=== PATIENT | female | born 1980 | race Caucasian/White ===

== ENCOUNTER 2018-07-25 13:00 | Inpatient (IN) ==
--- NOTE | 2018-07-25 13:11 | PROVIDER DOCUMENTATION ---
This chart was entered by Matthew Peter Scribe, acting as scribe for Jak Chavez CRNP. HPI-Respiratory General - General Chief Complaint: Shortness of Breath Stated Complaint: HURTS TO BREATHE Time Seen by Provider: 07/25/18 13:04 Source: patient Allergies/Adverse Reactions: Patient Allergies Allergy/AdvReac Type Severity Reaction Status Date / Time ketorolac tromethamine * Allergy HIVES Verified 04/21/17 07:56 [From Toradol] Home Medications: Home Medication List Medication Instructions Recorded Confirmed Last Taken Type Sulfamethoxazole/Trimethoprim 1 ea PO BID #14 tab 06/06/17 Unknown Rx [Bactrim Ds Tablet] Buprenorphine/Naloxone S.l. 1 each SL BID 10/10/17 10/10/17 Unknown History [Suboxone 8 mg/2 mg Film] Chlordiazepoxide [Librium] 10 mg PO TID PRN PRN 10/10/17 10/10/17 Unknown History Dicyclomine [Bentyl] 20 mg PO BID #20 cap 10/10/17 Unknown Rx Ondansetron [Zofran] 4 mg PO Q6H PRN PRN #20 tab 10/10/17 Unknown Rx Pregabalin [Lyrica] 50 mg PO DAILY 10/10/17 10/10/17 Unknown History - History of Present Illness-Resp Nature of Presenting Problem: 37 yof presents with cc of sob x 1 week. Reports been self treating. States now it hurst to breath , sharp in nature and movement makes it worse. Also reports she hasn't eaten anything in a week. Quality of Pain: reports: sharp Severity in ED: reports: moderate Onset/Duration: reports: 1 week ago Timing: reports: still present Review of Systems - Adult - REVIEW OF SYSTEMS - ADULT Constitutional: denies: chills, fever, fatique Eyes: reports: no symptoms reported Ears, Nose, Mouth & Throat: denies: ear pain, sinus problem, throat pain Cardiovascular: denies: chest pain, irregular heart rate, orthopnea, syncope Respiratory: reports: pleurisy, shortness of breath. denies: chronic cough, cough, dyspnea on exertion, wheezing Gastrointestinal: denies: abdominal pain, diarrhea, nausea, vomiting Genitourinary: denies: dysuria, discharge, frequency, flank pain, frequent UTI's , hematuria, hesitency, incontinence Musculoskeletal: denies: bone pain, back pain, joint pain, joint swelling, muscle aches, neck pain Integumentary: reports: no symptoms reported Neurological: reports: no symptoms reported Psychiatric: reports: no symptoms reported Endocrine: reports: no symptoms reported Hematologic/Lymphatic: reports: no symptoms reported Allergic/Immunologic: reports: no symptoms reported All Other Systems: Reviewed and Negative Past History - Adult - PAST MEDICAL HISTORY-ADULT Review of Records: reports: Nursing Assessment Review, Medications Reviewed Major Childhood Illnesses: reports: denies history Cardiovascular: reports: denies history Respiratory: reports: asthma Gastrointestinal: reports: denies history Obstetrical/Gynecological: reports: denies history Genitourinary: reports: denies history Musculoskeletal: reports: other (RESTLESS LEG SYNDROME-NOT ON MEDICATION CURRENTLY FOR THIS.) Neurological: reports: denies history Psychiatric: reports: depression Endocrine/Immune: reports: denies history Other Conditions: reports: denies history Additional History: RLS - PRIOR SURGERIES/PROCEDURES Surgical/Procedure History: reports: cholecystectomy, tonsillectomy, other ( gastric bypass) - PRIOR HOSPITALIZATIONS Prior Hospitalizations: reports: none - IMMUNIZATION STATUS Childhood Immunizations: See Nurse Assessment Flu Vaccine: See Nurse Assessment - FAMILY HISTORY Family History: reviewed, not pertinent - SOCIAL HISTORY Smoking: non-smoker Substance Use: none/never Physical Exam-General - PHYSICAL EXAM-ADULT Initial Vital Signs Reviewed: Yes - CONSTITUTIONAL General Appearance: appears well, alert, no apparent distress - EYES Eyes: PERRL/EOMI, pink conjunctivae - HEAD, EARS, NOSE, MOUTH & THROAT HENMT: moist mucous membranes, TMs normal, pharynx normal - NECK Neck: non-tender, full range of motion, supple, normal inspection - RESPIRATORY Respiratory: chest non-tender, lungs clear, normal breath sounds, no pleuratic chest pain, no respiratory distress, no accessory muscle use - CARDIOVASCULAR Cardiovascular: regular rate, rhythm, tachycardia - GASTROINTESTINAL (ABDOMEN) Abdominal Exam: normal bowel sounds, non tender, soft, no organomegaly, no pulsatile mass - MUSCULOSKELETAL Back Exam: normal inspection, no CVA tenderness, no vertebral tenderness Extremity: normal range of motion, non-tender, normal gait, normal inspection - SKIN Integumentary: normal color, normal turgor, warm/dry - NEUROLOGIC Neurologic: grossly normal - PSYCHIATRIC Psych/Mental Status: normal mood/affect, normal thought content, normal thought process, oriented x 3 Progress - PLAN OF CARE/RESULTS Progress/Plan/Lab Results: Vital Signs - 8 hr 07/25/18 13:02 07/25/18 14:46 07/25/18 16:30 Temperature 98.5 F Pulse Rate 109 H 115 H 113 H Respiratory Rate 22 18 18 Blood Pressure 118/83 129/70 135/83 O2 Sat by Pulse Oximetry 96 93 L 93 L 07/25/18 16:33 Temperature 99.3 F Pulse Rate 110 H Respiratory Rate 29 H Blood Pressure 152/77 O2 Sat by Pulse Oximetry 93 L Bedside Urine ED: Urine Bedside Start: 07/25/18 13:12 Freq: ORDERED Status: Active Protocol: Activity Type Activity Date Activity User E-Sign Co-Sign Detail Recorded Client Recorded Date Recorded By Document 07/25/18 13:37 [id number] 07/25/18 13:37 [id number] 07/25/18 13:37 Point of Care [Bedside Point of Care] -Lot # [id number] - Results Negative -Control Line Visible? Yes Laboratory Results - last 24 hr 07/25/18 07/25/18 07/25/18 16:00 16:00 16:00 WBC 31.06 H RBC 4.60 Hgb 10.4 L Hct 32.9 L MCV 71.5 L MCH 22.6 L MCHC 31.6 L RDW Std Deviation 15.9 H Plt Count 435 H MPV 11.8 H Immature Gran % (Auto) 3.4 H Neut % (Auto) 80.5 H Lymph % (Auto) 7.9 L [place] % (Auto) 7.7 Eos % (Auto) 0.3 Baso % (Auto) 0.2 Immature Gran # (Auto) 1.05 H Neut # (Auto) 25.02 H Lymph # (Auto) 2.46 [place] # (Auto) 2.38 H Eos # (Auto) 0.08 Baso # (Auto) 0.07 Segmented Neutrophils 82 H Band Neutrophils 3 H Lymphocytes 6 L Monocytes 5 Eosinophils 2 Metamyelocytes 2.0 Pathologist Review Hypochromia 2+ Large Platelets OCCASIONAL Poikilocytosis 1+ Anisocytosis 1+ Microcytosis OCCASIONAL Macrocytosis OCCASIONAL Target Cells OCCASIONAL Ovalocytes OCCASIONAL Sodium 134 L Potassium 3.0 L Chloride 94 L Carbon Dioxide 27 Anion Gap 13 BUN 6 L Creatinine 0.3 L Estimated GFR/1.73 m2 > 60 BUN/Creatinine Ratio 20 Glucose 106 H Calculated Osmolality 266 Calcium 7.8 L Total Bilirubin 0.80 AST 20 ALT 7 L Alkaline Phosphatase 199 H Total Protein 6.6 Albumin 2.6 L Globulin 4.0 Albumin/Globulin Ratio 1.0 Plasma Lactate 1.1 Orders Category Date Time Status ED: Urine Bedside ORDERED Care 07/25/18 13:12 Active Saline Loc NOW Care 07/25/18 15:30 Active CHEST-2 VIEWS [RAD] Stat Exams 07/25/18 13:43 Completed BLOOD CULTURE [BLDCUL] Stat Lab 07/25/18 16:13 Ordered CBC WITH ELECTRONIC DIFF [HEME] Stat Lab 07/25/18 16:00 Completed COMPREHENSIVE METABOLIC PANEL [CHEM] Stat Lab 07/25/18 16:00 Completed LACTATE, PLASMA [CHEM] Stat Lab 07/25/18 16:00 Completed PRO B-NATRIURETIC PEPTIDE Stat Lab 07/25/18 16:[address] W/POSS RFLX CULT [URINALYSIS] Stat Lab 07/25/18 16:54 Uncollected 0.9% Sodium Chloride Inj [Ns] 1,000 ml Med 07/25/18 16:37 Discontinued IV KVO Azithromycin 500 mg/Ns [Zithromax 500 mg/Ns] Med 07/25/18 16:32 Active 500 mg in 250 ml IV NOW CefTRIAXONE [Rocephin] 1 gm Med 07/25/18 16:32 Discontinued 0.9% Sodium Chloride Inj [Ns] 50 ml IV NOW Potassium Chloride E.r. [Klor-Con] Med 07/25/18 17:04 Discontinued 40 meq PO NOW ONE EKG [EKG] Stat Ther 07/25/18 13:15 Draft Result Diagrams: 07/25/18 16:00 07/25/18 16:00 - EKG 1 Time of EKG reading by physician:: 13:16 EKG Read and Signed by:: Jeison Peter EKG Interpretation (*Must complete 3 of following elements*): Abnormal Rate: 115 Rhythm: sinus tachy [place]: normal QRS: normal [place] Interval: normal ST Wave: normal - XRAY 1 XRAY Study: Chest ([facility] [address], [address], [place] [id number] Department of Imaging Patient: GERMÁN LEOS Date: #: [id number] : 1980[facility] [id number] Age/ Sex: 37/FRoom/Bed: Loc: P.ED Ordering Physician: Jak Chavez Family Physician: None,PCP Reason for Procedure: SOB Signed EXAM: CHEST-2 VIEWS - 07/25/2018 HISTORY: SOB TECHNIQUE: Chest two views COMPARISON: 01/16/2014 one view chest FINDINGS: Heart size appears mildly enlarged and increased compared to prior. Inspiration is mildly shallow. There is consolidation at the bilateral lung bases, most dense at the lower lobes. There are small bilateral pleural effusions. Upper lung vascular markings do not appear grossly distended. There is no pneumothorax identified. IMPRESSION : Findings which may relate to bibasilar pneumonia and/or unusual pulmonary edema/congestive heart failure. Electronically signed by Sylvester Joseph 4:43 PM 07/25/18 1643 Interpreting Physician: Sylvester Joseph MD Dictated Date/Time: 07/25/18 3879 cc: Jak Chavez; None,PCP) XRAY Interpretation: Bilateral pneumonia (Jeison Peter MD) - CONSULTS/PCP/HOSPITALIST Notification #1 *Consult/PCP/Hospitalist*: Dr. Escobar Time Discussed: 17:18 Reason/Comments: Admission Consult Disposition: Admit Departure - Departure Date of Disposition Decision: 07/25/18 Time of Disposition Decision: 16:50 DIAGNOSIS: Hypokalemia, Hypocalcemia Pneumonia Qualifiers: Pneumonia type: due to unspecified organism Laterality: bilateral Lung location : unspecified part of lung Qualified Code(s): J18.9 - Pneumonia, unspecified organism CHF (congestive heart failure) Qualifiers: Heart failure type: unspecified Heart failure chronicity: unspecified Qualified Code(s): I50.9 - Heart failure, unspecified Disposition: ADMITTED INPATIENT 09 Certified Medical Emergency: Emergent Condition: Stable Referrals and Follow-Ups: None,PCP [Primary Care Provider] - - Critical Care Note This patient required my direct & personal management of CC.: No Attestation - Physician/ [place] Attestation Patient care was provided by Advanced Practice Provider:: Yes Advanced Practice Provider:: Jak Chavez Advanced Practice Provider documentation review:: The Mid-level provider documentation, treatment plan and medical decision making was reviewed by the physician who agrees with all treatment and medical decision making by the MLP. The physician spent face to face time with patient:: No Advanced Practice Provider documentation review:: Supervising physician onsite and consulted in the evaluation and care of this patient. The physician did not have a face to face encounter with the patient. This chart was documented by the indicated scribe, (Matthew Peter Scribe) and accurately reflects the services I performed and decisions made by me, Jak Chavez CRNP, as attested by the provider's signature.
--- NOTE | 2018-07-25 15:06 | EKG Report ---
Test Performed on : 07/25/2018 1:16:25 PM Test Reason : CP Blood Pressure : / mmHG Vent. Rate : 115 BPM Atrial Rate : 115 BPM P-R Int : 138 ms QRS Dur : 088 ms QT Int : 326 ms P-R-T Axes : 039 013 015 degrees QTc Int : 450 ms Sinus tachycardia. Otherwise normal ECG When compared with ECG of 01-JUN-2014 15:49, T wave amplitude has decreased in Anterior leads Unconfirmed Result
[2018-07-25] MEDS ORDERED: ZITHROMAX 500 MG/NS 500 MG/250 ML IVPB IV ONE (16:32)
[2018-07-25] MEDS ORDERED: ROCEPHIN 1 GM in NS 50 ML IV ONE (16:32)
[2018-07-25 16:37] LABS: BASO# 0.07 X1000 (0.0-0.2); BASO% 0.2 % (0.0-0.8); EOS# 0.08 X1000 (0.0-0.7); EOS% 0.3 % (0.0-10.0); HEMATOCRIT 32.9 % (37.0-47.0); HEMOGLOBIN 10.4 g/dL (12.0-16.0); IMM GRAN# 1.05 X1000 (0.0-0.04); IMM GRAN% 3.4 % (0.0-0.5); LYMPH# 2.46 X1000 (1.2-3.4); LYMPH% 7.9 % (20.5-51.1); MCH 22.6 PG (27-31); MCHC 31.6 g/dL (33-37); MCV 71.5 FL (81-99); MONO# 2.38 X1000 (0.11-0.59); MONO% 7.7 % (1.7-9.3); MPV 11.8 FL (7.4-10.4); NEUT# 25.02 X1000 (1.4-6.5); NEUT% 80.5 % (42.2-75.2); PLT 435 X1000 (130-400); RDW 15.9 % (11.5-14.5); WBC 31.06 X1000 (4.8-10.8)
[2018-07-25] MEDS ORDERED: NS 1,000 ML IV ONE (16:37)
--- NOTE | 2018-07-25 16:45 | Diag Imaging Result Doc PS360 ---
EXAM: CHEST-2 VIEWS - 07/25/2018 HISTORY: SOB TECHNIQUE: Chest two views COMPARISON: 01/16/2014 one view chest FINDINGS: Heart size appears mildly enlarged and increased compared to prior. Inspiration is mildly shallow. There is consolidation at the bilateral lung bases, most dense at the lower lobes. There are small bilateral pleural effusions. Upper lung vascular markings do not appear grossly distended. There is no pneumothorax identified. IMPRESSION: Findings which may relate to bibasilar pneumonia and/or unusual pulmonary edema/congestive heart failure. Electronically signed by Sylvester Joseph 07/25/2018 4:43 PM
[2018-07-25 16:54] LABS: AGAP 13; ALBUMIN 2.6 g/dL (3.5-5.0); ALKALINE PHOSPHATASE 199 U/L (32-104); BUN 6 mg/dL (8-22); CALCIUM 7.8 mg/dL (8.8-10.2); CHLORIDE 94 mmol/L (98-107); COSMO 266; CREATININE 0.3 mg/dL (0.5-0.9); ESTIMATED GFR > 60; GLUCOSE 106 mg/dL (70-104); GOT 20 U/L (10-30); GPT 7 U/L (10-36); SODIUM 134 mmol/L (136-145); TCO2 27 mmol/L (25-35); TOTAL PROTEIN 6.6 g/dL (6.3-8.3)
[2018-07-25 16:56] LABS: BANDS 3 % (0-1); EOS 2 % (1-10); LYMPHS 6 % (21-51); MONO 5 % (1-9); SEGS 82 % (42-75)
[2018-07-25 16:57] LABS: ANISOCYTOSIS 1+; HYPOCHROM 2+; MICROCYTOSIS OCCASIONAL; OVALOCYTES OCCASIONAL; POIKILOCYTOSIS 1+; TARGET CELLS OCCASIONAL
[2018-07-25 16:58] LABS: LARGE PLATELETS OCCASIONAL
[2018-07-25] MEDS ORDERED: KLOR-CON PO ONE (17:04)
[2018-07-25 18:14] LABS: BILIRUBIN URINE NEGATIVE (NEGATIVE); BLOOD URINE NEGATIVE (NEGATIVE); CLARITY CLEAR (CLEAR); COLOR YELLOW; GLUCOSE URINE NEGATIVE (NEGATIVE); KETONE URINE 3+(Large) mg/dL (NEGATIVE); LEUKOCYTES URINE TRACE (NEGATIVE); NITRITE URINE NEGATIVE (NEGATIVE); PROTEIN URINE TRACE mg/dL (NEGATIVE); SP GRAVITY URINE 1.005; UROBILINOGEN URINE 12 mg/dL
[2018-07-25 18:16] LABS: URINE BACTERIA 1+ /HFP; URINE CAST NONE SEEN /LPF; URINE CRYSTAL NONE SEEN /HPF; URINE EPITHELIAL CELLS <10 /HPF (<10); URINE SOURCE CLEAN CATCH; URINE WBC <10 /HPF (<10); URINE YEAST NONE SEEN /HPF
[2018-07-25] MEDS ORDERED: MUCOMYST 20% INH SCH ×2 (20:50→22:14)
[2018-07-25] MEDS ORDERED: DUONEB (A & A) INH PRN (20:50)
[2018-07-25] MEDS: DUONEB (A & A) INH SCH (22:40)
[2018-07-25] MEDS: MORPHINE IV PRN (23:08)
[2018-07-25] MEDS ORDERED: ROCEPHIN 1 GM in NS 50 ML IV SCH (23:45)
[2018-07-26] MEDS: PROTONIX IV SCH (00:42)
[2018-07-26] MEDS: DUONEB (A & A) INH SCH ×6 (03:01→22:57)
[2018-07-26] MEDS: MORPHINE IV PRN ×2 (03:56→11:14)
--- NOTE | 2018-07-26 05:59 | HISTORY AND PHYSICAL ---
CHIEF COMPLAINT: Shortness of breath. HISTORY OF PRESENT ILLNESS: This is a 37-year-old female with history of asthma who presents with progressive shortness of breath for the last week, also cough productive of greenish sputum. Now she has pleurisy with chest pain with shortness of breath, any movement makes it worse, poor p.o. intake. No sick contacts noted. The patient came to the ER for evaluation, she was found to have pneumonia and elevated white count and she was admitted for pneumonia and respiratory failure. When I saw her she was having increased work of breathing, although not tripod. She had a very elevated white count of 31,000 and she was admitted for treatment. PAST MEDICAL HISTORY: Chronic pain issues. No diabetes. No hypertension. PAST SURGICAL HISTORY: No cholecystectomy. No appendectomy. SOCIAL HISTORY: She denies any smoking history. No alcohol. No street drugs. FAMILY HISTORY: Was reviewed and noncontributory. ALLERGIES: Toradol. MEDICATIONS: She takes Suboxone, Librium, Lyrica, Bentyl, Zofran, Bactrim. REVIEW OF SYSTEMS: Negative times a 10 point review of systems. PHYSICAL EXAMINATION: VITAL SIGNS: Blood pressure was 146/91, heart rate of 111, respiratory rate of 24, temperature is 99.3 degrees. GENERAL: A well-developed female in no acute distress. HEAD: Head exam was normocephalic and atraumatic EYES: Pupils are equal, round and reactive to light. Extraocular movements are intact. EAR/NOSE/THROAT: Mucous membranes moist. CARDIOVASCULAR: Regular rate and rhythm. No murmurs, gallops, or rubs. PULMONARY: Bilateral breath sounds. Clear to auscultation. GASTROINTESTINAL: Soft, nontender and nondistended. Bowel sounds are positive. LABORATORY DATA: White count 31, hemoglobin and hematocrit 10 and 32, platelets 425,000. Sodium 134, potassium 3, otherwise normal. Urine negative. Chest x-ray showed bibasilar pneumonia versus pulmonary edema. ASSESSMENT: This is a 37-year-old female presenting with progressive shortness of breath, presenting with pneumonia and possible pulmonary edema with volume overload. 1. Pneumonia. She will be treated with empiric antibiotics, Rocephin and azithromycin, pulmonary toilet, nebulizer treatments, and Mucomyst. 2. Pulmonary edema. We will continue diuretics and follow closely. No previous history of heart failure. We may need to work that up further with echocardiogram. We will continue to monitor. 3. Chronic pain disorder. We will continue regular medications and follow. DISPOSITION: Pending her clinical situation hopefully home in the next 1-2 days. cc: Jordan Escobar MD MTDD
[2018-07-26] MEDS ORDERED: LOVENOX SUBQ SCH (06:00)
[2018-07-26 06:58] LABS: BASO# 0.13 X1000 (0.0-0.2); BASO% 0.3 % (0.0-0.8); EOS# 0.08 X1000 (0.0-0.7); EOS% 0.2 % (0.0-10.0); HEMATOCRIT 30.9 % (37.0-47.0); HEMOGLOBIN 9.7 g/dL (12.0-16.0); IMM GRAN% 3.8 % (0.0-0.5); LYMPH# 3.39 X1000 (1.2-3.4); LYMPH% 9.1 % (20.5-51.1); MCH 22.4 PG (27-31); MCHC 31.4 g/dL (33-37); MCV 71.2 FL (81-99); MONO# 2.64 X1000 (0.11-0.59); MONO% 7.1 % (1.7-9.3); MPV 11.4 FL (7.4-10.4); NEUT# 29.61 X1000 (1.4-6.5); NEUT% 79.5 % (42.2-75.2); PLT 435 X1000 (130-400); RBC 4.34 XMIL (4.2-5.4); RDW 16.1 % (11.5-14.5); WBC 37.25 X1000 (4.8-10.8)
[2018-07-26 07:04] LABS: AGAP 15; BUN 7 mg/dL (8-22); CALCIUM 7.2 mg/dL (8.8-10.2); CHLORIDE 95 mmol/L (98-107); COSMO 268; CREATININE 0.4 mg/dL (0.5-0.9); ESTIMATED GFR > 60; GLUCOSE 93 mg/dL (70-104); SODIUM 135 mmol/L (136-145); TCO2 25 mmol/L (25-35)
[2018-07-26 07:51] LABS: ANISOCYTOSIS 1+; BANDS 12 % (0-1); LYMPHS 6 % (21-51); MONO 6 % (1-9); POIKILOCYTOSIS 1+; SEGS 73 % (42-75)
[2018-07-26 07:52] LABS: MICROCYTOSIS 1+
[2018-07-26] MEDS: MUCOMYST 20% INH SCH ×2 (08:18→19:30)
[2018-07-26] MEDS ORDERED: LIBRIUM PO PRN (09:31)
[2018-07-26] MEDS: MAXIPIME 2 GM in NS 100 ML IV SCH ×2 (11:11→20:54)
[2018-07-26] MEDS ORDERED: NORCO-10 PO PRN (15:02)
--- NOTE | 2018-07-26 15:10 | Diag Imaging Result Doc PS360 ---
CT THORAX W/CONTRAST - 07/26/2018 INDICATION: pneumonia COMPARISON: Chest x-ray 07/25/2018 FINDINGS: There are apparent gastric bypass changes. There is a small right and moderate left pleural effusion. There is extensive consolidation of both lower lobes and the lingula. There is also some atelectasis/consolidation of the left upper lobe. Lung volumes are low. No adenopathy. Airways are clear. IMPRESSION: 1. Bilateral pleural effusions. 2. Dense consolidation bilaterally compatible with lobar pneumonia. This exam was performed using automated exposure control, adjustment of mA or kV according to patient size, and/or use of iterative reconstruction technique Electronically signed by Raymond Schmidt 07/26/2018 3:09 PM
--- NOTE | 2018-07-26 15:26 | PROGRESS NOTE ---
DATE: 07/26/2018 SUBJECTIVE: Patient has no focal complaints. OBJECTIVE: Vital Signs: Blood pressure is 154/81, heart rate of 111, respiratory rate of 20, temperature was 97.9, 93% on 2 L. Examination: She is still complaining of severe pleurisy. She is kind of just very puny as far as being able to get up and around and still short of breath, but not working as badly as she did yesterday. Blood pressure is as described. I think she is afebrile. LABORATORY DATA: White count is still very high, 31 yesterday, 37 today, hemoglobin and hematocrit 9 and 30, platelets 435,000. She has 12% bands. Basic was normal. Lactate was normal. PROBLEM LIST: 1. Multilobar pneumonia, possibly gram-negative type. We will continue antibiotics, breathing treatments and see how closely she does. 2. Chronic pain disorder. Will continue Suboxone and follow closely. She is on Suboxone. She can't be on any other pain medications, so will have to validate that. 3. Pending her clinical status, I think she is going to be difficult to motivate because she really does need to use spirometry and get out of bed, and I think she is going to not move up and around as much as she can, but we will work with her on getting that better. DISPOSITION: Anticipate discharge in the next 1 [address] scan today to better evaluate her pneumonia. She clearly has bronchial breath sounds on both sides with a egophony on the right. cc: Jordan Escobar MD
[2018-07-26] MEDS: NUBAIN IV PRN ×2 (17:09→23:27)
[2018-07-26] MEDS: ZITHROMAX 500 MG/NS 500 MG/250 ML IVPB IV SCH (17:11)
[2018-07-26 19:08] LABS: BILIRUBIN URINE NEGATIVE (NEGATIVE); BLOOD URINE NEGATIVE (NEGATIVE); CLARITY SL. CLOUDY (CLEAR); COLOR YELLOW; GLUCOSE URINE NEGATIVE (NEGATIVE); KETONE URINE 3+(Large) mg/dL (NEGATIVE); LEUKOCYTES URINE TRACE (NEGATIVE); NITRITE URINE NEGATIVE (NEGATIVE); PH URINE 6.5; PROTEIN URINE 1+(30 mg/dL) mg/dL (NEGATIVE); UROBILINOGEN URINE NORMAL
[2018-07-26 19:09] LABS: URINE SOURCE CLEAN CATCH
[2018-07-26 19:11] LABS: URINE BACTERIA NEGATIVE /HFP; URINE EPITHELIAL CELLS <10 /HPF (<10); URINE RBC <10 /HPF (<10); URINE WBC <10 /HPF (<10); URINE YEAST NONE SEEN /HPF
[2018-07-26 19:12] LABS: URINE CAST NONE SEEN /LPF; URINE CRYSTAL NONE SEEN /HPF; URINE SMALL ROUND CELLS TRANSITIONAL PRESENT
[2018-07-26] MEDS: SUBOXONE 8 MG/2 MG FILM SL SCH (20:54)
--- NOTE | 2018-07-26 22:46 | ECHO REPORT ---
ORDER DATE: 07/26/2018 MEASUREMENTS: Left ventricular end-diastolic diameter 4.7, systolic diameter 3.0, septal thickness 1.0, posterior wall thickness 0.9, aortic root 3.4, left atrium 3.9. SUMMARY: 1. Technically difficult study due to limited acoustic window quality. 2. Intravenous echo contrast agent Definity was utilized to enhance endocardial definition. 3. Aortic valve not well imaged. Peak gradient across the aortic valve is 10 mmHg. Mitral and tricuspid valves are without gross structural abnormality. Pulmonic valve is not well imaged. Aortic root is normal in size. 4. Normal left ventricular dimensions suggested. Estimated left ventricular ejection fraction appears to be at least 60%. No regional wall motion abnormalities are evident. Left atrium, right atrium, right ventricle are normal in size with grossly preserved right ventricular systolic function. 5. Small posterior pericardial effusion. 6. Appearance of inferior vena cava suggests normal central venous pressure. CONCLUSIONS: 1. Technically difficult study. 2. No significant valvular abnormality evident. 3. Normal left ventricular systolic function without wall motion abnormality evident. 4. Small posterior pericardial effusion. cc: MD Jordan Lora MD
[2018-07-27] MEDS: TYLENOL PO PRN ×2 (00:50→08:40)
[2018-07-27] MEDS: PROTONIX IV SCH ×2 (00:50→22:55)
[2018-07-27] MEDS: DUONEB (A & A) INH SCH ×6 (03:35→23:46)
[2018-07-27] MEDS: MUCOMYST 20% INH SCH ×4 (07:25→19:52)
[2018-07-27 08:04] LABS: AGAP 10; BUN 7 mg/dL (8-22); CALCIUM 7.5 mg/dL (8.8-10.2); CHLORIDE 95 mmol/L (98-107); COSMO 267; CREATININE 0.4 mg/dL (0.5-0.9); ESTIMATED GFR > 60; GLUCOSE 111 mg/dL (70-104); SODIUM 134 mmol/L (136-145); TCO2 29 mmol/L (25-35)
[2018-07-27 08:14] LABS: BASO% 0.6 % (0.0-0.8); EOS# 0.26 X1000 (0.0-0.7); EOS% 0.7 % (0.0-10.0); HEMATOCRIT 31.6 % (37.0-47.0); HEMOGLOBIN 9.9 g/dL (12.0-16.0); IMM GRAN# 1.85 X1000 (0.0-0.04); IMM GRAN% 5.1 % (0.0-0.5); LYMPH# 3.69 X1000 (1.2-3.4); LYMPH% 10.2 % (20.5-51.1); MCH 22.6 PG (27-31); MCHC 31.3 g/dL (33-37); MONO# 2.48 X1000 (0.11-0.59); MONO% 6.9 % (1.7-9.3); MPV 11.3 FL (7.4-10.4); NEUT# 27.64 X1000 (1.4-6.5); NEUT% 76.5 % (42.2-75.2); PLT 546 X1000 (130-400); RBC 4.39 XMIL (4.2-5.4); RDW 16.4 % (11.5-14.5); WBC 36.12 X1000 (4.8-10.8)
[2018-07-27] MEDS: LYRICA PO SCH (08:27)
[2018-07-27] MEDS: SUBOXONE 8 MG/2 MG FILM SL SCH ×2 (08:27→20:54)
[2018-07-27] MEDS ORDERED: LOVENOX SUBQ SCH (09:00)
[2018-07-27] MEDS: MAXIPIME 2 GM in NS 100 ML IV SCH ×2 (09:09→20:54)
[2018-07-27 09:25] LABS: ANISOCYTOSIS 1+; BANDS 1 % (0-1); EOS 2 % (1-10); LYMPHS 9 % (21-51); MONO 3 % (1-9); NRBC 1 % (0-0); POIKILOCYTOSIS 1+; SEGS 78 % (42-75)
[2018-07-27 09:26] LABS: MICROCYTOSIS 2+
[2018-07-27] MEDS ORDERED: LASIX IV ONE (11:05)
--- NOTE | 2018-07-27 11:27 | Diag Imaging Result Doc PS360 ---
EXAM: CHEST-PORTABLE - 07/27/2018 HISTORY: pneumonia TECHNIQUE: Portable chest COMPARISON: 07/25/2018 FINDINGS: There has been interval development of near complete opacification of the left hemithorax. Appearance suggests that this largely relates to a large left pleural effusion, although underlying consolidation in the left lung cannot be excluded. There is infiltrate at the right base which appears to have decreased mildly. There is no evidence of pneumothorax. IMPRESSION: Near complete opacification of left hemithorax, apparently primarily by large left pleural effusion. Underlying left lung consolidation cannot be excluded, however. Electronically signed by Sylvester Joseph 07/27/2018 11:25 AM
--- NOTE | 2018-07-27 11:34 | PROGRESS NOTE ---
DATE: 07/27/2018 SUBJECTIVE: Patient has no focal complaints. OBJECTIVE: Vital Signs: Blood pressure 140/84, heart rate of 115, respiratory rate of 27, temperature 97.8 degrees, 94% currently on 50%. She did have to be placed on BiPAP last night. Cardiovascular: Regular rate and rhythm. Pulmonary: She has severe bronchial breath sounds. GI: Soft, nontender, nondistended. Bowel sounds were positive. Multilobar pneumonia with pleural effusion. She has a very large pleural effusion. It looks like it is worsening on the left side. I think she may need thoracentesis or thoracostomy. Laboratory Data: Showed white count that is up to 36,000, hemoglobin and hematocrit 9 and 31, platelets 546,000. Sodium 134. PROBLEM LIST: 1. Multilobar pneumonia. We will continue antibiotics and breathing treatments. I am going to initiate diuresis. We will discuss the case with pulmonology. 2. Pleural effusion. I think she may need a tap so we will pursue that and continue to follow. 3. Chronic pain disorder. She is on Suboxone. We will continue that for the time being. 4. Hypoxic respiratory failure, is likely a combination of several issues. I anticipate if she is not much improved, we may have to transfer her as well for pulmonary consultation. cc: Jordan Escobar MD
[2018-07-27 11:49] LABS: I-STAT BE 6 mmoll (-2-3); I-STAT GLUCOSE 116 mg/dL (70-105); I-STAT HEMOGLOBIN 10.5 g/dL (11.5-17.5); I-STAT K 3.1 mmoll (3.5-4.9); I-STAT TCO2 32 mmoll (23-27); I-STAT pH 7.436 (7.350-7.450)
[2018-07-27] MEDS: ZYVOX 600 MG/D5W 600 MG/300 ML IVPB IV SCH ×2 (12:17→22:55)
[2018-07-27] MEDS: ZOFRAN IV PRN (14:38)
[2018-07-27] MEDS: ZITHROMAX 500 MG/NS 500 MG/250 ML IVPB IV SCH (16:02)
[2018-07-27] MEDS: NUBAIN IV PRN ×2 (16:04→21:13)
[2018-07-27 17:21] LABS: BLOOD TYPE ARTERIAL; SAMPLE BLOOD
[2018-07-27 17:26] LABS: HCO3-(ACT) 30.6 mmoll (20.0-26.0); PO2(98.6) 68 mmHg (60-100); pH(98.6) 7.43 (7.35-7.45)
[2018-07-27 17:27] LABS: ALLEN TEST YES; MODALITY VENTIMASK; PCO2(98.6) 45 mmHg (35-45)
[2018-07-27] MEDS: SODIUM CHLORIDE 0.9% INJ SCH (22:55)
[2018-07-27] MEDS: LASIX IV SCH (22:55)
[2018-07-28] MEDS: NUBAIN IV PRN ×3 (03:12→21:19)
[2018-07-28] MEDS: DUONEB (A & A) INH SCH ×4 (03:13→15:44)
[2018-07-28 06:47] LABS: BASO# 0.06 X1000 (0.0-0.2); BASO% 0.2 % (0.0-0.8); EOS# 0.14 X1000 (0.0-0.7); EOS% 0.4 % (0.0-10.0); HEMATOCRIT 31.6 % (37.0-47.0); IMM GRAN% 3.9 % (0.0-0.5); LYMPH# 3.18 X1000 (1.2-3.4); LYMPH% 8.2 % (20.5-51.1); MCH 22.5 PG (27-31); MCHC 31.6 g/dL (33-37); MCV 71.2 FL (81-99); MONO# 2.84 X1000 (0.11-0.59); MONO% 7.3 % (1.7-9.3); MPV 10.8 FL (7.4-10.4); NEUT# 31.07 X1000 (1.4-6.5); PLT 567 X1000 (130-400); RBC 4.44 XMIL (4.2-5.4); RDW 16.6 % (11.5-14.5); WBC 38.79 X1000 (4.8-10.8)
[2018-07-28 07:01] LABS: AGAP 14; BUN 7 mg/dL (8-22); CALCIUM 7.5 mg/dL (8.8-10.2); CHLORIDE 87 mmol/L (98-107); COSMO 259; CREATININE 0.3 mg/dL (0.5-0.9); ESTIMATED GFR > 60; GLUCOSE 101 mg/dL (70-104); POTASSIUM 3.3 mmol/L (3.5-5.1); SODIUM 130 mmol/L (136-145); TCO2 29 mmol/L (25-35)
--- NOTE | 2018-07-28 07:52 | Diag Imaging Result Doc PS360 ---
EXAM: CHEST-PORTABLE HISTORY: SOB TECHNIQUE: Portable upright chest COMPARISON: 07/27/2018 FINDINGS: There is near complete opacification of the left hemithorax. This may be due to combination of consolidation, atelectasis, and pleural fluid. The appearance is similar to the prior exam. There is pulmonary edema with vascular distention in the right lung. There are infiltrates in the right lung base as well. IMPRESSION: No interval improvement. Electronically signed by Emile Hou 07/28/2018 7:50 AM
--- NOTE | 2018-07-28 07:57 | PROGRESS NOTE ---
DATE: 07/28/2018 SUBJECTIVE: This patient is still short of breath. She is tachycardic, tachypneic. White blood cells are 38,000. X-ray yesterday showed a near complete opacification of the left hemithorax, with pleural effusion and possible lung consolidation. I do believe this patient needs to be evaluated by Pulmonary Department. I do believe this patient needs a thoracentesis as well. Infectious Disease Department should be on board due to her leukocytosis and multilobar pneumonia. OBJECTIVE: Vital Signs: Temperature 99.1 degrees, pulse 112, respiratory rate on the monitor 23, blood pressure 145/82, oxygen saturation 95% on a Venturi mask. HEENT: Head normocephalic. No trauma. PERRLA. Neck: Supple. No JVD. Central trachea. Chest: Decreased breath sounds mostly on the left side. Right lower lung crackles and rhonchi scattered, no wheezing. Abdomen: Soft, obese, protuberant. No pain. Extremities: No edema. No clubbing. No cyanosis. Neurological: The patient is alert and oriented x3. No focal deficits. LABORATORY: WBC 38.7, hemoglobin 31.6, hematocrit 71.2, platelet count 567,000. Sodium 130, potassium 3.3, chloride 87, bicarbonate 29, BUN 7, creatinine 0.3, glucose 101, calcium 7.5. ASSESSMENT AND PLAN: 1. Hypoxemic respiratory failure, likely secondary to multilobar pneumonia and pleural effusion. She is on a Venturi mask at this moment. I will try to transfer this patient to [facility], so she can be evaluated by Pulmonary Department and Infectious Disease Department. She does have multilobar pneumonia, leukocytosis, pleural effusion mostly on the left side with near complete opacification of that lung. We will continue with antibiotics. We will continue with diuretics. Like I said, likely this patient will be transferred to [facility], so she can be evaluated by Pulmonary Department. 2. Hypokalemia. I will replace the potassium today. 3. Microcytic anemia. This patient has a history of gastric bypass surgery. Probably, this microcytic anemia is due to vitamin deficiency/iron deficiency. I will get the anemia workup. 4. Multilobar pneumonia as per #1. Continue with antibiotics. Likely his patient will need to be evaluated by Infectious Disease Department. 5. Chronic pain disorder. She is Suboxone. Continue with same management. 6. Morbid obesity with a body mass index of 41.6. Diet and exercise has been discussed. CRITICAL CARE TIME: 35 minutes. cc: MD Jordan Cristobal MD
[2018-07-28 09:43] LABS: SEGS 86 % (42-75)
[2018-07-28 09:44] LABS: LYMPHS 8 % (21-51); MONO 6 % (1-9)
[2018-07-28] MEDS: KLOR-CON PO SCH ×2 (10:13→21:19)
[2018-07-28] MEDS: SUBOXONE 8 MG/2 MG FILM SL SCH ×2 (10:13→21:18)
[2018-07-28] MEDS: LYRICA PO SCH (10:14)
[2018-07-28] MEDS: MAXIPIME 2 GM in NS 100 ML IV SCH ×2 (10:14→21:19)
[2018-07-28] MEDS: MUCOMYST 20% INH SCH ×2 (11:33→15:44)
[2018-07-28] MEDS: LASIX IV SCH ×2 (12:25→23:04)
[2018-07-28] MEDS: ZYVOX 600 MG/D5W 600 MG/300 ML IVPB IV SCH ×2 (12:30→23:04)
--- NOTE | 2018-07-28 13:58 | Diag Imaging Result Doc PS360 ---
EXAM: US CHEST W/O MEDIASTINUM(LTD) HISTORY: pleural effusion TECHNIQUE: Ultrasound chest COMPARISON: None. FINDINGS: The size of the left pleural effusion is small in relation to the opacification seen on the plain film. No thoracentesis performed. Electronically signed by Emile Hou 07/28/2018 1:56 PM
[2018-07-28 18:54] LABS: ALLEN TEST YES; BE 11.8 mmoll (-3.0-3.0); BLOOD TYPE ARTERIAL; METHB 0.5 % (0.0-1.5); O2(CT) 12.7 mL/dL (15.0-23.0); PCO2(98.6) 48 mmHg (35-45); PO2(98.6) 56 mmHg (60-100); SAMPLE BLOOD; SAO2 90.9 % (95.0-100.0); THB 10.1 g/dL (11.5-17.4); pH(98.6) 7.49 (7.35-7.45)
[2018-07-28 18:58] LABS: MODALITY VENTIMASK; O2HB 89.2 % (95.0-99.0)
[2018-07-28] MEDS ORDERED: ZITHROMAX 500 MG/NS 500 MG/250 ML IVPB IV SCH (21:00)
[2018-07-28] MEDS: PROTONIX IV SCH (23:04)
[2018-07-29] MEDS: MUCOMYST 20% INH SCH ×5 (00:56→21:00)
[2018-07-29] MEDS: DUONEB (A & A) INH SCH ×8 (00:56→23:30)
[2018-07-29] MEDS: ZOFRAN IV PRN (01:20)
[2018-07-29] MEDS ORDERED: BLISTEX MEDICATED BERRY LIP BALM TOP PRN (01:26)
[2018-07-29 04:28] LABS: ALLEN TEST YES; BE 12.1 mmoll (-3.0-3.0); BLOOD TYPE ARTERIAL; HCO3-(ACT) 34.1 mmoll (20.0-26.0); METHB 0.9 % (0.0-1.5); O2(CT) 17.3 mL/dL (15.0-23.0); PO2(98.6) 56 mmHg (60-100); SAMPLE BLOOD; SAO2 89.1 % (95.0-100.0); THB 14.1 g/dL (11.5-17.4); pH(98.6) 7.44 (7.35-7.45)
[2018-07-29 04:29] LABS: MODALITY VENTIMASK
[2018-07-29 04:36] LABS: O2HB 87.5 % (95.0-99.0); PCO2(98.6) 57 mmHg (35-45)
[2018-07-29 05:54] LABS: BASO# 0.06 X1000 (0.0-0.2); BASO% 0.2 % (0.0-0.8); EOS# 0.19 X1000 (0.0-0.7); EOS% 0.6 % (0.0-10.0); HEMATOCRIT 31.5 % (37.0-47.0); HEMOGLOBIN 9.8 g/dL (12.0-16.0); IMM GRAN% 3.2 % (0.0-0.5); LYMPH# 2.86 X1000 (1.2-3.4); LYMPH% 8.4 % (20.5-51.1); MCH 22.7 PG (27-31); MCHC 31.1 g/dL (33-37); MCV 72.9 FL (81-99); MONO# 2.78 X1000 (0.11-0.59); MONO% 8.1 % (1.7-9.3); MPV 11.1 FL (7.4-10.4); NEUT# 27.14 X1000 (1.4-6.5); NEUT% 79.5 % (42.2-75.2); PLT 702 X1000 (130-400); RBC 4.32 XMIL (4.2-5.4); RDW 16.8 % (11.5-14.5); WBC 34.13 X1000 (4.8-10.8)
[2018-07-29 06:40] LABS: AGAP 12; ALB/GLOB RATIO 0.5; ALBUMIN 2.4 g/dL (3.5-5.0); ALKALINE PHOSPHATASE 177 U/L (32-104); BUN 9 mg/dL (8-22); CHLORIDE 85 mmol/L (98-107); COSMO 258; CREATININE 0.4 mg/dL (0.5-0.9); ESTIMATED GFR > 60; GLUCOSE 110 mg/dL (70-104); GOT 48 U/L (10-30); GPT 17 U/L (10-36); IRON SATURATION 8 %; POTASSIUM 4.2 mmol/L (3.5-5.1); SODIUM 129 mmol/L (136-145); TCO2 32 mmol/L (25-35); TIBC 185 ug/dL; TOTAL BILIRUBIN 0.74 mg/dL (0.20-1.00); TOTAL IRON 15 ug/dL (49-151); TOTAL PROTEIN 7.1 g/dL (6.3-8.3); UNBOUND IRON 170 ug/dL (112-346)
[2018-07-29 06:52] LABS: FERRITIN 407 ng/mL (13-150)
[2018-07-29] MEDS ORDERED: VANCOMYCIN IV PER PHARMACY MISC SCH (07:15)
--- NOTE | 2018-07-29 07:36 | Diag Imaging Result Doc PS360 ---
CHEST-PORTABLE - 07/29/2018 INDICATION: dyspnea COMPARISON: 07/28/2018 FINDINGS: Stable dense consolidation throughout the left lung. Stable patchy infiltrate in the right lung base. No new infiltrates. IMPRESSION: No change from prior. Electronically signed by Raymond Schmidt 07/29/2018 7:34 AM
[2018-07-29] MEDS: LYRICA PO SCH (08:34)
--- NOTE | 2018-07-29 10:13 | INFECTIOUS DISEASE CONSULT REP ---
DATE: 07/29/2018 CONCLUSION: Patient has a bilateral pneumonia. She also has bilateral pleural effusions, but they are small in size. Patient may have an underlying immunoglobulin deficiency. RECOMMENDATIONS: I agree with treating the patient with cefepime, I discontinued Zyvox and azithromycin and instead started the patient on vancomycin. I have also ordered a streptococcal urinary antigen, test and immunoglobulin levels. DISCUSSION: The patient in the past week has had progressive dyspnea and left- sided pleuritic chest pain. She did not have fever or shaking chills and she did not bring up any sputum. LABS AND RADIOLOGY: Her CBC shows a white count of 34,130, hemoglobin 9.8, and platelet count 702,000. Blood gases show pH of 7.44, pO2 of 56, and a pCO2 of 57. The creatinine is 0.4 , GFR is greater than 60. The patient's alkaline phosphatase was 177. Blood and urine cultures are sterile. CT scan of the chest showed dense consolidation bilaterally along with pleural effusions bilaterally. REVIEW OF SYSTEMS: Eyes and ears: The patient denies any trouble hearing or seeing. Neck: No stiffness. Respiratory: See present illness. Genitourinary: No dysuria or flank pain. The patient has been anorectic in the past 3 to 4 days. She is not having diarrhea. Endocrine: Patient does not have diabetes. Neurologic: Patient does not have any seizures. She has not lost any motor function. GI: The patient has had anorexia for the past 3 to 4 days. PAST MEDICAL HISTORY: [facility] history: The patient has never been . Last menstrual period was 2 weeks ago and patient said this is the normal time it comes. Previous hospitalizations and operations: She has had a cholecystectomy, gastric bypass, tonsillectomy, and the patient has been in for pulmonary edema. Medical Diseases: Positive for obesity. Infectious disease history: Positive for UTI. FAMILY HISTORY: Positive for diabetes mellitus, hypertension and myocardial infarction. SOCIAL HISTORY: [place] She is . She has dogs for pets. She is unemployed. She does not smoke cigarettes, drink alcoholic beverages or abuse drugs. ALLERGIES: The patient has an allergy to amoxicillin manifested by pruritus. MEDICATIONS: At home, she takes Suboxone, Librium and Lyrica. PHYSICAL EXAMINATION: Vital Signs: Temperature is 97.5, pulse 111, respirations 19, blood pressure is 130/81. Patient said she weighs 311 pounds. In the computer it says she weighs 250 pounds. General: This is an obese, young female. She does not appear to be in acute distress this morning. HEENT: She can hear my spoken words and see near objects. There is no drainage from the nose or ears. She does not have a white coating to her tongue. Lungs : The patient had rales on the right side and diminished breath sounds and dullness to percussion on the left side. Cardiovascular: Heart rate is regular. Abdomen: Soft and nontender. Neurologic: The patient is awake. She can move her extremities. There is no tremor. Her memory as regarding her medical history was intact. Integument: No rash. Thank you for the consult. cc: MD Jordan Brown MD [facility]ITAL[facility]
[2018-07-29] MEDS: LASIX IV SCH ×2 (10:53→23:10)
[2018-07-29] MEDS: SUBOXONE 8 MG/2 MG FILM SL SCH ×2 (10:53→23:10)
[2018-07-29] MEDS: MAXIPIME 2 GM in NS 100 ML IV SCH (10:54)
[2018-07-29] MEDS: VANCOMYCIN 2,000 MG in NS 500 ML IV SCH ×2 (11:35→22:10)
[2018-07-29] MEDS: NUBAIN IV PRN (11:44)
[2018-07-29] MEDS ORDERED: VENOFER 200 MG in NS 150 ML IV ONE (13:00)
[2018-07-29] MEDS: FOLIC ACID 1 MG in NS 50 ML IV SCH (14:46)
--- NOTE | 2018-07-29 16:57 | PROGRESS NOTE ---
DATE: 07/29/2018 SUBJECTIVE: The patient has no focal complaints. She is still breathing very rapidly and shallowly, but she is not much changed from yesterday. OBJECTIVE: She is now on high flow O2. Blood pressure is 141/69, heart rate of 118, respiratory rate of 21, temperature 98.4, saturation 91% on high flow. Cardiovascular: Regular rate and rhythm. Pulmonary: Bilateral breath sounds clear to auscultation. GI: Soft, nontender, and nondistended. Bowel sounds were positive. DIAGNOSTIC DATA: White count is 34 which is down a bit from 38. Hemoglobin and hematocrit are 9 and 31, platelets 702. The pH is 7.44, pCO2 is 57, pO2 is 56. Sodium is 129. Iron is 15, iron saturation of 8%, folate of 5.2. PROBLEMS: 1. Multilobar pneumonia with hypoxic respiratory failure. She is on a high flow O2 now and seems to be stable, but I do not think she is overall clinically improved. She has dense infiltrates in her left lung. Apparently had no fluid for thoracentesis, but she had clearly an effusion on her CT from a couple of days ago. Dr. Bains, and I agree with him, we feel that there may be an empyema there or a loculated effusion that may need decortication or at least drainage. Dr. Wright has been consulted for evaluation for that purpose. I do not think she is going to get better until that lung is better evacuated. Her antibiotics have been optimized per Dr. Antonio. 2. Probable multilobar pneumonia. She is on azithromycin. She is on vancomycin now. I had her on Zyvox, and she is on cefepime. I think he stopped the azithromycin, too. She is on vancomycin and cefepime essentially. 3. Anemia. She is folate and iron deficient. We will continue to supplement that. Dr. Antonio has also evaluated for immunoglobulin deficiency. 4. Chronic pain disorder. She is on Suboxone, and we will continue treatment. 5. Hypokalemia that has improved. I am going to continue diuretics for the time being. 6. Morbid obesity. Obviously a contributing factor. 7. She is only 37 to have a devastating pneumonia. I am going to check an HIV because I think she does have a drug history problem in the past. We will look at that as well. Certainly at risk for MRSA. cc: Jordan Escobar MD
[2018-07-29] MEDS: PROTONIX IV SCH (23:10)
[2018-07-30] MEDS: MAXIPIME 2 GM in NS 100 ML IV SCH ×2 (00:14→10:04)
--- NOTE | 2018-07-30 03:18 | CONSULTATION ---
DATE OF CONSULTATION: 07/29/2018 REQUESTING PROVIDER: Dr. Joseph Dhillon. REASON FOR CONSULTATION: Respiratory failure, pneumonia, and pleural effusion. HISTORY OF PRESENT ILLNESS: This is a 37-year-old female with a medical history of exercise-induced asthma and chronic pain syndrome. She presents to the ER on with progressive shortness of breath with mild productive cough for 1 week. She has been admitted to the [facility] and treated with pneumonia and respiratory failure. However, during this period of time, her chest x-ray progressively worsened. Chest x-ray on 07/27/2018 showed a near complete opacification of the left hemithorax with pleural effusion and possible lung consolidation. The patient was transferred to this service last night for consultation from departments of pulmonology and the infectious disease. At the time of my examination, patient reports she is not feeling better. The patient reports before she became sick, she had been taking care of her who had flu at that time. After her recovered she and her [id number] got sick. She reports it started with a fever on Wednesday night (07/24/2018), nausea with poor appetite, but no vomiting, fand severe pounding back pain radiating to the leg. She denies chest pain or palpitation. PAST MEDICAL HISTORY: Exercise-induced asthma and chronic pain syndrome. PAST SURGICAL HISTORY: Cholecystectomy, gastric bypass, tonsillectomy. SOCIAL HISTORY: The patient is and lives with her and mother-in -law. She has 2 dogs for pets for more than 3 years. She denies any history of alcohol, tobacco or illicit drug use. FAMILY HISTORY: Positive for diabetes, hypertension, and heart attack. ALLERGIES: Toradol and amoxicillin. REVIEW OF SYSTEMS: A 10-point review of systems was conducted and the pertinents are listed within the HPI, otherwise noncontributory. PHYSICAL EXAMINATION: Vital Signs: Temperature 98.2 degrees, blood pressure 152/92, pulse 106, respiratory rate 20, oxygen saturation 92% on a NC with high flow of oxygen at this time. General: This is an obese young female. She appears pale and diaphoretic, but is alert and responsive with no acute respiratory distress noted. The patient has Garcia in and the urine in the drainage bag appears cloudy. Respiratory: Diminished breathing sounds bibasilarly with left side worse than right side and inspiratory crackles bilaterally. No wheezing noted. Cardiovascular: Regular rate and rhythm. Gastrointestinal: Normoactive bowel sounds in all 4 quadrants. Soft, nontender, obese and slightly distended. Extremities: No pedal edema. BUE appears puffy. No clubbing. No cyanosis. Neurologic: The patient is alert and oriented x3. Her speech is fluent. She is able to follow commands. IMAGING DATA: Chest x-ray reveals stable dense consolidation throughout the left lung. Stable patchy infiltrates in the right lung base and no new infiltrates. LABORATORY DATA: White blood cells 34.13, hemoglobin 9.8, hematocrit 31.5, platelet 702,000. Sodium 129, potassium 4.2, chloride 85, carbon dioxide 32, BUN 9, creatinine 0.4 , glucose 110. ABG: pH 7.44, pCO2 of 57, PO2 of 56, HC03 of 34.1, base excess 12.1, and oxyhemoglobin 87.5. ASSESSMENT AND PLAN: This is a 37-year-old female with a medical history of exercise- induced asthma and chronic pain syndrome. The patient has been admitted to the Intensive Care Unit with acute hypoxemic respiratory failure, a multilobar pneumonia and pleural effusions. 1. Acute hypoxemic and hypercapnic respiratory failure likely secondary to multilobar pneumonia and pleural effusions. She is on high flow rate NC at this time. We agree to continue with antibiotic and diuretics, Continue supplemental oxygen and consider BiPAP if needed; Continue with pulmonary toilet, nebulizer treatment and Mucomyst. We will check chest x-ray and arterial blood gases routinely. 2. Multilobar pneumonia. We agree with antibiotics and Dr. Antonio the Infectious Disease Specialist is on board. 3. Bilateral pleural effusion. It is likely empyema. Agree with thoracentesis and will start from there. 4. Continue GI and DVT prophylaxis. Thank you for the courtesy of this consult. Dictated by JEN Jolley for Nata Bains MD cc: JEN Jolley MD Alexis R. Penot, MD [facility] SYSTEMArnulfo
[2018-07-30] MEDS: DUONEB (A & A) INH SCH ×6 (03:30→23:06)
--- NOTE | 2018-07-30 04:38 | CONSULTATION ---
DATE OF CONSULTATION: 07/29/2018 HISTORY OF PRESENT ILLNESS: Ms. Ruthie Singh is a 37-year-old, morbidly obese white female who was initially hospitalized at [facility] on 07/25/2018 with pneumonia and has subsequently been transferred to [facility]. Prior to her presentation to the emergency department, she had a 1-week history of what she felt was the flu. She presented with shortness of breath and chest pain, and a chest x-ray suggested bibasilar pneumonia. She was admitted and has been treated with IV antibiotics and pulmonary physiotherapy. We were asked to evaluate her because of a left pleural effusion. PAST MEDICAL HISTORY: Gastric bypass performed in [place], [place], 9 to 10 years ago. Chronic pain. SOCIAL HISTORY: She lives with her . They have no car, and she walks to work. 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 FAMILY HISTORY: Noncontributory. ALLERGIES: Toradol. MEDICATIONS: Suboxone, Librium, Lyrica, Bentyl, Zofran, and Bactrim. REVIEW OF SYSTEMS: Fourteen-point review of systems was performed, and she said that she was in good health prior to this pneumonia. PHYSICAL EXAMINATION: General: Ms. Singh is an overweight, young white female. She is on nasal cannula O2 with mild shortness of breath. She is awake and cooperative. Cardiovascular: Her heart has a regular rate. Lungs: She has decreased breath sounds, left side of her thorax, when compared to the right. Abdomen: Soft, nontender, without palpable mass. No costovertebral tenderness. Rectal: Examination was not performed. Extremities: She does have palpable femoral pulses. She has mild peripheral edema. Neurological: She has no focal deficits. DIAGNOSTIC DATA: A CT scan performed 3 days ago suggested consolidation involving her left lower lobe with surrounding fluid. She also had some consolidation involving part of her right lung, but less of a pleural effusion on the right. Her white blood cell count remains in the 30s, hematocrit is 31%. Electrolytes are satisfactory. IMPRESSION: Bibasilar pneumonia with a left pleural effusion. It must be noted that she underwent ultrasound of the left chest on 07/28/[address] Hou, our radiologist, and thoracentesis was aborted because he felt there was a small amount of fluid. We will plan to take her to surgery tomorrow for left-sided thoracentesis versus left chest tube. cc: MD Jordan Bains MD
[2018-07-30 05:17] LABS: BASO# 0.05 X1000 (0.0-0.2); BASO% 0.2 % (0.0-0.8); EOS# 0.26 X1000 (0.0-0.7); EOS% 0.9 % (0.0-10.0); HEMATOCRIT 30.7 % (37.0-47.0); HEMOGLOBIN 9.2 g/dL (12.0-16.0); IMM GRAN# 0.81 X1000 (0.0-0.04); IMM GRAN% 2.9 % (0.0-0.5); LYMPH# 2.91 X1000 (1.2-3.4); LYMPH% 10.6 % (20.5-51.1); MCH 22.4 PG (27-31); MCV 74.7 FL (81-99); MONO# 2.17 X1000 (0.11-0.59); MONO% 7.9 % (1.7-9.3); NEUT# 21.32 X1000 (1.4-6.5); NEUT% 77.5 % (42.2-75.2); PLT 736 X1000 (130-400); RBC 4.11 XMIL (4.2-5.4); RDW 17.5 % (11.5-14.5); WBC 27.52 X1000 (4.8-10.8)
[2018-07-30 05:29] LABS: AGAP 10; BUN 9 mg/dL (8-22); CALCIUM 7.7 mg/dL (8.8-10.2); CHLORIDE 86 mmol/L (98-107); COSMO 261; CREATININE 0.4 mg/dL (0.5-0.9); ESTIMATED GFR > 60; GLUCOSE 118 mg/dL (70-104); MAGNESIUM 2.2 mg/dL (1.5-2.7); POTASSIUM 3.5 mmol/L (3.5-5.1); SODIUM 130 mmol/L (136-145); TCO2 34 mmol/L (25-35)
[2018-07-30 05:52] LABS: ALLEN TEST YES; BE 13.5 mmoll (-3.0-3.0); BLOOD TYPE ARTERIAL; HCO3-(ACT) 35.4 mmoll (20.0-26.0); METHB 0.6 % (0.0-1.5); O2(CT) 12.5 mL/dL (15.0-23.0); PO2(98.6) 62 mmHg (60-100); SAMPLE BLOOD; SAO2 92.3 % (95.0-100.0); THB 9.7 g/dL (11.5-17.4); pH(98.6) 7.43 (7.35-7.45)
[2018-07-30 05:54] LABS: MODALITY CANNULA
[2018-07-30 05:55] LABS: PCO2(98.6) 60 mmHg (35-45)
[2018-07-30 06:41] LABS: ANISOCYTOSIS 1+; BANDS 2 % (0-1); LYMPHS 9 % (21-51); MONO 10 % (1-9); SEGS 79 % (42-75)
[2018-07-30] MEDS: MUCOMYST 20% INH SCH ×3 (07:45→21:41)
[2018-07-30] MEDS ORDERED: XYLOCAINE 1%/EPI 1:100,000 ONE (07:46)
[2018-07-30] MEDS ORDERED: ROBINUL ONE ×2 (07:51→07:52)
[2018-07-30] MEDS ORDERED: QUELICIN (DOSE) ONE (07:55)
[2018-07-30] MEDS ORDERED: VERSED ONE (07:57)
--- NOTE | 2018-07-30 08:26 | Diag Imaging Result Doc PS360 ---
EXAM: CHEST-1 VIEW INDICATION: SOB TECHNIQUE: One view COMPARISON: 07/29/2018 FINDINGS: The large left pleural effusion is stable to marginally larger. There is subtotal opacification of the left hemithorax with a small portion of aerated lung in the left suprahilar region. There is a smaller pleural fluid collection with associated atelectasis on the right that is essentially stable. No other new consolidations are identified. Cardiac silhouette is stable. IMPRESSION: Likely slight worsening of the large left pleural effusion. Essentially stable chest, otherwise. Electronically signed by Edmond Petit 07/30/2018 8:24 AM
--- NOTE | 2018-07-30 09:47 | Diag Imaging Result Doc PS360 ---
EXAM: CHEST-PORTABLE INDICATION: post Thoracentesis TECHNIQUE: One view COMPARISON: 07/30/2018 FINDINGS: There is no definite pneumothorax status post left thoracentesis. The large left pleural effusion has decreased in size during the interval. However, there is still a substantial amount of pleural fluid that is mainly near the left lung apex suggesting the fluid is at least partially loculated. There is better aeration of the left lung. Pulmonary edema is essentially stable given differences in positioning. Otherwise, the chest is unchanged. IMPRESSION: No evidence of pneumothorax status post left thoracentesis as described. Electronically signed by Edmond Petit 07/30/2018 9:44 AM
[2018-07-30] MEDS: LYRICA PO SCH (10:04)
[2018-07-30] MEDS: VANCOMYCIN 2,000 MG in NS 500 ML IV SCH ×2 (10:04→23:31)
[2018-07-30] MEDS: SUBOXONE 8 MG/2 MG FILM SL SCH ×2 (10:16→23:31)
[2018-07-30] MEDS: LASIX IV SCH (10:59)
[2018-07-30 11:18] LABS: GLUCOSE BODY FLUID 52 mg/dL
[2018-07-30 11:19] LABS: TOTAL PROT BODY FLUID 4.5 g/dL
[2018-07-30 11:28] LABS: LDH BODY FLUID 1421 U/L
[2018-07-30 11:29] LABS: PH BODY FLUID 7.5; SPECIMEN PLEURAL FLUID
[2018-07-30 11:56] LABS: BODY FLUID SOURCE PLEURAL FLUID; WBC BF 1721 /cumm
[2018-07-30 11:57] LABS: MONOS 2 %; POLYS 98 %
--- NOTE | 2018-07-30 13:40 | OPERATIVE NOTE ---
PROCEDURE DATE : 07/30/2018 PREOPERATIVE DIAGNOSES: 1. Bibasilar pneumonia. 2. Moderate-sized left pleural effusion. POSTOPERATIVE DIAGNOSES: 1. Bibasilar pneumonia. 2. Moderate-sized left pleural effusion. PRINCIPAL PROCEDURE: Thoracentesis, left chest. SURGEON: Mavis Wright MD ANESTHESIA: IV sedation with a local anesthetic. ESTIMATED BLOOD LOSS: Less than 10 mL. DRAINS: None. INDICATIONS: Ms. Ruthie Singh is a 37-year-old morbidly obese white female who presented to our Emergency Department several days ago with chest pain and shortness of breath. A plain chest x-ray and also a CT scan of her chest suggested significant bibasilar pneumonia and pleural effusions, left larger than right. She was initially hospitalized at [facility] and then sent to [facility] for further evaluation and treatment. We were asked to see her because of her left pleural effusion. FINDINGS: We removed about 600 mL of fluid from the left chest using thoracentesis. This fluid was yellow and thin and did not appear to be infected or represent purulence or an empyema. It appears that it was parapneumonic fluid. We did send the fluid for studies. DESCRIPTION OF PROCEDURE: The patient was brought to the operating room, and the reason we used the operating room was that she was on high levels of O2 and she was morbidly obese and we felt it was safer to perform this procedure in the operating room. She was placed in a sitting position on the operating room table with our nurses around her to support her. She did receive some IV sedation. We prepped and draped her posterior thorax on the left side and at the level of the tip of the scapula and medial to it after a local anesthetic I made a small anthony in the skin with an 11 blade scalpel and then we introduced the needle and thoracentesis catheter into the left chest. We removed clear, thin, yellow fluid that did not appear to be infected or represent purulence or empyema. However, we only removed 600 mL and it was sent for studies. The catheter was removed. A Band-Aid was placed at our procedure site. The patient tolerated the procedure well and she went to the recovery room where we will obtain an upright portable chest x-ray and then plan for her to return to CICU where her treatment for pneumonia will continue. We decided against a left chest tube because of the way the fluid appeared when we removed it knowing that the chest tube would cause splinting and maybe decreased pulmonary toilet. cc: MD Jordan Bains MD
--- NOTE | 2018-07-30 15:34 | PROGRESS NOTE ---
DATE: 07/30/2018 SUBJECTIVE: The patient has no focal complaints. She is seen postop. I think she went downstairs this morning for a thoracentesis. She still seems very sedated, but no major complaints. OBJECTIVE: Vital Signs: Blood pressure is 133/72, heart rate 114, respiratory rate 18, temperature 98.2, 93% on 50%. Cardiovascular: Tachy. Pulmonary: Diminished throughout, with bronchial breath sounds at left and right base. Gastrointestinal: Soft, nontender, nondistended. Bowel sounds are positive. LABORATORY DATA: White count 27, hemoglobin and hematocrit 9 and 30, platelets 736,000. pH 7.43, pCO2 60, PaO2 62. Sodium 130. Her strep antigen, though, is positive. Dr. Antonio ordered that, which would suggest that this is possibly a strep pneumonia. We will see what the culture shows. PROBLEM LIST: 1. Multilobar pneumonia with hypoxic respiratory failure and loculated pleural effusion. We will continue empiric antibiotics. She is on cefepime, vancomycin and Infectious Disease is following. Clinically, I think she is doing a little bit better although she is still not ready for discharge and still at risk for decompensation. 2. Loculated pleural effusion. Dr. Wright did a thoracentesis today in the OR. The fluid was parapneumonic, but was not felt to be an empyema. The data is not completely consistent with empyema. Glucose was low, pH was high, though. White blood cells were 1700 with 98% segs. Her LDH is 1421, so very exudative. In any case, but still not quite an empyema. She still has a loculated portion in her left upper lobe. I am not sure if that may need to be, she still may need to have decortication, but I defer to Dr. Bains and Dr. Wright on that. Currently, again, she is on antibiotics, vancomycin and cefepime. 3. Anemia. We will continue folate and iron supplementation. 4. Chronic pain disorder. She is on Suboxone. 5. Hypokalemia that has resolved. 6. Disposition: She is still at risk for decompensation. We will continue to monitor her in the Step-Down until things stabilize a little bit more. She is stable currently on OptiFlow. cc: Jordan Escobar MD
[2018-07-30] MEDS: FOLIC ACID 1 MG in NS 50 ML IV SCH (16:06)
[2018-07-30 18:29] LABS: HIV ANTIBODY SCREEN SEE COMMENTS
[2018-07-31] MEDS: PROTONIX IV SCH ×2 (01:18→22:34)
[2018-07-31] MEDS: MAXIPIME 2 GM in NS 100 ML IV SCH (01:18)
[2018-07-31] MEDS: LASIX IV SCH ×3 (01:18→22:34)
[2018-07-31] MEDS: DUONEB (A & A) INH SCH ×6 (02:56→23:42)
[2018-07-31 05:40] LABS: ALLEN TEST YES; BE 15.6 mmoll (-3.0-3.0); BLOOD TYPE ARTERIAL; METHB 0.7 % (0.0-1.5); O2(CT) 12.2 mL/dL (15.0-23.0); O2HB 92.8 % (95.0-99.0); PO2(98.6) 70 mmHg (60-100); SAMPLE BLOOD; SAO2 94.2 % (95.0-100.0); THB 9.3 g/dL (11.5-17.4)
[2018-07-31 05:46] LABS: MODALITY CANNULA; PCO2(98.6) 69 mmHg (35-45)
[2018-07-31 05:56] LABS: BASO# 0.04 X1000 (0.0-0.2); BASO% 0.2 % (0.0-0.8); EOS# 0.37 X1000 (0.0-0.7); EOS% 1.6 % (0.0-10.0); HEMOGLOBIN 9.4 g/dL (12.0-16.0); IMM GRAN# 0.37 X1000 (0.0-0.04); IMM GRAN% 1.6 % (0.0-0.5); LYMPH# 2.81 X1000 (1.2-3.4); LYMPH% 12.5 % (20.5-51.1); MCH 22.6 PG (27-31); MCHC 29.4 g/dL (33-37); MCV 76.9 FL (81-99); MONO# 1.83 X1000 (0.11-0.59); MONO% 8.1 % (1.7-9.3); MPV 10.7 FL (7.4-10.4); NEUT# 17.15 X1000 (1.4-6.5); PLT 773 X1000 (130-400); RBC 4.16 XMIL (4.2-5.4); RDW 18.2 % (11.5-14.5); WBC 22.57 X1000 (4.8-10.8)
[2018-07-31] MEDS: LOVENOX SUBQ SCH (06:11)
[2018-07-31 06:36] LABS: AGAP 8; BUN 7 mg/dL (8-22); CALCIUM 7.9 mg/dL (8.8-10.2); CHLORIDE 86 mmol/L (98-107); COSMO 264; CREATININE 0.5 mg/dL (0.5-0.9); ESTIMATED GFR > 60; GLUCOSE 130 mg/dL (70-104); POTASSIUM 4.1 mmol/L (3.5-5.1); SODIUM 132 mmol/L (136-145); TCO2 38 mmol/L (25-35)
[2018-07-31 07:14] LABS: EOS 2 % (1-10); LYMPHS 13 % (21-51); MONO 9 % (1-9); SEGS 76 % (42-75)
[2018-07-31] MEDS: VANCOMYCIN 2,000 MG in NS 500 ML IV SCH (08:16)
[2018-07-31] MEDS: LYRICA PO SCH (08:16)
[2018-07-31] MEDS: SUBOXONE 8 MG/2 MG FILM SL SCH ×2 (08:16→22:33)
--- NOTE | 2018-07-31 08:18 | Diag Imaging Result Doc PS360 ---
EXAM: CHEST-1 VIEW INDICATION: SOB TECHNIQUE: One view COMPARISON: 07/30/2018 FINDINGS: The large loculated left pleural fluid collection is essentially stable. There is a questionable small amount of pleural gas at the left midlung zone. The small aerated portion of the left lung as well as the right lung exhibits stable infiltrate. No new consolidation is identified. Cardiac silhouette is stable. IMPRESSION: Questionable development of a small amount of loculated pleural gas at the left midlung zone. Stable chest, otherwise. Electronically signed by Edmond Petit 07/31/2018 8:16 AM
[2018-07-31] MEDS: MUCOMYST 20% INH SCH ×3 (08:30→19:00)
--- NOTE | 2018-07-31 10:16 | INFECTIOUS DISEASE PROGRESS NO ---
DATE: 07/31/2018 PRESENT ILLNESS: The patient has pneumococcal pneumonia with a parapneumonic effusion. MEDICATIONS: The patient currently is receiving vancomycin and cefepime. PHYSICAL EXAMINATION: Vital Signs: Temperature is 98.1 degrees, pulse 115, respirations 22, blood pressure 135/77. General: This is a morbidly obese young female. She is in no acute distress. Head/eyes/ears/nose/throat: She can hear my spoken words and see near objects. She does not have any white patches on her tongue. Neck: No meningismus. Thorax: No increased AP diameter. Lungs: There were bilateral rales. Cardiovascular: Heart rate is regular. Abdomen: Soft and nontender. Neurologic: The patient is awake. She can move her extremities. There is no tremor. Integument: No rash noted. LABORATORY AND X-RAY: The patient's Streptococcus pneumonia antigen was positive, HIV serology was nonreactive. Her immunoglobulin levels were normal. The patient had a thoracentesis. The pleural fluid had a white count of 1720, of which 98% were polymorphonuclear organisms. So far, blood and urine cultures are negative. Pleural fluid culture is pending. Chest x-ray shows bilateral infiltrates and questionable small amount of pleural gas. ASSESSMENT AND PLAN: 1. The patient has pneumococcal pneumonia with an associated parapneumonic effusion. I have discontinued cefepime and vancomycin and have ordered Rocephin 2 g IV every 12 hours. I have also asked for daily CBCs to make sure that the white count continues to fall. 2. Comorbidities: The only comorbidity that I can see in this patient is that she is obese. cc: MD Jordan Brown MD
[2018-07-31] MEDS: ROCEPHIN 2 GM in NS 50 ML IV SCH ×2 (10:41→22:33)
--- NOTE | 2018-07-31 10:55 | PROGRESS NOTE ---
DATE: 07/31/2018 SUBJECTIVE: Ms. Singh underwent a left thoracentesis yesterday. The fluid was thin, yellow. It did not appear to be purulent, so a left chest tube was not placed. Studies of the fluid showed white blood cells but no bacteria within the fluid at this point. She continues to appear to improve clinically with IV antibiotics and pulmonary toilet. OBJECTIVE: She is on nasal cannula O2. Her heart rate is 115, blood pressure 135/77, O2 saturation 97%. LABORATORY: Her white blood cell count has been decreasing steadily. It was 27, now 22. Hematocrit is stable at 32%. Electrolytes are within normal limits. BUN and creatinine 7 and 0.5. Her gas shows some CO2 retention. She is morbidly obese. Chest x-ray is essentially stable. PLAN: Continue medical management of bilateral pneumonia with antibiotics and maximum pulmonary physiotherapy. cc: MD Jordan Bains MD
[2018-07-31] MEDS: FOLIC ACID 1 MG in NS 50 ML IV SCH (15:59)
--- NOTE | 2018-07-31 17:57 | PROGRESS NOTE ---
DATE: 07/31/2018 SUBJECTIVE: Patient has no major complaints. She is still fairly short of breath. She is still very confused. OBJECTIVE: Blood pressure is 141/86, heart rate of 112, respiratory rate 10, temperature 99.7 degrees.Cardiovascular: Regular rate and rhythm. Pulmonary: Bilateral breath sounds. Clear to auscultation. GI: Was soft, nontender, nondistended. Bowel sounds are positive. Extremity: No clubbing or cyanosis. Lymph: No peripheral edema. Neurologic: Nonfocal. LABORATORY DATA: White count is 22,000 which is much improved over 27 down from 34 and a peak of 38, hemoglobin and hematocrit is 9 and 32, platelets 773,000, pH 7.4, pCO2 69, PaO2 of 70 and that was on 50%, sodium is 132. PROBLEM LIST: 1. A multilobar pneumonia with hypoxic respiratory failure, parapneumonic effusion. She is on empiric antibiotics. Her strep antigen was positive and Dr. Antonio had switched her over to plain Rocephin and hopefully this will take care of the issue. Her white count is continuing to improve. 2. Loculated pleural effusion. We will continue to follow, data not consistent with empyema but it is definitely exudative, Dr. Bains is repeating chest CT tomorrow and anticipates more instrumentation may be done but this will need to be discussed between Dr. Wright and Dr. Bains. 3. Hypoxic hypercapnic respiratory failure he is on Optiflow. I am going to try BiPAP at night just and see the PEEP will help. DISPOSITION: Pending her status for now I think she needs to be in the step-down. We will continue to follow closely. cc: Jordan Escobar MD
[2018-08-01] MEDS: PROTONIX IV SCH ×2 (00:26→22:59)
[2018-08-01] MEDS: DUONEB (A & A) INH SCH ×6 (03:16→23:46)
[2018-08-01] MEDS: LOVENOX SUBQ SCH (05:12)
[2018-08-01] MEDS: TYLENOL PO PRN (05:12)
[2018-08-01 05:26] LABS: ALLEN TEST YES; BE 17.2 mmoll (-3.0-3.0); BLOOD TYPE ARTERIAL; HCO3-(ACT) 38.3 mmoll (20.0-26.0); METHB 0.5 % (0.0-1.5); O2HB 96.3 % (95.0-99.0); PO2(98.6) 106 mmHg (60-100); SAMPLE BLOOD; SAO2 97.7 % (95.0-100.0); THB 9.5 g/dL (11.5-17.4); pH(98.6) 7.41 (7.35-7.45)
[2018-08-01 05:31] LABS: PCO2(98.6) 70 mmHg (35-45)
[2018-08-01 05:33] LABS: MODALITY BI PAP
[2018-08-01 05:40] LABS: BASO# 0.07 X1000 (0.0-0.2); BASO% 0.3 % (0.0-0.8); EOS# 0.18 X1000 (0.0-0.7); EOS% 0.7 % (0.0-10.0); HEMATOCRIT 32.1 % (37.0-47.0); HEMOGLOBIN 9.3 g/dL (12.0-16.0); IMM GRAN# 0.27 X1000 (0.0-0.04); IMM GRAN% 1.1 % (0.0-0.5); LYMPH# 2.39 X1000 (1.2-3.4); LYMPH% 9.8 % (20.5-51.1); MCH 22.5 PG (27-31); MCV 77.7 FL (81-99); MONO# 2.07 X1000 (0.11-0.59); MONO% 8.5 % (1.7-9.3); MPV 10.5 FL (7.4-10.4); NEUT# 19.39 X1000 (1.4-6.5); NEUT% 79.6 % (42.2-75.2); PLT 858 X1000 (130-400); RBC 4.13 XMIL (4.2-5.4); RDW 18.5 % (11.5-14.5); WBC 24.37 X1000 (4.8-10.8)
[2018-08-01 05:54] LABS: ESTIMATED GFR > 60
[2018-08-01 06:01] LABS: AGAP 8; BUN 7 mg/dL (8-22); CALCIUM 8.4 mg/dL (8.8-10.2); CHLORIDE 82 mmol/L (98-107); COSMO 261; CREATININE 0.5 mg/dL (0.5-0.9); GLUCOSE 137 mg/dL (70-104); POTASSIUM 4.4 mmol/L (3.5-5.1); SODIUM 130 mmol/L (136-145); TCO2 40 mmol/L (25-35)
[2018-08-01] MEDS ORDERED: VANCOMYCIN IV PER PHARMACY MISC SCH (06:30)
--- NOTE | 2018-08-01 06:47 | INFECTIOUS DISEASE PROGRESS NO ---
DATE: 08/01/2018 PRESENT ILLNESS: The patient has pneumococcal pneumonia with a parapneumonic effusion. The cultures of the effusion have been negative. Thus, I doubt the patient has an empyema. MEDICATIONS: The patient is receiving Rocephin as a single agent. PHYSICAL EXAMINATION: Vital Signs: Temperature maximum was 100.2 and now it is 99.3, pulse 108, respirations 10, blood pressure 144/78. General: This is a morbidly obese, young female. She is in no acute distress. Head, Eyes, Ears, Nose, and Throat: She can hear my spoken words and see near objects. She does not have any white coating on her tongue. She is wearing a BiPAP mask. Neck: No meningismus. Thorax: No increased AP diameter of the chest. Lungs: Clear to auscultation. Cardiovascular: Heart rate is regular. Abdomen: Soft and nontender. Neurologic: The patient is alert. She can move her extremities. There is no tremor. LAB AND X-RAY: The patient's most recent x-ray was done yesterday. It shows questionable development of a small loculated pleural gas at the left mid lung zone. The patient's CBC shows that the white count has increased to 24,370, hemoglobin 9.3, platelet count 858,000. Gases show a pH of 7.41, a PO2 of 106, a pCO2 of 70. The creatinine is 0.5. GFR is greater than 60. Blood, urine, and pleural effusion cultures are negative. ASSESSMENT AND PLAN: The patient has pneumococcal pneumonia with an associated parapneumonic effusion. My plan is to continue Rocephin and add back vancomycin in case the patient's organism has a slight resistance to Rocephin. As mentioned above, the patient's white count did increase since yesterday and that is the main reason I added back vancomycin. COMORBIDITIES: The patient is obese. cc: MD Jordan Brown MD
--- NOTE | 2018-08-01 07:06 | Diag Imaging Result Doc PS360 ---
EXAM: CHEST-1 VIEW 08/01/2018 HISTORY: SOB TECHNIQUE: AP portable at 0550 COMMENT: The lungs are slightly better expanded particularly the left upper lobe than on the previous study of 07/31/2018. There is still considerable atelectasis on the left with apparent loculated hydropneumothorax laterally. There is generalized interstitial pulmonary edema and some pleural fluid is also present on the right particularly in the minor fissure and right lateral costophrenic sulcus. IMPRESSION: Pulmonary edema. Loculated hydropneumothorax on the left with atelectatic changes. Electronically signed by See Benites 08/01/2018 7:04 AM
[2018-08-01] MEDS: MUCOMYST 20% INH SCH ×3 (07:08→19:42)
--- NOTE | 2018-08-01 08:33 | Diag Imaging Result Doc PS360 ---
CT THORAX W/O CONTRAST - 08/01/2018 INDICATION: SOB COMPARISON: 07/26/2018 FINDINGS: There has been development of several air-fluid levels in the large left pleural effusion. There are probably multiple loculations. There has been worsening in the right pleural effusion which is now moderate in size. Stable extensive consolidation of the right lower lobe. Stable infiltrate throughout the left upper lobe and complete consolidation of the left lower lobe. Heart size remains stable. Bones are intact. IMPRESSION: 1. Development of several air-fluid levels in the large multiloculated left pleural effusion. This is suggestive of infection or bronchopleural fistula. 2. Worsening right pleural effusion. 3. Extensive bilateral pneumonia. This exam was performed using automated exposure control, adjustment of mA or kV according to patient size, and/or use of iterative reconstruction technique Electronically signed by Raymond Schmidt 08/01/2018 8:30 AM
[2018-08-01] MEDS: VANCOMYCIN 2,000 MG in NS 500 ML IV SCH ×2 (10:39→20:12)
[2018-08-01] MEDS: LYRICA PO SCH (10:39)
[2018-08-01] MEDS: SUBOXONE 8 MG/2 MG FILM SL SCH (10:39)
[2018-08-01] MEDS: ROCEPHIN 2 GM in NS 50 ML IV SCH ×2 (11:46→23:27)
[2018-08-01] MEDS: LASIX IV SCH ×2 (11:46→22:59)
[2018-08-01] MEDS: FOLIC ACID 1 MG in NS 50 ML IV SCH (15:55)
[2018-08-01] MEDS: BUPRENEX IV PRN (17:54)
--- NOTE | 2018-08-01 18:41 | PROGRESS NOTE ---
DATE: 08/01/2018 SUBJECTIVE: Patient is resting on bed. Not in any obvious distress. OBJECTIVE: Vital signs: Temperature 99.7, pulse 121, respiratory 19, blood pressure is 133/86, oxygen saturation is 97%. HEENT: She is atraumatic, normocephalic. She is on high-flow oxygen. Cardiovascular: S1, S2. Tachycardic. Respiratory: No rales or rhonchi noted. Abdomen: Soft, nontender. No masses felt. Extremities: No evidence of edema. Central nervous system: No obvious focal deficits noted. LABS: WBCs 24.37, platelet count of 858,000. ABG 7.41/70/106/97.7. Chemistry sodium is 130, potassium is 4.4, chloride is 82, BUN is 7, creatinine 0.5. CT scan of the chest shows evidence of a development of several air-fluid levels with large multiloculated left pleural effusion. There is also worsening right pleural effusion and also extensive bilateral pneumonia. ASSESSMENT AND PLAN: 1. Acute respiratory failure secondary to extensive bilateral pneumonia as well as bilateral pleural effusion. Patient does have a large loculated left pleural effusion. Will maintain patient on oxygen , follow up on her chest x-ray as well as arterial blood gases. 2. Multilevel pneumonia secondary to pneumococcal infection. Antibiotic management per Infectious Disease Team. 3. Loculated left pleural effusion, patient has been followed by the surgical as well as the pulmonary teams. 4. Anemia, follow up on hemoglobin, hematocrit, transfuse PRBCs as needed. 5. Deep vein thrombosis prophylaxis Lovenox. 6. Gastrointestinal prophylaxis PPI. cc: MD Jordan Rosario MD MTDD
[2018-08-01] MEDS: SUBOXONE 8 MG/2 MG SL SCH (20:12)
[2018-08-01] MEDS ORDERED: BENADRYL PO PRN (21:29)
[2018-08-01] MEDS: SODIUM CHLORIDE 0.9% INJ SCH (22:59)
[2018-08-02] MEDS: DUONEB (A & A) INH SCH ×6 (03:35→23:22)
[2018-08-02 05:17] LABS: BE 20.3 mmoll (-3.0-3.0); BLOOD TYPE ARTERIAL; HCO3-(ACT) 40.7 mmoll (20.0-26.0); O2(CT) 12.7 mL/dL (15.0-23.0); O2HB 95.2 % (95.0-99.0); PO2(98.6) 91 mmHg (60-100); SAMPLE BLOOD; SAO2 98.8 % (95.0-100.0); THB 9.4 g/dL (11.5-17.4); pH(98.6) 7.46 (7.35-7.45)
[2018-08-02 05:25] LABS: MODALITY BI PAP; PCO2(98.6) 66 mmHg (35-45)
[2018-08-02 05:45] LABS: BASO# 0.09 X1000 (0.0-0.2); BASO% 0.6 % (0.0-0.8); EOS# 0.27 X1000 (0.0-0.7); EOS% 1.7 % (0.0-10.0); HEMATOCRIT 30.1 % (37.0-47.0); HEMOGLOBIN 8.8 g/dL (12.0-16.0); LYMPH# 2.48 X1000 (1.2-3.4); LYMPH% 15.4 % (20.5-51.1); MCHC 29.2 g/dL (33-37); MCV 78.6 FL (81-99); MONO# 1.69 X1000 (0.11-0.59); MONO% 10.5 % (1.7-9.3); MPV 11.3 FL (7.4-10.4); NEUT# 11.54 X1000 (1.4-6.5); NEUT% 71.8 % (42.2-75.2); PLT 837 X1000 (130-400); RBC 3.83 XMIL (4.2-5.4); RDW 19.3 % (11.5-14.5); WBC 16.07 X1000 (4.8-10.8)
[2018-08-02] MEDS: LOVENOX SUBQ SCH (06:01)
--- NOTE | 2018-08-02 06:40 | Diag Imaging Result Doc PS360 ---
EXAM: CHEST-1 VIEW HISTORY: SOB TECHNIQUE: Portable chest single view COMPARISON: 08/01/2018 FINDINGS: No change in the left pleural effusion or pleural thickening. Slightly improved aerated lung in the left hemithorax. Mild vascular distention is present. No cardiomegaly. There may be a small right pleural effusion. IMPRESSION: Slight interval improvement Electronically signed by Emile Hou 08/02/2018 6:38 AM
[2018-08-02] MEDS: MUCOMYST 20% INH SCH ×3 (08:02→19:22)
[2018-08-02] MEDS: SUBOXONE 8 MG/2 MG SL SCH ×2 (08:49→19:59)
[2018-08-02] MEDS: VANCOMYCIN 2,000 MG in NS 500 ML IV SCH ×2 (08:49→19:59)
[2018-08-02] MEDS: LYRICA PO SCH (10:18)
[2018-08-02] MEDS: LASIX IV SCH ×2 (10:18→23:25)
--- NOTE | 2018-08-02 10:57 | INFECTIOUS DISEASE PROGRESS NO ---
DATE: 08/02/2018 SUBJECTIVE: The patient has pneumococcal pneumonia with a parapneumonic effusion. Specifically, she has a multi-loculated left pleural effusion and worsening right pleural effusion. MEDICATIONS: The patient is on a combination of Rocephin and vancomycin. OBJECTIVE: Vital Signs: Temperature is 100 degrees, pulse 113, respirations 15 , blood pressure 123/76. General: This is a morbidly obese, young female. She is in no acute distress. Head/eyes/ears/nose/throat: She can hear my spoken words and see near objects. She does not have any white patches on her tongue. She is not wearing a BiPAP mask now. Neck: No meningismus. Thorax: No increased AP diameter of the chest. Lungs: Clear to auscultation. Cardiovascular: Heart rate is regular. Abdomen: Soft and nontender. LAB AND X-RAY: CT scan of the chest shows bilateral pneumonia, multi-loculated left pleural effusion, worsening right pleural effusion. The patient's CBC shows a white count that is down to 16,070, hemoglobin 8.8, and platelet count 837,000. Blood gases show a pH of 7.46, a pO2 of 91, and pCO2 of 66. ASSESSMENT AND PLAN: The patient has pneumococcal pneumonia with an associated multiloculated left pleural effusion and worsening right pleural effusion. My plan is to continue Rocephin and vancomycin for the patient's pneumococcal pneumonia and associated parapneumonic effusion. The white count is coming down, which is encouraging. However, there still is bilateral infiltrates on the chest x-ray as well as bilateral effusions. COMORBIDITY: Obesity. cc: Carloz Antonio MD MTDD
--- NOTE | 2018-08-02 12:06 | PROGRESS NOTE ---
DATE: 08/02/2018 SUBJECTIVE: She is in the CU now. She is sitting up. She looks like she has got a little bit more color, but she is still breathing rapidly. She is still very tachycardic. She is overall very ill. OBJECTIVE: Blood pressure is 123/73, heart rate of 113, respiratory rate of 15, and temperature was 99.3 degrees.Cardiovascular: She is tachy. Pulmonary: Diffuse rhonchi, wheezes or rales. GI: Soft, nontender, and nondistended. Bowel sounds are positive. LABORATORY DATA: White count is down to 16, hemoglobin and hematocrit 8.8 and 30, and platelets of 837,000. The pH 7.46, pCO2 66, PaO2 91. I do not have any electrolytes today although she is slowly developing a metabolic alkalosis. PROBLEM LIST: 1. Acute respiratory failure due to extensive bilateral pneumonia and loculated effusion. She is still very ill overall. X-ray looks a little bit improved, though, and her white count is coming down. We do have an organism in the sense of strep urine antigen was positive. However, she still has extensive now multiloculated effusions with air-fluid levels with concern over developing a pulmonary abscess possibly. Surgery is following. Pulmonary is following. ID is following. We will continue care. 2. Multi lobar pneumonia, streptococcal. We will continue antibiotics. She was on Rocephin alone, and then she has been put back on vancomycin due to possible resistance. 3. Loculated pleural effusion. Anticipate possibility of VATS, but that will be per Dr. Wright. He will re-evaluate. 4. Anemia. Hemoglobin and hematocrit is overall stable. Continue to follow. She is on folate, and I think she was some degree iron deficient. We will put her on some iron as well. 5. Chronic pain syndrome. We will continue to monitor closely. DISPOSITION: Pending her clinical status, she has a long road to recovery before we are looking at any per se improvement so we will continue to follow closely. cc: Jordan Escobar MD
[2018-08-02] MEDS: ROCEPHIN 2 GM in NS 50 ML IV SCH ×2 (12:20→23:25)
[2018-08-02] MEDS: BUPRENEX IV PRN ×2 (12:26→22:36)
[2018-08-02] MEDS: ICAR-C PO SCH ×2 (12:26→20:00)
[2018-08-02] MEDS: TYLENOL PO PRN (15:07)
[2018-08-02 15:45] LABS: ALLEN TEST YES
[2018-08-02] MEDS: FOLIC ACID 1 MG in NS 50 ML IV SCH (16:36)
--- NOTE | 2018-08-02 19:15 | PROGRESS NOTE ---
DATE: 08/02/2018 PROGRESS NOTE: Ms. Singh is a 37-year-old morbidly obese white female who was hospitalized with bibasilar pneumonia. She is being treated with IV antibiotics and clinically I feel has improved over the last several days. However, she had to be transferred to the ICU and continues to need BiPAP and maximum pulmonary physiotherapy. I have done a left-sided thoracentesis and the fluid was thin and not infected. She still has an abnormal chest x-ray with some loculated fluid left chest and I may have introduced that air when I did the thoracentesis. She also has fluid involving her right chest. Her chest x-ray suggests more aeration of the left lung. Her white blood cell count is decreasing on multiple IV antibiotics and it was 16 today. Her hematocrit is 30%. I feel that she is not a candidate for VATS because of her weight and I do not think the trocars would go through her soft tissue and into her left chest. I think even a left-sided chest tube would be difficult and certainly would have increased risk of introducing infection into the left chest. Certainly, I want to avoid any left thoracotomy. I would try to use CT-guided pigtail catheter for any fluid drainage left chest per Radiology if needed. Clinically, she seems to be breathing better. Her chest x-ray I feel has improved and her white blood cell count is decreasing, and I would like to continue treating her with antibiotics and maximum pulmonary physiotherapy for now. I had a long discussion with her mother who is working out of town, but happens to be a cardiovascular nurse. cc: Mavis Wright MD
[2018-08-02] MEDS: PROTONIX IV SCH (23:25)
[2018-08-02] MEDS: SODIUM CHLORIDE 0.9% INJ SCH (23:25)
[2018-08-03] MEDS: DUONEB (A & A) INH SCH ×6 (03:23→23:55)
[2018-08-03 04:57] LABS: BASO# 0.07 X1000 (0.0-0.2); BASO% 0.5 % (0.0-0.8); EOS# 0.19 X1000 (0.0-0.7); EOS% 1.4 % (0.0-10.0); HEMATOCRIT 29.4 % (37.0-47.0); HEMOGLOBIN 8.6 g/dL (12.0-16.0); LYMPH# 2.27 X1000 (1.2-3.4); LYMPH% 16.2 % (20.5-51.1); MCH 23.1 PG (27-31); MCHC 29.3 g/dL (33-37); MCV 78.8 FL (81-99); MONO# 1.35 X1000 (0.11-0.59); MONO% 9.7 % (1.7-9.3); MPV 10.9 FL (7.4-10.4); NEUT% 72.2 % (42.2-75.2); PLT 993 X1000 (130-400); RBC 3.73 XMIL (4.2-5.4); WBC 13.98 X1000 (4.8-10.8)
[2018-08-03 04:58] LABS: ALLEN TEST YES; BE 17.9 mmoll (-3.0-3.0); BLOOD TYPE ARTERIAL; HCO3-(ACT) 38.7 mmoll (20.0-26.0); METHB 0.7 % (0.0-1.5); O2(CT) 11.3 mL/dL (15.0-23.0); PO2(98.6) 55 mmHg (60-100); SAMPLE BLOOD; SAO2 89.8 % (95.0-100.0); THB 9.1 g/dL (11.5-17.4); pH(98.6) 7.49 (7.35-7.45)
[2018-08-03 05:01] LABS: PCO2(98.6) 57 mmHg (35-45)
[2018-08-03 05:33] LABS: MODALITY CANNULA
[2018-08-03 05:54] LABS: AGAP 10; BUN 6 mg/dL (8-22); CALCIUM 7.9 mg/dL (8.8-10.2); CHLORIDE 87 mmol/L (98-107); COSMO 265; CREATININE 0.3 mg/dL (0.5-0.9); ESTIMATED GFR > 60; GLUCOSE 122 mg/dL (70-104); MAGNESIUM 1.8 mg/dL (1.5-2.7); PHOSPHORUS 2.8 mg/dL (2.7-4.5); SODIUM 133 mmol/L (136-145); TCO2 36 mmol/L (25-35)
[2018-08-03] MEDS: LOVENOX SUBQ SCH (05:56)
--- NOTE | 2018-08-03 07:41 | Diag Imaging Result Doc PS360 ---
EXAM: CHEST-1 VIEW INDICATION: SOB TECHNIQUE: One view COMPARISON: 08/02/2018 FINDINGS: Pulmonary venous congestion and interstitial edema are approximately stable. The loculated left pleural fluid and small right pleural effusion are approximately stable. No new consolidation is identified. Cardiac silhouette is stable. IMPRESSION: No evidence of acute pathology by plain radiograph. Electronically signed by Edmond Petit 08/03/2018 7:38 AM
[2018-08-03] MEDS: MUCOMYST 20% INH SCH ×3 (07:59→20:11)
[2018-08-03] MEDS: SUBOXONE 8 MG/2 MG SL SCH ×2 (08:06→20:03)
[2018-08-03] MEDS: LYRICA PO SCH (08:06)
[2018-08-03] MEDS: ICAR-C PO SCH ×2 (08:06→20:03)
[2018-08-03] MEDS: VANCOMYCIN 2,000 MG in NS 500 ML IV SCH ×2 (08:06→20:03)
--- NOTE | 2018-08-03 08:28 | PROGRESS NOTE ---
DATE: 08/03/2018 SUBJECTIVE: Ms. Singh is a morbidly obese 37-year-old female, who presented with bilateral pneumonia. She has been hospitalized since 07/25/2018, receiving IV antibiotics for her pneumonia. Clinically, I think she is improving almost daily. Her white blood cell count continues to decrease. I think her chest x-ray as far as aerating her lungs is also improved. OBJECTIVE: Vital signs: Her heart rate is 106, blood pressure 118/67, O2 saturation 93%. She is on a closed face mask O2 this morning. Her white blood cell count is 14. That has decreased from 16 yesterday. Her hematocrit is stable at 30%. Electrolytes are within normal limits with a BUN of 6 and a creatinine of 0.3. Her blood gases remain poor. She retains some CO2, and her PaO2 is 55 to 91. By x-ray, she still has fluid involving both sides of her chest. But they are stable. No new consolidation. PLAN: Her IV antibiotics continue. We need to increase her activity, and I spoke with her nurse about that today. We need to have physical therapy help us or even the lift team. Certainly, we need to increase her activity in a safe manner. We need to make her use her incentive spirometry, and encourage p.o. intake, especially her protein shakes. cc: Mavis Wright MD
[2018-08-03 10:35] LABS: O2HB 87.8 % (95.0-99.0)
[2018-08-03] MEDS: ROCEPHIN 2 GM in NS 50 ML IV SCH ×2 (10:56→23:05)
[2018-08-03] MEDS ORDERED: POTASSIUM CHLORIDE 10% LIQUID PO ONE (11:19)
[2018-08-03] MEDS: POTASSIUM CHLORIDE 20 MEQ/SWI 20 MEQ/100 ML IVPB IV SCH ×2 (11:34→13:02)
[2018-08-03] MEDS: LASIX IV SCH ×2 (11:35→23:05)
[2018-08-03] MEDS: BUPRENEX IV PRN (12:56)
[2018-08-03] MEDS: TYLENOL PO PRN ×2 (13:01→20:30)
[2018-08-03] MEDS: FOLIC ACID 1 MG in NS 50 ML IV SCH (16:07)
--- NOTE | 2018-08-03 19:50 | PROGRESS NOTE ---
DATE: 08/03/2018 INTERVAL HISTORY: The patient still with very high oxygen requirements. Leukocytosis significantly improved. X-ray possibly slightly improved. No acute events overnight. Afebrile. No new complaints. REVIEW OF SYSTEMS: Twelve point review of systems negative except as interval history. LABS: White count 13.9, hemoglobin 8.6, hematocrit 29.4, platelets 993,000. ABG with pH 7.49, pCO2 of 57, PO2 of 55, O2 saturation 89.8 on 5 L by nasal cannula. Sodium 133, potassium 3, chloride 8.7, bicarbonate 36, BUN 6, creatinine 0.3, glucose 122, phosphorus 2.8 , magnesium 1.8. IMAGING: Chest x-ray with stable pulmonary venous congestion and interstitial edema. Still with loculated left pleural effusion and small right pleural effusion. OBJECTIVE: Vital signs: T-max 100.9 degrees yesterday afternoon, T-max 98.6 degrees today. Pulse 119, respirations 16, blood pressure 125/71, O2 saturation 93% on Venti mask. General: No acute distress. Vitals as above. HEENT; Normocephalic, atraumatic. Moist mucous membranes. Neck: No cervical adenopathy. Cardiovascular: Tachycardic but regular. No murmurs noted. Pulmonary: Diffuse rhonchi and few scattered rales, no increased work of breathing or accessory muscle use. Abdomen: Soft, nontender, nondistended. Bowel sounds positive. Extremities: Peripheral pulses intact. No clubbing or cyanosis. Neurologic: Cranial nerves II through XII grossly intact, globally weak, but no focal deficit. Psychiatric: Normal mood and affect. Awake, alert, oriented x3. Skin: No rashes or lesions noted. ASSESSMENT AND PLAN: 1. Acute hypoxic respiratory failure secondary to bilateral pneumonia and loculated effusion. Surgery performed thoracentesis on 07/30, with some slight improvement in left pleural effusion, but remains fairly significant and loculated. Surgery following. No plans for surgical intervention at this time. Continuing antibiotics with vancomycin and Rocephin. Leukocytosis is significantly improved, but little progress made on patient' s oxygen requirements. Does also appear to have chronic hypercapnic respiratory failure, likely related to Pickwickian syndrome/obesity hypoventilation. Hypercapnia somewhat improved on most recent ABG. 2. Anemia. Blood counts overall fairly stable. No signs or symptoms of active bleeding. Continue to monitor blood counts. 3. Chronic pain syndrome. Pain currently well controlled on home Suboxone and Lyrica. Continue to monitor. 4. Hypokalemia. Will replete and monitor. 5. Hyponatremia. Fairly mild and asymptomatic at this point. Will monitor and consider fluid restriction if that becomes necessary. 6. Morbid obesity: likely contributing to respiratory issues. counseled on diet and exercise. 7. Deep vein thrombosis prophylaxis. Wander. [facility]
[2018-08-03] MEDS: SODIUM CHLORIDE 0.9% INJ SCH (23:05)
[2018-08-03] MEDS: PROTONIX IV SCH (23:05)
--- NOTE | 2018-08-04 00:16 | INFECTIOUS DISEASE PROGRESS NO ---
DATE: 08/03/2018 PRESENT ILLNESS: The patient has pneumococcal pneumonia, with a parapneumonic effusion. MEDICATIONS: The patient is on a combination of Rocephin and vancomycin. This is day 3 of treatment. PHYSICAL EXAMINATION: Vital Signs: Temperature is 99 degrees, pulse 119, respirations 21, blood pressure 103/83. General: This is an obese, somewhat ill-appearing young female. She is in no acute distress. Head, Eyes, Ears, Nose, and Throat: She can hear my spoken words and see near objects. She does not have any white patches on her tongue. Neck: No stiffness. Lungs: There were diminished breath sounds bilaterally. I did not hear any rales or rubs. Cardiovascular: Heart rate is regular. Abdomen: Soft and nontender. Legs: Edematous, but not erythematous. LAB AND X-RAY: Chest x-ray shows stable congestion. CBC shows white count is down to 13,980, hemoglobin 8.6, and platelet count 993,000. Blood gases show a pH of 7.49, a PO2 of 55, a pCO2 of 57. Creatinine is 0.3. GFR is greater than 60. HIV antibody is nonreactive. Acid-fast smear from the patient's pleural fluid did not show any organisms. ASSESSMENT AND PLAN: The patient has pneumococcal pneumonia, with parapneumonic effusions. I think she overall is improving. I plan to continue with both Rocephin and vancomycin. COMORBIDITIES: Morbid obesity. cc: Carloz Antonio MD
[2018-08-04] MEDS: DUONEB (A & A) INH SCH ×6 (03:10→23:13)
[2018-08-04] MEDS: LOVENOX SUBQ SCH (05:25)
[2018-08-04 05:42] LABS: AGAP 12; BUN 6 mg/dL (8-22); CALCIUM 7.8 mg/dL (8.8-10.2); CHLORIDE 89 mmol/L (98-107); COSMO 269; CREATININE 0.4 mg/dL (0.5-0.9); ESTIMATED GFR > 60; GLUCOSE 121 mg/dL (70-104); POTASSIUM 3.5 mmol/L (3.5-5.1); SODIUM 135 mmol/L (136-145); TCO2 34 mmol/L (25-35)
[2018-08-04 05:45] LABS: ALLEN TEST YES; BE 15.6 mmoll (-3.0-3.0); BLOOD TYPE ARTERIAL; METHB 1.1 % (0.0-1.5); O2HB 92.2 % (95.0-99.0); PO2(98.6) 71 mmHg (60-100); SAMPLE BLOOD; SAO2 94.4 % (95.0-100.0); THB 9.2 g/dL (11.5-17.4); pH(98.6) 7.45 (7.35-7.45)
[2018-08-04 05:49] LABS: MODALITY BI PAP; PCO2(98.6) 60 mmHg (35-45)
--- NOTE | 2018-08-04 07:19 | INFECTIOUS DISEASE PROGRESS NO ---
DATE: 08/04/2018 PRESENT ILLNESS: The patient has pneumococcal pneumonia with parapneumonic effusions. MEDICATIONS: This is the 10th day of treatment with Rocephin and the 3rd day of treatment with vancomycin. PHYSICAL EXAMINATION: Vital Signs: Temperature is 98.6, pulse 112, respirations 14, blood pressure 124/94. Generally, this is an obese, somewhat ill-appearing, young female. She does not appear to be in acute distress. Head, eyes, ears, nose and throat: She can hear my spoken words and see near objects. She does not have any white patches on her tongue. Neck : No meningismus. Lungs: There are diminished breath sounds bilaterally, but I would say it is more on the left side than the right. Cardiovascular: Heart rate is regular. Abdomen soft and nontender. Legs are edematous but not erythematous. Neurologic: The patient is alert. She can move her extremities. There is no tremor. LABORATORY DATA AND X-RAY: CBC today shows a white count coming down to 13, 980. Hemoglobin 8.6 and platelet count 993,000. Blood gases show a pH of 7.45, a PO2 of 71, a pCO2 of 60. Creatinine is 0.4. GFR is greater than 60. Chest x-ray shows bilateral infiltrates and pleural effusions. ASSESSMENT AND PLAN: Patient has pneumococcal pneumonia and parapneumonic effusions. I plan to continue with Rocephin and vancomycin. COMORBIDITIES: Obesity. cc: MD THO Brown
--- NOTE | 2018-08-04 07:25 | Diag Imaging Result Doc PS360 ---
EXAM: CHEST-1 VIEW 08/04/2018 HISTORY: SOB TECHNIQUE: AP portable at 0549 COMMENT: Compared to 08/03/2018 the lungs are not as well-expanded but there has been some improvement in the pulmonary edema and the right base. Coarse pleural and parenchymal opacities on the left remain. IMPRESSION: Atelectasis and/or fibrosis on the left. Improved pulmonary edema. Electronically signed by See Benites 08/04/2018 7:23 AM
[2018-08-04] MEDS: MUCOMYST 20% INH SCH ×3 (08:10→19:13)
[2018-08-04] MEDS: VANCOMYCIN 2,000 MG in NS 500 ML IV SCH ×2 (09:32→20:48)
[2018-08-04] MEDS: SUBOXONE 8 MG/2 MG SL SCH ×2 (09:39→20:48)
[2018-08-04] MEDS: ICAR-C PO SCH ×2 (09:40→20:48)
[2018-08-04] MEDS: LYRICA PO SCH (09:40)
--- NOTE | 2018-08-04 10:48 | PROGRESS NOTE ---
DATE: 08/04/2018 SUBJECTIVE: Ms. Singh was moved from the ICU to CICU. Her white blood cell count continues to improve on IV antibiotics. It went from 16 to 13 over the last 24 hours. She is sitting up on the side of her bed today, trying to eat some breakfast. She looks exhausted. She still has some work of breathing but she is on nasal cannula O2 only. OBJECTIVE: Her heart rate is 115, blood pressure 113/76, O2 saturation is 98%. Her chest x-ray is about the same. PLAN: I think Dr. Bains has ordered another CT scan of the chest. We need to try to increase her activity as much as possible. Encourage p.o. intake. I do feel she is clinically. cc: Mavis Wright MD
--- NOTE | 2018-08-04 12:19 | EKG Report ---
Test Performed on : 08/04/2018 11:57:56 AM Test Reason : Increased heart rate. Blood Pressure : / mmHG Vent. Rate : 122 BPM Atrial Rate : 122 BPM P-R Int : 176 ms QRS Dur : 084 ms QT Int : 306 ms P-R-T Axes : 052 014 014 degrees QTc Int : 436 ms Sinus tachycardia. Possible Left atrial enlargement Borderline ECG When compared with ECG of 25-JUL-2018 13:16, (Unconfirmed) No significant change was found Confirmed by Samantha BATISTA, Sawyer Pierson ([id number]) on 08/04/2018 6:51:25 PM
[2018-08-04] MEDS: ROCEPHIN 2 GM in NS 50 ML IV SCH ×2 (13:12→23:45)
[2018-08-04] MEDS: LASIX IV SCH (13:12)
--- NOTE | 2018-08-04 13:38 | Diag Imaging Result Doc PS360 ---
EXAM: CT THORAX W/O CONTRAST 08/04/2018 HISTORY: SOB TECHNIQUE: This exam was performed using automated exposure control, adjustment of mA or kV according to patient size, and/or use of iterative reconstruction technique. COMMENT: There is marked atelectasis in both lung bases. This was also present at the time the previous study of 08/01/2018. There are loculated air collections present in the left pleural space which may be secondary to previous thoracentesis. This was also present at the time the previous study. There are some patchy ill-defined opacities in the anterior upper lobes bilaterally. These were present at the time the previous study. Compared to the previous examination the loculated hydropneumothorax on the left was present previously and there was apparently more fluid in this area than currently. The regional skeleton is intact. IMPRESSION: Bibasilar atelectasis and/or pneumonia. Loculated hydropneumothorax on the left similar in appearance to the previous study of 08/01/2018. Electronically signed by See Benites 08/04/2018 1:35 PM
--- NOTE | 2018-08-04 14:19 | PROGRESS NOTE ---
DATE: 08/04/2018 OVERNIGHT EVENTS: The patient had a fever episode of 101.7 on August 03. She remains tachycardic and has leukocytosis. SUBJECTIVE: I went to the bedside today twice, initially patient was down for CT scan. I saw her after she got her CT scan done. I discussed with her about her pneumonia, hydropneumothorax and I answered all of her questions. I discussed with her about her tenuous respiratory status, currently vital signs detect temperature of 98.5, pulse of 115 per minute, blood pressure of 142/75, saturating 91 to 98% on 4-6 L nasal cannula. PHYSICAL EXAMINATION: General: Patient appears anxious, in mild distress because of dyspnea. Oral cavity is moist. Patient is also appearing morbidly obese. Cardiovascular examination: S1, S2 normal. Tachycardic. No murmur, rub, or gallop. Appears regular. Respiratory examination: Air entry bilaterally equal with decreased air entry bilateral infrascapular region with inspiratory crackles. Breath sounds are significantly diminished more on the left than on the right. Abdomen: Obese, soft, nontender. She has urine catheter in place. Does not have lower extremity edema. Neurologic: Alert and oriented x3. Input and output suggests -1 L yesterday. She is -11 L since admission. LABS: Today suggestive of chronic hypercarbia, hyponatremia, hypochloremia. Microbiology: No new data. Previously, urine antigen was positive for streptococcal pneumonia. ASSESSMENT AND PLAN: 1. Sepsis and acute hypoxic respiratory failure secondary to bilateral streptococcal pneumonia and paranpneumonic effusion s/p thoracentesis on the left on July 30 and then left-sided hydropneumothorax post thoracenteses . Continue intravenous vancomycin and intravenous ceftriaxone. Continue oxygenation to maintain saturation more than 94%. Continue daily ABGs as required. 2. Chronic hypercarbic respiratory failure based on elevated pCO2. This could be related to obstructive sleep apnea or obesity hypoventilation syndrome. She should get outpatient sleep study. Continue nighttime CPAP and daytime oxygenation and daily ABG. 3. Microcytic anemia. No need of transfusion. Continue iron tablets. Previously, she had really low iron saturation suggestive of a degree of iron deficiency. 4. Chronic pain. Continue home Suboxone and Lyrica. 5. Deep venous thrombosis prophylaxis. Enoxaparin. Gastrointestinal prophylaxis, Pantoprazole. 6. Hypokalemia, resolved. 7. Hyponatremia, mild and asymptomatic. Monitor daily BMP. 8. Tachycardia, likely in the setting of sepsis. EKG suggestive of sinus tachycardia. If her blood pressure tolerates and she becomes hypertensive, I would consider beta judith. Otherwise, we will address underlying etiology which is her pneumonia. DISPOSITION: Patient remains inside [facility]. Plan of care was discussed with her. All of her questions have been answered satisfactorily. cc: Eris Crouch MD MTDD
[2018-08-04] MEDS: BUPRENEX IV PRN (14:23)
[2018-08-04] MEDS: FOLIC ACID 1 MG in NS 50 ML IV SCH (20:48)
[2018-08-04] MEDS: TYLENOL PO PRN (21:02)
[2018-08-04] MEDS: PROTONIX IV SCH (23:46)
[2018-08-05] MEDS: ROCEPHIN 2 GM in NS 50 ML IV SCH ×2 (00:26→13:04)
[2018-08-05] MEDS: DUONEB (A & A) INH SCH ×5 (03:07→19:10)
[2018-08-05 05:26] LABS: ALLEN TEST YES; BE 13.9 mmoll (-3.0-3.0); BLOOD TYPE ARTERIAL; HCO3-(ACT) 35.7 mmoll (20.0-26.0); METHB 0.9 % (0.0-1.5); O2(CT) 11.6 mL/dL (15.0-23.0); O2HB 93.9 % (95.0-99.0); PO2(98.6) 80 mmHg (60-100); SAMPLE BLOOD; SAO2 95.9 % (95.0-100.0); THB 8.7 g/dL (11.5-17.4); pH(98.6) 7.45 (7.35-7.45)
[2018-08-05 05:28] LABS: PCO2(98.6) 57 mmHg (35-45)
[2018-08-05 05:29] LABS: MODALITY BI PAP
[2018-08-05] MEDS: LOVENOX SUBQ SCH (05:58)
[2018-08-05 05:59] LABS: AGAP 11; BUN 7 mg/dL (8-22); CALCIUM 8.3 mg/dL (8.8-10.2); CHLORIDE 90 mmol/L (98-107); COSMO 271; CREATININE 0.3 mg/dL (0.5-0.9); ESTIMATED GFR > 60; GLUCOSE 112 mg/dL (70-104); POTASSIUM 3.4 mmol/L (3.5-5.1); SODIUM 136 mmol/L (136-145); TCO2 35 mmol/L (25-35)
--- NOTE | 2018-08-05 06:47 | INFECTIOUS DISEASE PROGRESS NO ---
DATE: 08/05/2018 PRESENT ILLNESS: The patient has pneumococcal pneumonia with parapneumonic effusions. MEDICATIONS: The patient has been on Rocephin now for 11 days and vancomycin now for 4 days. PHYSICAL EXAMINATION: Vital Signs: Temperature is 98.2, pulse 94, respirations 16, blood pressure 135/72. Generally, this is an obese, somewhat ill-appearing, young female. She is in no acute distress, and she told me she feels like she is getting better. Head/Eyes/Ears/Nose/Throat: The patient is wearing a BiPAP mask. I do not see any drainage from the nose or ears. Neck: No stiffness. Lungs clear to auscultation. Cardiovascular: Regular heart rate. Abdomen is soft and nontender. The patient's legs remain edematous. Neurologic: The patient is alert. She can talk. She can move her extremities. LABORATORY DATA AND X-RAY: CT scan of the chest shows bibasilar atelectasis and/or pneumonia and loculated hydropneumothorax. Creatinine is 0.3. GFR is greater than 60. Arterial blood gases show a pH of 7.45, a PO2 of 80 and a pCO2 of 57. ASSESSMENT AND PLAN: The patient has pneumococcal pneumonia with parapneumonic effusions. I plan to continue with vancomycin and Rocephin. COMORBIDITY: Obesity. cc: Carloz Antonio MD
--- NOTE | 2018-08-05 07:35 | Diag Imaging Result Doc PS360 ---
EXAM: CHEST-1 VIEW INDICATION: SOB TECHNIQUE: One view COMPARISON: 08/04/2018 FINDINGS: There is a known loculated hydropneumothorax on the left. There is proportionately more gas than fluid when compared to the prior plain radiograph. However, it is similar to a CT of the chest that was also performed on 08/04/2018. There is also a right pleural effusion that is probably somewhat larger. There is associated bibasilar atelectasis. Pulmonary edema is essentially stable. No other new consolidation is identified. Cardiac silhouette is stable. IMPRESSION: 1.Known left hydropneumothorax with more gas relative to fluid as compared to the previous plain radiograph. 2.Right pleural effusion that appears slightly larger. Electronically signed by Edmond Petit 08/05/2018 7:32 AM
[2018-08-05] MEDS: MUCOMYST 20% INH SCH ×3 (08:08→19:10)
[2018-08-05] MEDS: LASIX IV SCH (09:19)
[2018-08-05] MEDS: LYRICA PO SCH (09:19)
[2018-08-05] MEDS: VANCOMYCIN 2,000 MG in NS 500 ML IV SCH ×2 (09:19→21:10)
[2018-08-05] MEDS: ICAR-C PO SCH ×2 (09:19→20:06)
[2018-08-05] MEDS: SUBOXONE 8 MG/2 MG SL SCH ×2 (09:19→20:06)
[2018-08-05] MEDS ORDERED: POTASSIUM CHLORIDE 20 MEQ/SWI 20 MEQ/100 ML IVPB IV SCH (11:00)
--- NOTE | 2018-08-05 12:13 | PROGRESS NOTE ---
DATE: 08/05/2018 OVERNIGHT EVENTS: She underwent a CT scan of her chest, which had detected left-sided persistent hydropneumothorax. She also had a 1 time fever episode. SUBJECTIVE: The patient is feeling fine, denying any complaints. She still feels she is having some chest pressure and is feeling a little short of breath. I discussed about the course and answered all of her questions. I also discussed with her about the fluid and air around the lung, and we will await surgical recommendation about need for chest tube placement if needed in the future. OBJECTIVE: Vitals: Current vitals show temperature of 99.3 degrees, pulse of 105 per minute, blood pressure 120/70, saturating 90 to 99% on 3 to 4 L nasal cannula. Input and output suggests - 1 L yesterday. General: The patient does not appear in acute distress. Morbidly obese. Cardiovascular: S1, S2 normal. Tachycardic. No murmur, rub or gallop. Respiratory: Air entry bilaterally equal in the suprascapular region, however, decreased air entry with inspiratory crackles bilaterally in the infrascapular region, more diminished on the left than on the right. Abdomen: Obese, soft, nontender. : She has a urinary catheter in place. Extremities: No lower extremity edema. She is alert, oriented x3. DIAGNOSTIC DATA: Labs today suggestive of chronic hypercarbic respiratory failure, hypokalemia, and normal kidney function. ASSESSMENT AND PLAN: 1. Sepsis and acute hypoxic respiratory failure secondary to bilateral streptococcal pneumonia and parapneumonic effusion, status post thoracentesis on the left on July 30 and then left- sided hydropneumothorax postprocedure. Continue intravenous vancomycin and ceftriaxone as per ID recommendation. Continue oxygenation to maintain saturation more than 94%, with nasal cannula and BiPAP. 2. Chronic hypercarbic respiratory failure based on elevated pCO2, could be related to obstructive sleep apnea or obesity hypoventilation syndrome, and she should get outpatient sleep study. Continue to cycle nasal cannula and BiPAP. 3. Microcytic anemia. No need of transfusion. Continue iron for suspected iron deficiency considering low iron saturation on iron panel. 4. Chronic pain. Continue home Suboxone and Lyrica. 5. DVT prophylaxis with enoxaparin. 6. GI prophylaxis with pantoprazole. 7. Hypokalemia, being repleted. 8. Hyponatremia, mild, asymptomatic. 9. Tachycardia, likely in the setting of sepsis, sinus tachycardia. I will just monitor it. 10. Disposition. The patient remains inside the [facility]. I will await surgery recommendation about need for chest tube placement infusion if she continues to have hydropneumothorax. The plan of care was discussed with her. All of her questions have been answered. cc: Eris Crouch MD
[2018-08-05] MEDS: KLOR-CON PO SCH ×2 (13:04→20:06)
[2018-08-05] MEDS: TYLENOL PO PRN (16:45)
[2018-08-05] MEDS: FOLIC ACID 1 MG in NS 50 ML IV SCH (20:05)
[2018-08-05] MEDS ORDERED: LASIX IV ONE (22:00)
--- NOTE | 2018-08-05 23:10 | PULMONOLOGY PROGRESS NOTE ---
DATE: 08/05/2018 SUBJECTIVE: The patient is sitting in a chair. She reports she feels better than yesterday. OBJECTIVE: The patient has been having low-grade temperatures. Maximum temperature this morning 100.8 degrees. BP 140/76, heart rate 122, respiratory rate 19, oxygen saturation 96% on 3 L per nasal cannula. HEENT: Pupils are equal and reactive. Oropharynx is clear. Neck: Supple. Chest: Reveals diminished breath sounds, left base, with crackles present. Cardiac exam: Regular rate. Normal S1, normal S2. Abdomen: Obese and soft and without hepatosplenomegaly. Extremities: Without edema. LABORATORIES: CT scan yesterday reveals a loculated hydropneumothorax. Chest x-ray today reveals bibasilar effusions. There is slightly less fluid on the left on the site of the hydropneumothorax. IMPRESSION: A 37-year-old with pneumococcal pneumonia, pleural effusions, hypoxemic respiratory failure, and a hydropneumothorax on the left. The patient's hydropneumothorax currently being followed by Surgery. She may require a chest tube if it enlarges over time, but previous pleural fluid was negative for growth. RECOMMENDATIONS: 1. Continue oxygen for hypoxemic respiratory failure. 2. Continue antibiotics per Infectious Disease. 3. Attempt to balance input and output. 4. Followup chest x-ray tomorrow. Would like to try and obtain a 2-view chest, if possible. cc: Dipesh Gant MD
[2018-08-06] MEDS: ROCEPHIN 2 GM in NS 50 ML IV SCH ×2 (01:20→12:58)
[2018-08-06] MEDS: PROTONIX IV SCH (01:20)
[2018-08-06] MEDS: DUONEB (A & A) INH SCH ×7 (03:43→23:40)
[2018-08-06] MEDS: LOVENOX SUBQ SCH (05:19)
[2018-08-06 05:48] LABS: ALLEN TEST YES; BE 14.4 mmoll (-3.0-3.0); BLOOD TYPE ARTERIAL; HCO3-(ACT) 36.1 mmoll (20.0-26.0); METHB 0.5 % (0.0-1.5); O2(CT) 9.5 mL/dL (15.0-23.0); O2HB 93.5 % (95.0-99.0); PO2(98.6) 75 mmHg (60-100); SAMPLE BLOOD; SAO2 96.9 % (95.0-100.0); THB 7.1 g/dL (11.5-17.4); pH(98.6) 7.44 (7.35-7.45)
[2018-08-06 05:49] LABS: MODALITY BI PAP
[2018-08-06 05:50] LABS: PCO2(98.6) 59 mmHg (35-45)
[2018-08-06 06:32] LABS: MAGNESIUM 1.9 mg/dL (1.5-2.7); PHOSPHORUS 4.1 mg/dL (2.7-4.5)
[2018-08-06] MEDS: ICAR-C PO SCH ×2 (08:31→20:16)
[2018-08-06] MEDS: SUBOXONE 8 MG/2 MG SL SCH ×2 (08:31→20:16)
[2018-08-06] MEDS: LYRICA PO SCH (08:32)
[2018-08-06] MEDS: LASIX IV SCH (08:32)
[2018-08-06] MEDS: VANCOMYCIN 2,000 MG in NS 500 ML IV SCH ×2 (08:37→20:15)
--- NOTE | 2018-08-06 09:20 | Diag Imaging Result Doc PS360 ---
EXAM: CHEST-2 VIEWS HISTORY: abnormal exam TECHNIQUE: Chest two views COMPARISON: 08/05/2018 FINDINGS: There are small to moderate-sized pleural effusions. There are loculated collections in the left hemithorax with a small apical pneumothorax. Vascular distention remains. No cardiomegaly. IMPRESSION: No significant interval change. Electronically signed by Emile Hou 08/06/2018 9:17 AM
[2018-08-06] MEDS: MUCOMYST 20% INH SCH ×3 (10:07→19:29)
--- NOTE | 2018-08-06 15:09 | PULMONOLOGY PROGRESS NOTE ---
DATE: 08/06/2018 SUBJECTIVE: The patient is awake, alert, and conversant. She has a dry cough. She has some basilar chest pain. OBJECTIVE: Maximum temperature in the last 24 hours 100.6 degrees at 4 o'clock yesterday afternoon. She has been afebrile since that time. BP 112/68, heart rate 110, respiratory rate 12, oxygen saturation 95% on nasal cannula.HEENT: Pupils are equal and reactive. Oropharynx is clear. Neck: Is supple. Chest: Reveals diminished breath sounds with crackles at the left base. Cardiac: S1-S2. Abdomen: Soft and without hepatosplenomegaly. Extremities: Without edema. LABORATORIES: Chest x-ray reveals small bilateral effusions with hydropneumothorax on the left with mild vascular distention. White blood count not obtained today. Chemistry not obtained today. Microbiology, no new data. IMPRESSION: 37-year-old with pneumococcal pneumonia, hydropneumothorax with pleural effusion, hypoxemic respiratory failure. Radiograph appears to be stable. She has had significant urine output. I did ask the patient if she would like the Garcia catheter removed but she declined this offer due to frequent urination. RECOMMENDATIONS: 1. Continue oxygen for hypoxemic respiratory failure. 2. Continue antibiotics per Infectious Disease. 3. Attempt to balance intake and output. 4. Followup 2-view chest x-ray on Wednesday. cc: Dipesh Gant MD
--- NOTE | 2018-08-06 17:51 | PROGRESS NOTE ---
DATE: 08/06/2018 SUBJECTIVE: Overnight events: She did have a fever episode of 100.8. She remained tachycardic with a heart rate of 100 to 110 all the time. She was saturating 90% to 96% on 4-6 liters nasal cannula. The patient continues to have shortness of breath feelings. She is sitting in the chair by the bed today. She states that she has been engaging in physical activity as much as she could. No new complaints. OBJECTIVE: Vital Signs: Temperature 98.4, pulse 120 per minute, blood pressure 130/60, saturating 91% on 4 liters nasal cannula. General: Appears in mild distress. Oral cavity is moist. Air entry bilaterally equal. She has decreased air entry in the bilateral infrascapular regions with inspiratory crackles, more diminished on the left than the right. Cardiovascular: S1 and S2 normal, tachycardic. No murmur or gallop. Abdomen: Obese, soft and nontender. Genitourinary: She has a urine catheter in place, which she wanted, considering she is on Lasix. Extremities: No lower extremity edema. Neurologic: She is alert and oriented x3. LABORATORY DATA: Today suggestive of hypercarbia. I will follow up with a BMP and CBC tomorrow. ASSESSMENT/PLAN: 1. Sepsis and acute hypoxic respiratory failure secondary to bilateral Streptococcal pneumonia and parapneumonic effusion, status post thoracentesis on July 30, status post left-sided hydropneumothorax post procedure. Continue intravenous vancomycin and ceftriaxone as per infectious disease. Continue oxygenation to maintain saturation more than 94% by nasal cannula, and continue nighttime BiPAP for hypercarbia and hypercarbic respiratory failure. 2. Chronic hypercarbic respiratory failure based on elevated pCO2. Could be related to obstructive sleep apnea or obesity hypoventilation syndrome. She should get outpatient sleep study and continue to cycle nasal cannula and BiPAP. 3. Microcytic anemia. No need of transfusion. Continue iron for suspected iron deficiency, considering low iron saturation. Follow up with CBC tomorrow. 4. Chronic pain. Continue home Suboxone and Lyrica. 5. Deep venous thrombosis prophylaxis on enoxaparin subcutaneously. 6. Gastrointestinal prophylaxis on pantoprazole. 7. Hyponatremia and hypokalemia. Follow up with BMP tomorrow. 8. Sinus tachycardia in the setting of sepsis. DISPOSITION: Patient to remain in the CICU for close monitoring of her cardiorespiratory status. My plan is to [facility] back on Wednesday to discuss about the need for a possible chest tube considering her persistent hydropneumothorax and persistent fever spikes. Plan of care was discussed with the patient. I also called the patient's mother and [id number] and answered all of their questions. cc: Eris Crouch MD
[2018-08-07] MEDS: TYLENOL PO PRN ×2 (00:55→15:58)
[2018-08-07] MEDS: ROCEPHIN 2 GM in NS 50 ML IV SCH ×3 (01:32→23:54)
[2018-08-07] MEDS: PROTONIX IV SCH ×2 (01:32→23:55)
[2018-08-07] MEDS: FOLIC ACID 1 MG in NS 50 ML IV SCH ×2 (02:04→20:51)
[2018-08-07] MEDS: DUONEB (A & A) INH SCH ×6 (03:03→23:34)
[2018-08-07] MEDS: LOVENOX SUBQ SCH (05:19)
[2018-08-07 06:04] LABS: BASO# 0.11 X1000 (0.0-0.2); BASO% 1.1 % (0.0-0.8); EOS# 0.21 X1000 (0.0-0.7); HEMOGLOBIN 7.8 g/dL (12.0-16.0); LYMPH# 1.79 X1000 (1.2-3.4); LYMPH% 17.4 % (20.5-51.1); MCH 23.4 PG (27-31); MCHC 28.9 g/dL (33-37); MCV 81.1 FL (81-99); MONO# 1.17 X1000 (0.11-0.59); MONO% 11.4 % (1.7-9.3); MPV 10.5 FL (7.4-10.4); NEUT# 6.99 X1000 (1.4-6.5); NEUT% 68.1 % (42.2-75.2); PLT 796 X1000 (130-400); RBC 3.33 XMIL (4.2-5.4); RDW 19.8 % (11.5-14.5); WBC 10.27 X1000 (4.8-10.8)
[2018-08-07 06:18] LABS: AGAP 12; ALB/GLOB RATIO 0.6; ALBUMIN 2.3 g/dL (3.5-5.0); ALKALINE PHOSPHATASE 100 U/L (32-104); BUN 6 mg/dL (8-22); CALCIUM 7.8 mg/dL (8.8-10.2); CHLORIDE 92 mmol/L (98-107); COSMO 273; CREATININE 0.5 mg/dL (0.5-0.9); ESTIMATED GFR > 60; GLUCOSE 127 mg/dL (70-104); GOT 27 U/L (10-30); GPT 11 U/L (10-36); POTASSIUM 3.4 mmol/L (3.5-5.1); SODIUM 137 mmol/L (136-145); TCO2 33 mmol/L (25-35); TOTAL BILIRUBIN 0.38 mg/dL (0.20-1.00); TOTAL PROTEIN 6.2 g/dL (6.3-8.3)
[2018-08-07] MEDS: MUCOMYST 20% INH SCH ×3 (08:14→23:34)
[2018-08-07] MEDS: ICAR-C PO SCH ×2 (08:54→20:51)
[2018-08-07] MEDS: SUBOXONE 8 MG/2 MG SL SCH ×2 (08:54→20:50)
[2018-08-07] MEDS: LASIX IV SCH (08:55)
[2018-08-07] MEDS: LYRICA PO SCH ×2 (08:55→20:51)
[2018-08-07] MEDS: VANCOMYCIN 2,000 MG in NS 500 ML IV SCH ×2 (09:15→21:46)
[2018-08-07] MEDS: KLOR-CON PO SCH ×4 (12:45→19:05)
[2018-08-07] MEDS ORDERED: MYCOSTATIN SUSP PO SCH (13:00)
--- NOTE | 2018-08-07 14:08 | PROGRESS NOTE ---
DATE: 08/07/2018 OVERNIGHT EVENTS: Overnight no acute events. She did have an episode of fever with 101 degree Fahrenheit. INTERVAL HISTORY: The patient subjectively is feeling the same. She is complaining of some soreness in the mouth. She continues to have some shortness of breath. OBJECTIVE: Vital signs: Temperature 100.7 degrees, pulse 120 per minute, blood pressure 115/75, saturating 95% on 5 L nasal cannula. She is also intermittently on CPAP. General: Appears in mild distress because of shortness of breath. HEENT: Oral cavity has ulceration and oral thrush. It appears moist with pool of saliva. Respiratory: Decreased air entry bilateral infrascapular region with inspiratory crackles, more pronounced and more diminished air entry on left than right. Cardiovascular: S1, S2 normal. Tachycardic. No murmur, rub or gallop. Abdomen: Obese, soft, nontender. : She has urine catheter in place. Extremities: No lower extremity edema, except edema affecting bilateral feet. Neurologic: Alert and oriented x3. ASSESSMENT AND PLAN: 1. Sepsis and acute hypoxic respiratory failure secondary to bilateral streptococcal pneumonia and parapneumonic effusions, status post thoracenteses on July 30, status post left-sided hydropneumothorax postprocedure. Continue intravenous vancomycin and ceftriaxone as per ID's recommendation. Continue oxygenation to maintain saturation more than 94% through nasal cannula and BiPAP for hypercarbic respiratory failure. 2. Chronic hypercarbic respiratory failure based on elevated pCO2, which is compensated. Outpatient sleep study to evaluate for obstructive sleep apnea or obesity hypoventilation syndrome. 3. Microcytic anemia. No need of transfusion. Continue iron for iron deficiency. Follow up with CBC. 4. Chronic peripheral neuropathy and chronic pain. Continue home Suboxone and Lyrica. I will increase the dose of Lyrica as patient states she was taking it 3 times a day. 5. Deep vein thrombosis prophylaxis. Enoxaparin subcutaneous. 6. Oral thrush. I will start the patient on clotrimazole oral lozenges and if required I would add Magic mouthwash. 7. Gastrointestinal prophylaxis. Pantoprazole. 8. Hyponatremia and hypokalemia. Hyponatremia has resolved. Hypokalemia is being repleted. I will follow up with BMP as required. 9. Disposition. Patient remains in the CICU for close monitoring of her respiratory status. Plan for her is to get a repeat chest x-ray tomorrow and have evaluation by surgical team for need for chest tube placement versus surgical procedure on her left pleura. Plan of care was discussed with her. All of her questions have been answered. cc: Eris Crouch MD
[2018-08-07] MEDS: MYCELEX TROCHE PO SCH ×3 (14:26→23:55)
[2018-08-07] MEDS ORDERED: LYRICA PO SCH (18:30)
--- NOTE | 2018-08-07 19:44 | PULMONOLOGY PROGRESS NOTE ---
DATE: 08/07/2018 SUBJECTIVE: The patient continues to have some chest pain left greater than right. She has dyspnea when she gets up and moves. She is without new complaints. OBJECTIVE: Maximum temperature in the last 24 hours is 100.4 degrees, current temperature 98.9 degrees.HEENT: Pupils are equal and reactive. Oropharynx is clear. The patient has some plaquing on her tongue and candidiasis is suspected. Neck: Is supple. Chest: Reveals good air entry bilaterally without wheezing or rhonchi. Cardiac: S1, S2. Abdomen: Is soft. Extremities: Without edema. LABORATORIES: White blood count 10.27, hemoglobin 7.8, platelet count 796,000. Sodium 137, potassium 3.4, chloride 92, bicarbonate 33, BUN 6, creatinine 0.5. IMPRESSION: 37-year-old with pneumococcal pneumonia, hydropneumothorax with pleural effusion, negative pleural cultures, hypoxemic respiratory failure, and morbid obesity. The patient also has oral candidiasis. She is having intermittent low-grade fevers. RECOMMENDATIONS: 1. Followup chest x-ray tomorrow morning. 2. Continue oxygen for hypoxemic respiratory failure. 3. Continue antibiotics per Infectious Disease. 4. If the patient has ongoing fevers, she may require chest tube placement and drainage of the hydropneumothorax. cc: Dipesh Gant MD
[2018-08-07] MEDS: CALMOSEPTINE OINTMENT TOP PRN (22:32)
[2018-08-08] MEDS: PROTONIX IV SCH ×2 (00:07→00:08)
[2018-08-08] MEDS: ROCEPHIN 2 GM in NS 50 ML IV SCH ×2 (00:08→13:20)
[2018-08-08] MEDS: DUONEB (A & A) INH SCH ×6 (03:05→23:17)
[2018-08-08] MEDS: MYCELEX TROCHE PO SCH ×4 (04:53→21:12)
[2018-08-08] MEDS: LOVENOX SUBQ SCH (05:11)
[2018-08-08 06:31] LABS: AGAP 10; BUN 7 mg/dL (8-22); CALCIUM 8.5 mg/dL (8.8-10.2); CHLORIDE 95 mmol/L (98-107); COSMO 270; CREATININE 0.5 mg/dL (0.5-0.9); ESTIMATED GFR > 60; GLUCOSE 104 mg/dL (70-104); POTASSIUM 4.2 mmol/L (3.5-5.1); SODIUM 136 mmol/L (136-145); TCO2 31 mmol/L (25-35)
--- NOTE | 2018-08-08 06:35 | INFECTIOUS DISEASE PROGRESS NO ---
DATE: 08/08/2018 PRESENT ILLNESS: The patient has pneumococcal pneumonia with parapneumonic effusions and at least one seems to be loculated. The patient also has oral candidiasis. MEDICATIONS: The patient is on a combination of Rocephin now for 14 days and vancomycin now for 7 days. The patient is also taking Mycelex troches. PHYSICAL EXAMINATION: Vital Signs: Temperature was 102 degrees earlier and now is 99.2, pulse 112, respirations 18, blood pressure 140/71. General: This is an obese, ill-appearing, young female. She is in no acute distress. She is wearing a BiPAP mask. Head, Eyes, Ears, Nose, and Throat: As mentioned above, she has got a BiPAP mask. Her tongue has some brown and white patches on it. She can hear my spoken words and see near objects. Neck: No meningismus. Lungs: Clear to auscultation. Cardiovascular: Regular heart rate. Abdomen: Soft and nontender. Extremities: Both legs are edematous but not erythematous. Neurologic: The patient is alert. She can move her extremities. LAB AND X-RAY: The CBC for today is not back yet. Yesterday, the CBC showed a white count of 10,270, hemoglobin 7.8, and platelet count 796,000. Creatinine is 0.5. GFR is greater than 60. Liver function studies are normal. The patient's chest x-ray from the shows small to moderate size pleural effusions. There are loculated collections in the left hemithorax and a small apical pneumothorax. Vascular distention remains. No cardiomegaly. ASSESSMENT AND PLAN: The patient has pneumococcal pneumonia with parapneumonic effusions. I am going to continue her antibiotics and discuss with Dr. Wright about possible approaches to remove the pleural fluid such as either needle aspiration or decortication. COMORBIDITIES: The patient's main comorbidity is obesity. cc: Carloz Antonio MD
[2018-08-08 06:57] LABS: BASO# 0.09 X1000 (0.0-0.2); BASO% 0.9 % (0.0-0.8); EOS# 0.18 X1000 (0.0-0.7); EOS% 1.8 % (0.0-10.0); HEMATOCRIT 28.4 % (37.0-47.0); HEMOGLOBIN 8.1 g/dL (12.0-16.0); IMM GRAN# 0.02 X1000 (0.0-0.04); IMM GRAN% 0.2 % (0.0-0.5); LYMPH# 1.97 X1000 (1.2-3.4); MCH 23.2 PG (27-31); MCHC 28.5 g/dL (33-37); MCV 81.4 FL (81-99); MONO# 1.03 X1000 (0.11-0.59); MONO% 10.5 % (1.7-9.3); MPV 10.3 FL (7.4-10.4); NEUT# 6.56 X1000 (1.4-6.5); NEUT% 66.6 % (42.2-75.2); PLT 809 X1000 (130-400); RBC 3.49 XMIL (4.2-5.4); RDW 19.7 % (11.5-14.5); WBC 9.85 X1000 (4.8-10.8)
[2018-08-08 08:17] LABS: BANDS 4 % (0-1); LYMPHS 20 % (21-51); MONO 8 % (1-9); SEGS 66 % (42-75)
[2018-08-08 08:25] LABS: ANISOCYTOSIS 1+; HYPOCHROM 1+; LARGE PLATELETS 1+
[2018-08-08] MEDS: MUCOMYST 20% INH SCH ×3 (08:52→19:25)
[2018-08-08] MEDS: LASIX IV SCH (09:04)
[2018-08-08] MEDS: ICAR-C PO SCH ×2 (09:05→21:12)
[2018-08-08] MEDS: SUBOXONE 8 MG/2 MG SL SCH ×2 (09:05→21:12)
[2018-08-08] MEDS: LYRICA PO SCH ×3 (09:05→21:12)
[2018-08-08] MEDS: VANCOMYCIN 2,000 MG in NS 500 ML IV SCH ×2 (09:05→21:48)
--- NOTE | 2018-08-08 12:12 | Diag Imaging Result Doc PS360 ---
EXAM: CHEST-2 VIEWS HISTORY: abnormal exam TECHNIQUE: Chest two views COMPARISON: 06/06/2019 FINDINGS: There are multiple loculated fluid collections in the left hemithorax with air-fluid levels. Small left apical pneumothorax on the prior study. There also appear to be small pleural effusions. No cardiomegaly. There is vascular distention. IMPRESSION: No interval improvement. Electronically signed by Emile Hou 08/08/2018 12:10 PM
--- NOTE | 2018-08-08 12:56 | PROGRESS NOTE ---
DATE: 08/08/2018 INTERVAL HISTORY: No acute events. In the interval, the patient continues to spike intermittent fever. Her shortness of breath remains as they have been. We discussed about chest x-ray findings and awaiting surgery recommendation. I answered all of her questions. OBJECTIVE: Vitals: Suggest temperature of 98.2. She had fever of 101.8 yesterday. Pulse of 113 per minute, respiratory rate of 17 per minute, blood pressure of 144/76, she is saturating 96% on intermittent BiPAP nasal cannula. Physical examination is unchanged. LAB: Nothing significant except no leukocytosis. Normocytic anemia. Normal electrolytes. Normal kidney function. ASSESSMENT AND PLAN: Sepsis and acute hypoxic respiratory failure, secondary to bilateral streptococcal pneumonia, parapneumonic effusion, status post thoracentesis on July 30, status post left-sided hydropneumothorax postprocedure. Continue intravenous vancomycin, intravenous ceftriaxone as per Infectious disease recommendation. Continue BiPAP on nasal cannula oxygenation to maintain saturation more than 94% . Awaiting surgery recommendations as I think patient would need chest tube placement for loculated infected pleural effusion as she continues to have fever spike, chronic hypercarbic respiratory failure based on elevated pCO2, which was compensated. She needs outpatient sleep study to evaluate for obstructive sleep apnea or obesity hypoventilation syndrome. 2. Chronic hypercarbic respiratory failure based on elevated pCO2, which is compensated. Outpatient sleep study to evaluate for obstructive sleep apnea or obesity hypoventilation syndrome. 3. Microcytic anemia. No need of transfusion. Continue iron for iron deficiency. Follow up with CBC. 4. Chronic peripheral neuropathy and chronic pain. Continue home Suboxone and Lyrica. 5. Deep vein thrombosis prophylaxis. Enoxaparin subcutaneous. 6. Oral thrush. Cont clotrimazole oral lozenges 7. Gastrointestinal prophylaxis. Pantoprazole. 8. Hyponatremia and hypokalemia. Hyponatremia has resolved. Hypokalemia is being repleted. I will follow up with BMP as required. 9. Disposition. Patient remains in the CICU for close monitoring of her respiratory status. cc: Eris Crouch MD [facility]PITALArnulfo
--- NOTE | 2018-08-08 18:09 | PROGRESS NOTE ---
DATE: 08/08/2018 Ms. Ruthie Singh is a 37-year-old morbidly obese white female who has been treated for pneumonia and clinically has improved as has her chest x-ray. However there appears to be persistent loculated fluid collections left hemithorax. Her white blood cell count is normal but she has had a low-grade fever of 99.9. It is felt that these fluid collections may need to be drained. I feel that we ought to try CT-guided drainage of these fluid collections per Radiology with pigtail catheters if at all possible. Because of her size, any chest tube would be very difficult to place accurately. cc: Mavis Wright MD
[2018-08-08] MEDS: FOLIC ACID 1 MG in NS 50 ML IV SCH (21:12)
[2018-08-08] MEDS: COLACE PO SCH (21:12)
[2018-08-08] MEDS: CALMOSEPTINE OINTMENT TOP PRN (23:28)
[2018-08-09] MEDS: MYCELEX TROCHE PO SCH ×4 (01:06→21:45)
[2018-08-09] MEDS: ROCEPHIN 2 GM in NS 50 ML IV SCH ×2 (01:07→13:24)
[2018-08-09] MEDS: PROTONIX IV SCH (01:07)
[2018-08-09] MEDS: DUONEB (A & A) INH SCH ×6 (03:33→23:17)
[2018-08-09] MEDS: LOVENOX SUBQ SCH (05:40)
--- NOTE | 2018-08-09 06:24 | INFECTIOUS DISEASE PROGRESS NO ---
DATE: 08/09/2018 PRESENT ILLNESS: The patient has pneumococcal pneumonia with parapneumonic effusion. The patient also has oral candidiasis. MEDICATIONS: The patient has been on Rocephin now for 15 days and vancomycin for 8 days. The patient also is taking Mycelex troches for her oral candidiasis. PHYSICAL EXAMINATION: Vital Signs: Temperature is 99.8 degrees, pulse 107, respirations 14, blood pressure 122/75. General: This is an obese, ill-appearing, young female. She is in no acute distress. She is wearing a BiPAP mask again. Head, Eyes, Ears, Nose, and Throat: As mentioned above, she has a BiPAP mask on. There were no white patches on her tongue. She can hear my spoken words and see near objects. Neck: No stiffness. Lungs: Clear to auscultation. Cardiovascular: Heart rate is regular. Abdomen: Soft and nontender. Neurologic: The patient is alert. She can move her extremities. There is no tremor. LAB AND X-RAY: The repeat blood cultures are negative thus far. As far as any other lab, there is no new lab ordered. I discussed the patient's case with Dr. Wright yesterday and he said he was going to ask radiology to drain the loculated fluid on the left thorax and put in a pigtail catheter. COMORBIDITIES: The patient is obese. ASSESSMENT AND PLAN: I plan to continue with the patient's Mycelex troches while she is still on antibiotics. cc: Carloz Antonio MD
[2018-08-09] MEDS: LASIX IV SCH (08:19)
[2018-08-09] MEDS: SUBOXONE 8 MG/2 MG SL SCH ×2 (08:19→21:45)
[2018-08-09] MEDS: ICAR-C PO SCH ×2 (08:19→21:45)
[2018-08-09] MEDS: COLACE PO SCH ×2 (08:20→21:45)
[2018-08-09] MEDS: LYRICA PO SCH ×3 (08:20→21:45)
[2018-08-09] MEDS: MUCOMYST 20% INH SCH ×3 (08:23→19:17)
[2018-08-09] MEDS: VANCOMYCIN 2,000 MG in NS 500 ML IV SCH ×2 (09:14→21:44)
--- NOTE | 2018-08-09 10:11 | PROGRESS NOTE ---
DATE: 08/09/2018 INTERVAL EVENTS: The patient did not get any surgical intervention on her left hemithorax yesterday. According to surgeon's note, a CT-guided drainage of her loculated pleural effusion is likely to be planned. However, I do not have definitive information. I called the surgeon and left a voice message to get more detailed information on that. SUBJECTIVE: Patient denies new complaints. Continues to have shortness of breath and fever spike. Continues to have some chest discomfort. Denies nausea, vomiting, abdominal pain. She wanted me to inform her mother, grandmother, and about her clinical condition, which I would try and convey if possible during the daytime once I hear back from the surgeon about definitive surgical management plan for her loculated effusion. OBJECTIVE: Vital signs: Temperature 97.7 degrees, pulse 113, blood pressure 124/66, saturating 99% on BiPAP and 93% on nasal cannula. General: Appears in mild to moderate distress because of shortness of breath. Oral cavity has oral ulceration and thrush, moist with pool of saliva. Respiratory: Air entry bilateral infrascapular crackles, more pronounced on the left side and more diminished air entry on left infrascapular region than the right. Cardiovascular: S1, S2 normal. Tachycardic. No murmur or gallop. Abdomen: Obese, soft, nontender. She has urine catheter in place. Extremities: No lower extremity edema except edema affecting bilateral feet. Neurologic: Alert and oriented x3. ASSESSMENT AND PLAN: 1. Sepsis and acute hypoxic respiratory failure secondary to bilateral streptococcal pneumonia and parapneumonic effusions, status post thoracentesis on July 30 and status post left- sided hydropneumothorax postprocedure on August 01. Continue intravenous vancomycin and ceftriaxone as per Infectious Disease. Repeat blood cultures have been negative. Patient continues to have fever spike, likely due to loculated left-sided pleural effusions and hydropneumothorax. I am awaiting Surgery recommendation about need for chest tube or CT- guided drainage. Continue oxygenation to maintain saturation more than 94% to nasal cannula and BiPAP for hypercarbic respiratory failure. 2. Chronic hypercarbic respiratory failure based on elevated PCO2. This was compensated. Outpatient sleep study to evaluate for sleep apnea or obesity hypoventilation syndrome. 3. Microcytic iron deficiency anemia. Follow up CBC tomorrow. Continue iron. 4. Chronic peripheral neuropathy and chronic pain. Continue home Suboxone and Lyrica. 5. Deep venous thrombosis prophylaxis. Enoxaparin. 6. Oral thrush. Continue clotrimazole lozenges. 7. GI prophylaxis, pantoprazole. 8. Hypokalemia, resolved. DISPOSITION: Patient remains in the CICU for close monitoring of respiratory status. Plan of care was discussed with her. All of her questions have been answered. At this point, central to the medical management plan is actually surgical intervention for drainage of her left-sided loculated effusion. I am awaiting Surgery recommendation. cc: Eris Crouch MD
[2018-08-09 10:50] LABS: INR 1.11; PROTIME 15.2 Seconds (11.0-16.0)
[2018-08-09] MEDS ORDERED: NS 250 ML ONE (11:24)
[2018-08-09] MEDS: MYCOSTATIN POWDER TOP SCH ×2 (13:23→21:45)
--- NOTE | 2018-08-09 15:54 | PROGRESS NOTE ---
DATE: 08/09/2018 SUBJECTIVE: Ms. Ruthie Singh has loculated hydropneumothorax involving her left thorax. Clinically, she has improved on IV antibiotics from bilateral basilar pneumonia. She still has work of breathing. She is morbidly obese. She had low-grade fevers but over the last 24 hours she has had no fever. Her white blood cell count is normal. I discussed her chest x-ray and CT scans of her chest with Radiology, and they are willing to place under CT guidance, a pigtail catheter in the area of the hydropneumothorax, left chest. Any chest tube or thoracotomy would be difficult in this morbidly obese woman. I have discussed this radiologic procedure with the patient at the bedside. cc: Mavis Wright MD
[2018-08-09] MEDS: FOLIC ACID 1 MG in NS 50 ML IV SCH (21:08)
[2018-08-09] MEDS: TYLENOL PO PRN (23:46)
[2018-08-10] MEDS: PROTONIX IV SCH (01:15)
[2018-08-10] MEDS: MYCELEX TROCHE PO SCH ×4 (01:15→21:01)
[2018-08-10] MEDS: ROCEPHIN 2 GM in NS 50 ML IV SCH ×2 (01:15→14:50)
[2018-08-10] MEDS: DUONEB (A & A) INH SCH ×6 (03:32→23:10)
[2018-08-10 05:16] LABS: BASO# 0.09 X1000 (0.0-0.2); EOS# 0.31 X1000 (0.0-0.7); EOS% 3.4 % (0.0-10.0); HEMATOCRIT 27.4 % (37.0-47.0); HEMOGLOBIN 7.9 g/dL (12.0-16.0); IMM GRAN# 0.02 X1000 (0.0-0.04); IMM GRAN% 0.2 % (0.0-0.5); LYMPH# 1.77 X1000 (1.2-3.4); LYMPH% 19.2 % (20.5-51.1); MCH 23.4 PG (27-31); MCHC 28.8 g/dL (33-37); MCV 81.1 FL (81-99); MONO% 10.8 % (1.7-9.3); MPV 10.4 FL (7.4-10.4); NEUT# 6.04 X1000 (1.4-6.5); NEUT% 65.4 % (42.2-75.2); PLT 692 X1000 (130-400); RBC 3.38 XMIL (4.2-5.4); RDW 19.4 % (11.5-14.5); WBC 9.23 X1000 (4.8-10.8)
[2018-08-10 05:41] LABS: AGAP 12; BUN 7 mg/dL (8-22); CALCIUM 8.6 mg/dL (8.8-10.2); CHLORIDE 95 mmol/L (98-107); COSMO 276; CREATININE 0.4 mg/dL (0.5-0.9); ESTIMATED GFR > 60; GLUCOSE 104 mg/dL (70-104); SODIUM 139 mmol/L (136-145); TCO2 32 mmol/L (25-35)
[2018-08-10 05:49] LABS: INR 1.15; PROTIME 15.7 Seconds (11.0-16.0)
[2018-08-10 05:50] LABS: PTT 49.5 Seconds (22.3-41.8)
--- NOTE | 2018-08-10 06:55 | INFECTIOUS DISEASE PROGRESS NO ---
DATE: 08/10/2018 PRESENT ILLNESS: The patient has pneumococcal pneumonia with a parapneumonic effusion. The patient also has oral candidiasis. MEDICATIONS: This is the 16th day of Rocephin and the 9th day of vancomycin. The patient also is taking Mycelex Troches for her oral candidiasis. PHYSICAL EXAMINATION: Vital Signs: Temperature is 98.6 degrees, pulse 110, respirations 19, blood pressure 131/76. General: This is an obese, ill-appearing, lethargic young female. She is in no acute distress. Head/Eyes/Ears/Nose/Throat: She does not have any drainage from her nose or ears. She does not have any white patches on her tongue. Neck: No stiffness. Lungs: Clear to auscultation. Cardiovascular: Regular heart rate. Abdomen: Soft and nontender. Neurologic: As mentioned above, the patient is lethargic. She is arousable and did move her extremities when she was arousable. She does not have a tremor. LABORATORY AND X-RAY: The patient's CBC today shows a white count of 9230, hemoglobin 7.9, and platelet count 692,000. Creatinine is 0.4, GFR is greater than 60. The patient's most recent blood cultures are negative. ASSESSMENT AND PLAN: The patient has pneumonia with a parapneumonic effusion. I plan to continue with her antibiotics consisting of Rocephin and vancomycin. Today the loculated pleural effusion is to be drained in Radiology and have a pigtail catheter placed. The patient also will continue the Mycelex Troches while she is on antibiotics. COMORBIDITIES: The comorbidities in this patient, the patient is obese. cc: Carloz Antonio MD
[2018-08-10 07:19] LABS: EOS 3 % (1-10); HYPOCHROM 1+; LYMPHS 16 % (21-51); MONO 17 % (1-9); NRBC 1 % (0-0); SEGS 64 % (42-75)
[2018-08-10] MEDS: MUCOMYST 20% INH SCH ×4 (07:51→20:07)
[2018-08-10] MEDS ORDERED: DIPRIVAN 1% 0 MG/0 ML BOTTLE ONE (08:39)
[2018-08-10] MEDS ORDERED: VERSED ONE (08:39)
[2018-08-10] MEDS ORDERED: DIPRIVAN 1% ONE ×2 (08:53)
[2018-08-10] MEDS ORDERED: XYLOCAINE-MPF 2% ONE ×2 (08:54)
[2018-08-10] MEDS: SUBOXONE 8 MG/2 MG SL SCH ×2 (11:11→21:00)
[2018-08-10] MEDS: COLACE PO SCH ×2 (11:11→21:00)
[2018-08-10] MEDS: LYRICA PO SCH ×3 (11:11→21:00)
[2018-08-10] MEDS: VANCOMYCIN 2,000 MG in NS 500 ML IV SCH ×2 (11:11→21:41)
[2018-08-10] MEDS: ICAR-C PO SCH ×2 (11:11→21:00)
[2018-08-10] MEDS: LASIX IV SCH (11:12)
[2018-08-10] MEDS: LOVENOX SUBQ SCH (11:12)
[2018-08-10] MEDS: MYCOSTATIN POWDER TOP SCH ×2 (11:12→21:01)
--- NOTE | 2018-08-10 11:18 | Diag Imaging Result Doc PS360 ---
CT PLEURAL DRN CATH W/CT GUIDE - 08/10/2018 INDICATION: Loculated L hydropneumothorax. Place 12F pigtail TECHNIQUE: The risks and benefits of the procedure were discussed with the patient. All questions were answered. Written and verbal informed consent was obtained. Overlying skin was prepped and draped in sterile fashion. Skin anesthesia was achieved with injection of 10 cc of 1% lidocaine. Conscious sedation was provided by anesthesiology personnel. COMPARISON: CT from 08/04/2018 FINDINGS: A 12-Zambian pleural drain catheter was placed into the dominant air-fluid collection in the left pleural space. Air and serous fluid was drained. There were no apparent combinations from the procedure. IMPRESSION: Successful and uncomplicated CT-guided pleural drain placement of the left hydropneumothorax. Electronically signed by Raymond Schmidt 08/10/2018 11:15 AM
[2018-08-10] MEDS: KLOR-CON PO SCH ×3 (11:21→18:19)
--- NOTE | 2018-08-10 14:11 | PROGRESS NOTE ---
DATE: 08/10/2018 INTERVAL HISTORY: Yesterday, she was evaluated by her surgeon. I was not able to talk with the surgeon, however his notes state that the patient will be scheduled for CT- guided drainage of loculated pleural effusion. Earlier when I went to see her she was already down for CT-guided drainage. I evaluated her after the procedure of CT-guided drainage. SUBJECTIVE: The patient currently is feeling a little better, complaining of pain at the site of insertion of the chest tube. She states her shortness of breath might be a little better. Currently vital signs reveal temperature of 99.7 degrees, pulse 102 per minute, blood pressure 120/70, saturating 100% on bilateral nasal cannula. OBJECTIVE: HEENT: On physical examination, oral cavity is dry with aphthous ulcers and oral candidiasis, which is better than before. Lungs: Bilateral air entry decreased. Bilateral infrascapular region with inspiratory crackles which are more pronounced on the left than on the right side. She has left-sided thorax pigtail catheter which is attached to a drainage bag. I could see about 60 to 70 mL of bloody drain with tissue fragment. There is some localized tenderness around pigtail catheter site. Cardiovascular: S1, S2 normal. Her tachycardia has resolved and her heart rate is close to 90 per minute. No rub or gallop. Abdomen: Soft, nontender. Active bowel sounds. Extremities: Mild lower extremity edema. Neurologic: Alert and oriented x3. Input and output: She is -23 liters since admission. LABS: Suggestive of no leukocytosis. Persistent anemia, which is pretty close to being microcytic. Normal coagulation profile, hypokalemia, hypochloremia, stable kidney function. MICROBIOLOGY: No new microbiological data. IMAGING: No new imaging data. ASSESSMENT AND PLAN: 1. Sepsis and acute hypoxic respiratory failure secondary to bilateral streptococcal pneumonia and parapneumonic effusion status post thoracentesis on July 30 and status post left-sided hydropneumothorax on August 01, likely postprocedural. The patient is now status post pigtail pleural catheter which was introduced under CT guidance by Radiology on August 10. I would appreciate management of it by the surgical team. Continue intravenous vancomycin and ceftriaxone as per Infectious Disease recommendation. I will follow up with chest x-ray tomorrow to see the state of her loculated left-sided pleural effusion or hydropneumothorax. Continue oxygenation with BiPAP nasal cannula to maintain saturation more than 94%. 2. Chronic hypercarbic respiratory failure based on elevated pCO2, compensated. Continue BiPAP and nasal cannula as mentioned above. She will need outpatient sleep study. 3. Microcytic anemia, which appears to be chronic. Continue iron tablet. Currently, no need of transfusion. I will transfuse her with goal of keeping hemoglobin more than 7. 4. Chronic peripheral neuropathy and chronic pain. Continue home Suboxone and Lyrica. 5. Deep vein thrombosis prophylaxis on enoxaparin. 6. Oral thrush. Continue clotrimazole lozenges. 7. Gastrointestinal prophylaxis. Pantoprazole. 8. Hypokalemia, being repleted. 9. Constipation. I will start her on bisacodyl suppository. 10. Intrapleural catheter site pain. I will start her on topical lidocaine. 11. Disposition: The patient's condition is still critical and she will require close monitoring of cardiorespiratory status in CIC unit. I will call patient's mother and inform her about the patient's medical course again today, which I did previously as well. Plan of care was discussed with the patient. She was allowed to ask questions and all of her questions have been answered. Patient also requested to call her mother which I did on ([phone]). However, she did not pickle processor. I have left a voice message so that she could call us back. cc: Eris Crouch MD [facility]
[2018-08-10] MEDS: LIDODERM TOP SCH (14:51)
[2018-08-10] MEDS: DULCOLAX PR SCH (17:02)
[2018-08-10] MEDS: FOLIC ACID 1 MG in NS 50 ML IV SCH (21:00)
[2018-08-11] MEDS: PROTONIX IV SCH (02:21)
[2018-08-11] MEDS: ROCEPHIN 2 GM in NS 50 ML IV SCH ×2 (02:21→14:20)
[2018-08-11] MEDS: MYCELEX TROCHE PO SCH ×4 (02:22→19:48)
[2018-08-11] MEDS: DUONEB (A & A) INH SCH ×6 (03:07→23:10)
[2018-08-11 04:09] LABS: ALLEN TEST YES; BE 9.7 mmoll (-3.0-3.0); BLOOD TYPE ARTERIAL; HCO3-(ACT) 32.5 mmoll (20.0-26.0); METHB 1.2 % (0.0-1.5); O2(CT) 10.9 mL/dL (15.0-23.0); O2HB 93.7 % (95.0-99.0); PCO2(98.6) 50 mmHg (35-45); PO2(98.6) 76 mmHg (60-100); SAMPLE BLOOD; THB 8.2 g/dL (11.5-17.4); pH(98.6) 7.45 (7.35-7.45)
[2018-08-11 04:10] LABS: MODALITY CANNULA
[2018-08-11] MEDS: LOVENOX SUBQ SCH (06:16)
--- NOTE | 2018-08-11 07:47 | INFECTIOUS DISEASE PROGRESS NO ---
DATE: 08/11/2018 SUBJECTIVE: The patient has pneumococcal pneumonia with a parapneumonic effusion. Yesterday, fluid was drained through a thoracentesis. MEDICATIONS: The patient has been on Rocephin now for 17 days and 10 days for vancomycin. OBJECTIVE: Vital Signs: Temperature is 99.6 degrees, pulse 109, respirations 18, blood pressure 124/62. General: This is an obese, ill-appearing, and lethargic young female. She is in no acute distress. Head/eyes/ears/nose/throat: She does not have any drainage from her nose or ears. She does not have any oral ulcers, and she does not have any white patches on her tongue. Neck: No meningismus. Thorax: Patient has a drainage tube in place in the left back part of the thorax. Lungs: Clear to auscultation. Cardiovascular: Regular heart rate. Abdomen: Soft and nontender. Neurologic: The patient is a little bit lethargic. She did move her extremities to request. She intermittently would fall asleep. Integument: No rash noted. LAB AND RADIOLOGY: CBC-WBC 9.23, hgb 7.9, platelets 692K. Creatinine-0.4. GFR-> 60. Arterial blood gases-pH 7.45, pO2 76, pCO2 50. No new radiologic study at this time. ASSESSMENT AND PLAN: Patient has a pneumonia and a parapneumonic effusion. I plan to continue with current antibiotics pending culture results. As regarding the patient's oral candidiasis, I am going to continue with Mycelex troches, while the patient is on antibiotics. COMORBIDITIES: The patient is obese. cc: Carloz Antonio MD [facility]
--- NOTE | 2018-08-11 08:15 | Diag Imaging Result Doc PS360 ---
CHEST-1 VIEW - 08/11/2018 INDICATION: SOB COMPARISON: Prior exams FINDINGS: There is a right PICC line in good position. The left pleural drain has probably come out of place and is outside the chest wall. There has been significant improvement in the left pleural air and fluid collection. IMPRESSION: Pleural drain has probably been pulled out of the pleural space. Electronically signed by Raymond Schmidt 08/11/2018 8:13 AM
[2018-08-11] MEDS: MUCOMYST 20% INH SCH ×3 (08:35→19:10)
[2018-08-11] MEDS: COLACE PO SCH ×2 (08:37→19:48)
[2018-08-11] MEDS: LASIX IV SCH (08:38)
[2018-08-11] MEDS: LYRICA PO SCH ×3 (08:38→19:47)
[2018-08-11] MEDS: SUBOXONE 8 MG/2 MG SL SCH ×2 (08:38→19:48)
[2018-08-11] MEDS: ICAR-C PO SCH ×2 (08:38→19:48)
[2018-08-11] MEDS: MYCOSTATIN POWDER TOP SCH ×2 (08:39→19:49)
[2018-08-11] MEDS: LIDODERM TOP SCH (08:39)
[2018-08-11] MEDS: VANCOMYCIN 2,000 MG in NS 500 ML IV SCH ×2 (08:39→21:11)
[2018-08-11] MEDS: DULCOLAX PR SCH (08:51)
[2018-08-11 10:18] LABS: BASO# 0.09 X1000 (0.0-0.2); EOS# 0.32 X1000 (0.0-0.7); EOS% 3.7 % (0.0-10.0); HEMATOCRIT 28.3 % (37.0-47.0); IMM GRAN# 0.03 X1000 (0.0-0.04); IMM GRAN% 0.3 % (0.0-0.5); LYMPH# 1.46 X1000 (1.2-3.4); LYMPH% 16.8 % (20.5-51.1); MCH 23.1 PG (27-31); MCHC 28.3 g/dL (33-37); MCV 81.6 FL (81-99); MONO# 0.81 X1000 (0.11-0.59); MONO% 9.3 % (1.7-9.3); MPV 10.1 FL (7.4-10.4); NEUT% 68.9 % (42.2-75.2); PLT 658 X1000 (130-400); RBC 3.47 XMIL (4.2-5.4); RDW 18.9 % (11.5-14.5); WBC 8.71 X1000 (4.8-10.8)
[2018-08-11 10:38] LABS: AGAP 9; ALB/GLOB RATIO 0.6; ALBUMIN 2.6 g/dL (3.5-5.0); ALKALINE PHOSPHATASE 82 U/L (32-104); BANDS 2 % (0-1); BUN 6 mg/dL (8-22); CHLORIDE 97 mmol/L (98-107); COSMO 276; CREATININE 0.5 mg/dL (0.5-0.9); EOS 10 % (1-10); ESTIMATED GFR > 60; GLUCOSE 110 mg/dL (70-104); GOT 19 U/L (10-30); GPT 9 U/L (10-36); LYMPHS 20 % (21-51); POTASSIUM 3.8 mmol/L (3.5-5.1); SEGS 68 % (42-75); SODIUM 139 mmol/L (136-145); TCO2 33 mmol/L (25-35); TOTAL BILIRUBIN 0.32 mg/dL (0.20-1.00); TOTAL PROTEIN 6.9 g/dL (6.3-8.3)
--- NOTE | 2018-08-11 13:02 | PROGRESS NOTE ---
DATE: 08/11/2018 SUBJECTIVE: This patient has stated she is feeling better. Chief complaint of constipation. I will continue with Dulcolax suppository daily and docusate twice a day, and we will monitor. Otherwise, she is feeling a little bit better. OBJECTIVE: Vital signs: Temperature 98.7, pulse 100, respiratory rate 24, blood pressure 137/80, oxygen saturation 96 on 5 L nasal cannula. HEENT: Head normocephalic, no trauma, PERRLA. Neck: Supple. No JVD. Central trachea. Chest: Decreased breath sounds at the bases mostly with inspiratory crackles mostly at the bases. She has a left-sided pigtail attached to a drainage bag with some serosanguineous discharge. Cardiovascular: RRR, tachycardic. Abdomen: Soft, nontender, nondistended, no hepatosplenomegaly. Extremities: 1+ lower extremity edema. No clubbing, no cyanosis. Neurological: The patient is alert and oriented x3. No focal deficits. LABORATORY: WBC 8.7, hemoglobin 8, hematocrit 28.3, platelets 658. Sodium 139, potassium 3.8, chloride 97, bicarbonate 33, BUN 6, creatinine 0.6, glucose 110, calcium 8. AST 19, ALT 9, alkaline phosphatase 82, albumin 2.6. ASSESSMENT AND PLAN: 1. Sepsis likely secondary to streptococcal pneumonia and parapneumonic effusion, status post thoracentesis on 07/30/2018 and status post left-sided hydropneumothorax on August 01, which is likely postprocedural. She had a pigtail placed on the left side of the chest on August 10. She tolerated well the procedure. She is complaining of some pain around the pigtail. Will continue with antibiotics. 2. Hypoxemic respiratory failure with chronic hypercapnic respiratory failure. She seems to be more stable. Continue with the same management. Pulmonary department on board. 3. Microcytic anemia which likely is chronic. Continue with iron tablet. We will monitor the hemoglobin. 4. Chronic peripheral neuropathy and chronic pain. Continue with Suboxone and Lyrica. 5. DVT prophylaxis. This patient is on Lovenox. Continue with the same treatment. 6. Oral thrush. Continue with Mycelex troches while this patient is on antibiotics. 7. Hypokalemia, stable. 8. Constipation. Continue with the same management, p.o. treatment and suppositories. This patient seems to be doing a little bit better, but she is still having shortness of breath. Will continue with same management, continue with antibiotics. cc: Joseph Martins MD
--- NOTE | 2018-08-11 16:53 | Diag Imaging Result Doc PS360 ---
EXAM: ABDOMEN FLAT/UPRIGHT INDICATION: constipation with rectal pressure and severe pain TECHNIQUE: 3 views COMPARISON: None. FINDINGS: There is abundant stool in the rectum and colon suggesting at least moderate constipation. There is no obstructive bowel pattern. There is no evidence of large volume free abdominal gas. There has been a previous cholecystectomy. IMPRESSION: Suggestion of constipation as described. Electronically signed by Edmond Petit 08/11/2018 4:51 PM
[2018-08-11] MEDS: FOLIC ACID 1 MG in NS 50 ML IV SCH (19:48)
[2018-08-12] MEDS: TYLENOL PO PRN (00:55)
[2018-08-12] MEDS: SUBOXONE 8 MG/2 MG SL SCH ×3 (00:56→21:52)
[2018-08-12] MEDS: COLACE PO SCH ×3 (00:57→21:53)
[2018-08-12] MEDS: LYRICA PO SCH ×4 (00:57→21:52)
[2018-08-12] MEDS: MYCOSTATIN POWDER TOP SCH ×3 (00:57→22:58)
[2018-08-12] MEDS: ICAR-C PO SCH ×3 (00:57→21:53)
[2018-08-12] MEDS: PROTONIX IV SCH (01:01)
[2018-08-12] MEDS: SODIUM CHLORIDE 0.9% INJ SCH (01:01)
[2018-08-12] MEDS: DUONEB (A & A) INH SCH ×6 (03:10→23:10)
[2018-08-12] MEDS: MYCELEX TROCHE PO SCH ×4 (03:20→21:52)
[2018-08-12] MEDS: ROCEPHIN 2 GM in NS 50 ML IV SCH (03:20)
[2018-08-12] MEDS: LOVENOX SUBQ SCH (06:02)
[2018-08-12 06:04] LABS: BASO# 0.08 X1000 (0.0-0.2); BASO% 0.9 % (0.0-0.8); EOS# 0.33 X1000 (0.0-0.7); EOS% 3.8 % (0.0-10.0); HEMATOCRIT 27.8 % (37.0-47.0); HEMOGLOBIN 7.9 g/dL (12.0-16.0); IMM GRAN# 0.03 X1000 (0.0-0.04); IMM GRAN% 0.3 % (0.0-0.5); LYMPH# 1.77 X1000 (1.2-3.4); LYMPH% 20.6 % (20.5-51.1); MCH 23.2 PG (27-31); MCHC 28.4 g/dL (33-37); MCV 81.8 FL (81-99); MONO# 0.84 X1000 (0.11-0.59); MONO% 9.8 % (1.7-9.3); MPV 10.7 FL (7.4-10.4); NEUT# 5.54 X1000 (1.4-6.5); NEUT% 64.6 % (42.2-75.2); PLT 622 X1000 (130-400); RDW 18.9 % (11.5-14.5); WBC 8.59 X1000 (4.8-10.8)
[2018-08-12 06:30] LABS: AGAP 13; BUN 5 mg/dL (8-22); CALCIUM 8.6 mg/dL (8.8-10.2); CHLORIDE 99 mmol/L (98-107); COSMO 279; CREATININE 0.6 mg/dL (0.5-0.9); ESTIMATED GFR > 60; GLUCOSE 100 mg/dL (70-104); MAGNESIUM 1.8 mg/dL (1.5-2.7); POTASSIUM 3.8 mmol/L (3.5-5.1); SODIUM 141 mmol/L (136-145); TCO2 29 mmol/L (25-35)
--- NOTE | 2018-08-12 07:36 | INFECTIOUS DISEASE PROGRESS NO ---
DATE: 08/12/2018 PRESENT ILLNESS: The patient has a pneumococcal pneumonia with parapneumonic effusion. Yesterday the fluid was drained. MEDICATIONS: The patient has been on Rocephin for 18 days and vancomycin for 11 days. PHYSICAL EXAMINATION: Vital Signs: Temperature maximum was 102; all the rest of the temperatures were normal, and currently, most recent temperature is 98.6 degrees. Pulse is 102, respirations 18, blood pressure 114/68. General: This is a obese, lethargic, ill-appearing young female. She is in no acute distress. Head/Eyes/Ears/Nose/Throat: No drainage noted from the nose or ears. She does not have any white patches on her tongue. Neck: No stiffness. Thorax: The patient has a drainage tube on the left lower lateral part of the chest. The drain site is not erythematous, and there is no fluid coming around the drain. Lungs: Clear to auscultation. Cardiovascular: Heart rate is regular. Abdomen: Soft and not tender. Neurologic: The patient is lethargic. She is arousable though. She did move her extremities to request. Integument: No rash noted. Extremities: The patient has a PICC in her right arm. The site is not erythematous or tender. LABORATORY AND X-RAY: CBC shows a white count of 8590, hemoglobin 7.9, and platelet count 622,000. Repeat blood culture and the pleural fluid cultures are both negative. The x-ray of the abdomen shows constipation. The chest x-ray shows that the pleural drain is out of place, but the left pleural fluid and air have been drained well. ASSESSMENT AND PLAN: The patient has a parapneumonic pneumonia. She still is spiking fever. What I am going to do now is stop her current antibiotics, namely Rocephin and vancomycin, and put her on Zosyn in case there is some other infection that is present that is not being covered with the current antibiotics now. COMORBIDITIES: The patient is morbidly obese. cc: Carloz Antonio MD
[2018-08-12] MEDS: MUCOMYST 20% INH SCH ×3 (08:19→19:10)
--- NOTE | 2018-08-12 08:54 | PROGRESS NOTE ---
DATE: 08/12/2018 SUBJECTIVE: Dr. Raymond Schmidt in Radiology placed a 12-Tajik pigtail drain, left chest in the area of the hydro pneumothorax several days ago. The drain has drained serosanguineous fluid. It did not look purulent. There did not appear to be an air leak because the suction was maintained on this drain. The chest x-ray has improved since the drain has been placed. It is not draining that much, and this morning I removed the pigtail drain and a dressing was applied. She continues maximum pulmonary physiotherapy and IV antibiotics, and she is clinically improving slowly. cc: Mavis Wright MD
--- NOTE | 2018-08-12 08:56 | Diag Imaging Result Doc PS360 ---
EXAM: CHEST-1 VIEW 08/12/2018 HISTORY: SOB TECHNIQUE: AP portable at 0846 COMMENT: The tube in the pleural cavity on the left which was present on 08/11/2018 has been removed. There is no evidence of residual or recurrent loculated pneumothorax in this area although there are remaining loculations present which were separate from the drained area. There is still opacification of portions of both lower lobes. This is not changed appreciably. IMPRESSION: Pneumonia plus minus pulmonary edema with loculated left hydropneumothoraces. Electronically signed by See Benites 08/12/2018 8:54 AM
[2018-08-12] MEDS: ZOSYN 4.5 GM in NS 100 ML IV SCH ×3 (09:20→22:58)
[2018-08-12] MEDS: LASIX IV SCH (09:20)
[2018-08-12] MEDS: LIDODERM TOP SCH (09:20)
[2018-08-12] MEDS: DULCOLAX PR SCH (09:21)
--- NOTE | 2018-08-12 10:35 | PROGRESS NOTE ---
DATE: 08/12/2018 SUBJECTIVE: The patient is resting comfortably in bed, is still complaining of constipation even though she has been having some bowel movements. They are not watery, they are loose. The thoracic pigtail has been removed today. I have requested physical therapy and occupational therapy to evaluate this patient as well as CPT. OBJECTIVE: Vital Signs: Temperature 99 degrees, pulse 104, respiratory rate 20, blood pressure 149/83, and oxygen saturation 94% on 4 L of nasal cannula. HEENT: Head normocephalic. No trauma. PERRLA. Neck: Supple. No JVD. No masses. Central trachea. Chest: Decreased breath sounds at the bases with crepitus at the bases. Her left-sided pigtail attached to the drainage bag has been removed today. Cardiovascular: RRR. Tachycardic. Abdomen: Soft, nontender, and nondistended. No hepatosplenomegaly. Extremities: 1+ lower extremity mostly pedal edema. No clubbing. No cyanosis. Neurological: Alert and oriented x3. No focal deficits. LABORATORY: WBC 8.5, hemoglobin 7.9, hematocrit 27.8, and platelets 622,000. Sodium 141, potassium 3.8, chloride 99, bicarbonate 29, BUN 5 and creatinine 0.6. Glucose 100. Calcium 8.6, magnesium 1.8. ASSESSMENT AND PLAN: 1. Sepsis secondary to streptococcal pneumonia and parapneumonic effusion. She is status post thoracentesis on 07/30/2018 and status post left-sided pneumothorax on 08/01 for which she is likely post procedural. She had a pigtail that has been removed today. We will continue to monitor. 2. Hypoxemic respiratory failure with chronic hypercapnic respiratory failure. She seems to be more stable. Pulmonary department on board. Continue to monitor. 3. Microcytic anemia which is likely chronic. Continue with iron tablets. Continue to monitor. 4. Chronic peripheral neuropathy and chronic pain. Continue with Suboxone and Lyrica. 5. Deep vein thrombosis prophylaxis. This patient is on Lovenox. Continue with the same management. 6. Oral thrush. Continue with Mycelex troches while the patient is on antibiotics. 7. Hypokalemia stable. 8. Constipation. Continue with the same management and p.o. treatment suppository. I will get a get an abdominal x-ray in the morning. 9. Physical deconditioning. I have requested physical therapy and occupational therapy. Also, I have requested CPT for this patient. cc: Joseph Martins MD
[2018-08-12] MEDS ORDERED: ZOFRAN IV PRN (14:00)
[2018-08-12] MEDS: FOLIC ACID 1 MG in NS 50 ML IV SCH (21:52)
[2018-08-13] MEDS ORDERED: SODIUM CHLORIDE 0.9% INJ SCH (01:00)
[2018-08-13] MEDS: MYCELEX TROCHE PO SCH ×4 (03:03→19:44)
[2018-08-13] MEDS: DUONEB (A & A) INH SCH ×6 (03:10→23:20)
[2018-08-13] MEDS: ZOSYN 4.5 GM in NS 100 ML IV SCH ×4 (04:43→20:45)
[2018-08-13 05:57] LABS: AGAP 10; BUN 5 mg/dL (8-22); CALCIUM 8.7 mg/dL (8.8-10.2); CHLORIDE 95 mmol/L (98-107); COSMO 272; CREATININE 0.5 mg/dL (0.5-0.9); ESTIMATED GFR > 60; GLUCOSE 108 mg/dL (70-104); HEMATOCRIT 27.6 % (37.0-47.0); HEMOGLOBIN 7.9 g/dL (12.0-16.0); MCH 23.6 PG (27-31); MCHC 28.6 g/dL (33-37); MCV 82.4 FL (81-99); MPV 10.9 FL (7.4-10.4); POTASSIUM 3.2 mmol/L (3.5-5.1); RBC 3.35 XMIL (4.2-5.4); RDW 18.7 % (11.5-14.5); SODIUM 137 mmol/L (136-145); TCO2 32 mmol/L (25-35); WBC 8.94 X1000 (4.8-10.8)
[2018-08-13] MEDS: LOVENOX SUBQ SCH (06:06)
[2018-08-13] MEDS: PROTONIX IV SCH (06:06)
[2018-08-13] MEDS: MUCOMYST 20% INH SCH ×3 (08:15→19:13)
[2018-08-13] MEDS: DULCOLAX PR SCH ×2 (08:50→08:56)
[2018-08-13] MEDS: SUBOXONE 8 MG/2 MG SL SCH ×2 (08:50→20:45)
[2018-08-13] MEDS: COLACE PO SCH (08:50)
[2018-08-13] MEDS: LIDODERM TOP SCH (08:50)
[2018-08-13] MEDS: LYRICA PO SCH ×3 (08:50→20:46)
[2018-08-13] MEDS ORDERED: KLOR-CON PO ONE (08:50)
[2018-08-13] MEDS: LASIX IV SCH (08:50)
[2018-08-13] MEDS: ICAR-C PO SCH ×2 (08:50→20:45)
[2018-08-13] MEDS: MYCOSTATIN POWDER TOP SCH ×2 (08:51→21:40)
--- NOTE | 2018-08-13 09:22 | Diag Imaging Result Doc PS360 ---
EXAM: CHEST-1 VIEW 08/13/2018 HISTORY: SOB TECHNIQUE: AP upright at 0909 COMMENT: There has been no appreciable change since 08/12/2018. There is still alveolar opacity in both lower lung aiken and loculated pleural collections on the left. IMPRESSION: Bibasilar atelectasis versus pneumonia. Electronically signed by See Benites 08/13/2018 9:20 AM
--- NOTE | 2018-08-13 09:23 | Diag Imaging Result Doc PS360 ---
EXAM: ABDOMEN FLAT/UPRIGHT 08/13/2018 HISTORY: pain TECHNIQUE: Flat and upright abdomen COMMENT: There is stool throughout the colon with a fairly large amount of stool in the rectum. The small bowel and stomach are not distended. Compared to 08/11/2018 there has been no appreciable change. IMPRESSION: Constipation. Electronically signed by See Benites 08/13/2018 9:21 AM
--- NOTE | 2018-08-13 10:26 | PROGRESS NOTE ---
DATE: 08/13/2018 SUBJECTIVE: This patient is still complaining of constipation. We had an x-ray that corroborated that information, we will go ahead and use 2 enemas today. I will change the stool softener from docusate to lactulose to see if that helps also. Yesterday, she was still having fever. The antibiotics were rotated from vancomycin and Rocephin to Zosyn. She is hypokalemic today and I will replace the potassium. Urine output looks okay. OBJECTIVE: Vital Signs: Temperature 98.1 degrees, pulse 86, respiratory rate 20, blood pressure 127/94, oxygen saturation 94% on 4 L of nasal cannula. HEENT: Head normocephalic. No trauma. PERRLA. Neck: Supple. No JVD. No masses. Central trachea. Chest: Decreased breath sounds at the bases with crepitus and some rhonchi. Cardiovascular: RRR. Tachycardic. Abdomen: Soft, nontender, nondistended. No hepatosplenomegaly. Extremities: 1+ extremity edema. No clubbing. No cyanosis. Neurological: The patient is alert and oriented x3. No focal deficits. LABORATORY: WBC 8.9, hemoglobin 7.9, hematocrit 27.6, platelet 602,000. Sodium 137, potassium 3.2, chloride 95, bicarbonate 32, BUN 5, creatinine 0.5, glucose 108, calcium 8.7. ASSESSMENT AND PLAN: 1. Sepsis secondary to streptococcal pneumonia and parapneumonic effusion status post thoracentesis on 07/30/2018 and status post left-sided pneumothorax on 08/01/2018, which is likely post procedural. A pigtail has been placed on the left side and already removed a couple days ago. We will continue to monitor. She is not complaining of shortness of breath today. 2. Hypoxemic respiratory failure with chronic hypercapnic respiratory failure. She seems to be more stable. Pulmonary department on board. Continue to monitor. 3. Constipation. I will use 2 enemas today and I will put this patient on lactulose. 4. Microcytic anemia, likely chronic, continue with iron tablets. 5. Deep vein thrombosis prophylaxis. Continue with Lovenox. 6. Oral thrush. Continue with Mycelex troches while the patient is on antibiotics. 7. Hypokalemia. I will replace the potassium today. 8. Physical deconditioning. Continue physical therapy and occupational therapy. 9. This patient is still having fever, not today, but yesterday. Antibiotics were switched to Zosyn like I mentioned before. cc: Joseph Martins MD
[2018-08-13] MEDS ORDERED: GLYCERIN ADULT PR ONE (13:54)
[2018-08-13] MEDS ORDERED: GOLYTELY PO ONE (13:57)
[2018-08-13] MEDS: FOLIC ACID 1 MG in NS 50 ML IV SCH (19:44)
[2018-08-13] MEDS ORDERED: LACTULOSE PO SCH (21:00)
[2018-08-14] MEDS: ZOSYN 4.5 GM in NS 100 ML IV SCH ×4 (03:18→22:32)
[2018-08-14] MEDS: MYCELEX TROCHE PO SCH ×4 (03:18→21:07)
[2018-08-14] MEDS: DUONEB (A & A) INH SCH ×6 (03:20→22:55)
[2018-08-14] MEDS: LOVENOX SUBQ SCH (05:32)
[2018-08-14] MEDS: PROTONIX IV SCH (05:32)
[2018-08-14 05:49] LABS: BASO# 0.08 X1000 (0.0-0.2); BASO% 0.9 % (0.0-0.8); EOS# 0.46 X1000 (0.0-0.7); HEMATOCRIT 29.3 % (37.0-47.0); HEMOGLOBIN 8.3 g/dL (12.0-16.0); IMM GRAN# 0.02 X1000 (0.0-0.04); IMM GRAN% 0.2 % (0.0-0.5); LYMPH# 2.02 X1000 (1.2-3.4); LYMPH% 21.8 % (20.5-51.1); MCH 23.2 PG (27-31); MCHC 28.3 g/dL (33-37); MCV 81.8 FL (81-99); MONO# 1.08 X1000 (0.11-0.59); MONO% 11.6 % (1.7-9.3); MPV 10.9 FL (7.4-10.4); NEUT# 5.62 X1000 (1.4-6.5); NEUT% 60.5 % (42.2-75.2); PLT 611 X1000 (130-400); RBC 3.58 XMIL (4.2-5.4); RDW 18.7 % (11.5-14.5); WBC 9.28 X1000 (4.8-10.8)
[2018-08-14 06:37] LABS: AGAP 14; BUN 6 mg/dL (8-22); CALCIUM 9.1 mg/dL (8.8-10.2); CHLORIDE 95 mmol/L (98-107); COSMO 276; CREATININE 0.6 mg/dL (0.5-0.9); ESTIMATED GFR > 60; GLUCOSE 105 mg/dL (70-104); MAGNESIUM 1.8 mg/dL (1.5-2.7); POTASSIUM 3.2 mmol/L (3.5-5.1); SODIUM 139 mmol/L (136-145); TCO2 30 mmol/L (25-35)
--- NOTE | 2018-08-14 07:40 | Diag Imaging Result Doc PS360 ---
EXAM: CHEST-1 VIEW 08/14/2018 HISTORY: SOB TECHNIQUE: AP portable at 0546 COMMENT: The coarse opacities and pleural gas collections on the left are again noted and have not changed significantly since 08/13/2018. The right PICC line remains with its tip in the superior vena cava. IMPRESSION: Atelectasis versus pneumonia with pleural changes on the left, stable. Electronically signed by See Benites 08/14/2018 7:37 AM
[2018-08-14] MEDS: MUCOMYST 20% INH SCH ×4 (07:56→19:59)
[2018-08-14] MEDS ORDERED: KLOR-CON PO ONE (08:03)
[2018-08-14] MEDS: SUBOXONE 8 MG/2 MG SL SCH ×2 (08:36→21:06)
[2018-08-14] MEDS: LASIX IV SCH (08:36)
[2018-08-14] MEDS: LYRICA PO SCH ×3 (08:37→21:07)
[2018-08-14] MEDS: LACTULOSE PO SCH (08:37)
[2018-08-14] MEDS: LIDODERM TOP SCH (08:37)
[2018-08-14] MEDS: ICAR-C PO SCH ×2 (08:37→21:14)
[2018-08-14] MEDS: DULCOLAX PR SCH (08:38)
[2018-08-14] MEDS: MYCOSTATIN POWDER TOP SCH ×2 (08:38→22:32)
[2018-08-14] MEDS ORDERED: LACTULOSE PO SCH (09:00)
--- NOTE | 2018-08-14 10:19 | PROGRESS NOTE ---
DATE: 08/14/2018 SUBJECTIVE: This patient has been having bowel movements. Yesterday, she was constipated and after treatment, this problem resolved. She is feeling better today. I believe we need to be a little bit more constant with physical therapy and occupational therapy. She had an episode of low-grade fever at midnight. I will continue with antibiotics. I will continue with the same management for now. OBJECTIVE: Vital Signs: Temperature 98.2 degrees, pulse 98, respiratory rate 16, blood pressure 127/72, oxygen saturation 93 on 5 L of nasal cannula. HEENT: Head normocephalic. No trauma. PERRLA. Neck: Supple. No JVD. No masses. Central trachea. Chest: Decreased breath sounds at the bases with crepitus and rhonchi at the bases as well. Cardiovascular: RRR. Abdomen: Soft, nontender, nondistended. No hepatosplenomegaly. Extremities: There is 1+ extremity edema. No clubbing. No cyanosis. Neurological Examination: The patient is alert and oriented x3. No focal deficits. Laboratory: WBC 9.2, hemoglobin 8.3, hematocrit 29.3, platelets 611,000. Sodium 139, potassium 3.2, chloride 95, bicarbonate 30, BUN 6, creatinine 0.6, glucose 105, calcium 9.1, magnesium 1.0. ASSESSMENT AND PLAN: 1. Sepsis secondary to streptococcal pneumonia and parapneumonic effusion, status post thoracentesis on 07/30/2018 and status post left-sided pneumothorax on 08/01/2018 which is likely postprocedural. A pigtail had been placed on the left side and then removed a few days ago. We will continue to monitor. She is not complaining of chest pain. She is complaining of shortness of breath, mostly with physical activity. She still required oxygen and she is on 5 L at this moment. 2. Hypoxemic respiratory failure with chronic hypercapnic respiratory failure. She seems to be more stable. Pulmonary department on board. We will continue to monitor. Will need to do more physical activity. 3. Constipation, resolved. Continue with lactulose but I believe the patient has been refusing that treatment. I will discuss again with the patient to see if she would like to have any other options. 4. Microcytic anemia, likely chronic. Continue with iron tablets. 5. Deep vein thrombosis prophylaxis with Lovenox. 6. Oral thrush. Continue with Mycelex Troches while the patient is on antibiotics. 7. Hypokalemia. I will replace the potassium today. 8. Physical deconditioning. Continue physical therapy and occupational therapy. 9. This patient is still having low-grade fever, today at midnight. Antibiotics were switched recently. Infectious disease department on board. We will continue to monitor. cc: Joseph Martins MD
[2018-08-14] MEDS: FOLIC ACID 1 MG in NS 50 ML IV SCH (21:07)
[2018-08-15] MEDS: ZOSYN 4.5 GM in NS 100 ML IV SCH ×4 (03:36→22:24)
[2018-08-15] MEDS: MYCELEX TROCHE PO SCH ×4 (03:49→22:29)
[2018-08-15] MEDS: DUONEB (A & A) INH SCH ×6 (03:49→23:59)
[2018-08-15] MEDS: PROTONIX IV SCH (06:41)
[2018-08-15] MEDS: LOVENOX SUBQ SCH (06:41)
[2018-08-15] MEDS: MUCOMYST 20% INH SCH ×3 (07:34→19:51)
--- NOTE | 2018-08-15 07:45 | Diag Imaging Result Doc PS360 ---
EXAM: CHEST-1 VIEW INDICATION: SOB TECHNIQUE: One view COMPARISON: 08/14/2018 FINDINGS: The right PICC line is in stable position. The loculated hydropneumothorax on the left is unchanged. There is a small right pleural effusion that is also stable. Bibasilar atelectasis and/or infiltrate is stable. No new consolidation is identified. Cardiac silhouette is stable. IMPRESSION: Stable chest. Electronically signed by Edmond Petit 08/15/2018 7:43 AM
[2018-08-15 07:56] LABS: BASO% 1.3 % (0.0-0.8); EOS# 0.41 X1000 (0.0-0.7); EOS% 5.2 % (0.0-10.0); HEMATOCRIT 28.4 % (37.0-47.0); HEMOGLOBIN 7.9 g/dL (12.0-16.0); LYMPH% 19.1 % (20.5-51.1); MCHC 27.8 g/dL (33-37); MCV 82.6 FL (81-99); MONO# 0.75 X1000 (0.11-0.59); MONO% 9.6 % (1.7-9.3); MPV 10.4 FL (7.4-10.4); NEUT# 5.08 X1000 (1.4-6.5); NEUT% 64.8 % (42.2-75.2); PLT 561 X1000 (130-400); RBC 3.44 XMIL (4.2-5.4); RDW 18.3 % (11.5-14.5); WBC 7.84 X1000 (4.8-10.8)
[2018-08-15 08:18] LABS: AGAP 12; BUN 4 mg/dL (8-22); CHLORIDE 96 mmol/L (98-107); COSMO 277; CREATININE 0.5 mg/dL (0.5-0.9); ESTIMATED GFR > 60; GLUCOSE 104 mg/dL (70-104); POTASSIUM 3.3 mmol/L (3.5-5.1); SODIUM 140 mmol/L (136-145); TCO2 32 mmol/L (25-35)
[2018-08-15 08:29] LABS: ANISOCYTOSIS 1+; BANDS 4 % (0-1); HYPOCHROM 2+; LYMPHS 18 % (21-51); MONO 4 % (1-9); SEGS 74 % (42-75)
[2018-08-15] MEDS: LIDODERM TOP SCH (08:42)
[2018-08-15] MEDS: SUBOXONE 8 MG/2 MG SL SCH ×2 (08:42→22:28)
[2018-08-15] MEDS: LACTULOSE PO SCH ×2 (08:42→08:45)
[2018-08-15] MEDS: ICAR-C PO SCH ×2 (08:42→22:29)
[2018-08-15] MEDS: LASIX IV SCH (08:42)
[2018-08-15] MEDS: LYRICA PO SCH ×3 (08:42→22:29)
[2018-08-15] MEDS: DULCOLAX PR SCH (09:59)
[2018-08-15] MEDS: MYCOSTATIN POWDER TOP SCH ×2 (10:14→22:30)
[2018-08-15] MEDS: FOLIC ACID 1 MG in NS 50 ML IV SCH (22:19)
--- NOTE | 2018-08-15 23:16 | INFECTIOUS DISEASE PROGRESS NO ---
DATE: 08/15/2018 The patient had a pneumococcal pneumonia with a parapneumonic effusion. This has been drained. She was continuing to have fever and now over the past 2 to 3 days she has not had anymore fever. MEDICATIONS: The patient is currently on Zosyn. The patient has been on Zosyn now for 3 days. PHYSICAL EXAMINATION: Vital Signs: Temperature is 98.3 degrees, pulse 101, respirations 18, blood pressure 138/82. General: This is an obese, young female. She is in no acute distress and she is much more alert today. She is able to ambulate. Head/eyes/ears/nose/throat: She can hear my spoken words and see near objects. She does not have any white coating of her tongue. Neck: No meningismus. Lungs: Clear to auscultation. Cardiovascular: Heart rate is regular. Abdomen: Soft and nontender. Thorax: The patient's drain is out. Neurologic: Patient is alert. She can move her extremities. There is no tremor. She walks without difficulty. LAB AND X-RAY: Chest x-ray shows bibasilar infiltrates. CBC shows a white count of 7840, hemoglobin 7.9, and platelet count 561,000. Creatinine is 0.5. GFR is greater than 60. ASSESSMENT AND PLAN: Patient has a pneumococcal pneumonia and parapneumonic effusion. The fever has cleared since the patient was put on Zosyn and the effusion drained. I plan to continue with Zosyn. COMORBIDITIES: The patient is obese. cc: Carloz Antonio MD
[2018-08-16] MEDS: ZOSYN 4.5 GM in NS 100 ML IV SCH ×4 (03:26→23:40)
[2018-08-16] MEDS: MYCELEX TROCHE PO SCH ×4 (03:26→22:08)
[2018-08-16] MEDS: DUONEB (A & A) INH SCH ×6 (03:38→22:50)
[2018-08-16] MEDS: PROTONIX IV SCH (05:39)
[2018-08-16] MEDS: LOVENOX SUBQ SCH (05:39)
--- NOTE | 2018-08-16 07:02 | Diag Imaging Result Doc PS360 ---
EXAM: CHEST-1 VIEW 08/16/2018 HISTORY: SOB TECHNIQUE: AP portable at 0602 COMMENT: There is coarse opacity present in both lung bases particularly the left lower lobe. There is been no appreciable change since 08/15/2018. There may be slight improvement since 08/13/2018. IMPRESSION: Bibasilar atelectasis versus pneumonia particularly in the left lower lobe. Electronically signed by See Benites 08/16/2018 7:00 AM
[2018-08-16] MEDS: MUCOMYST 20% INH SCH ×4 (07:50→19:45)
[2018-08-16] MEDS: LYRICA PO SCH ×3 (09:35→22:09)
[2018-08-16] MEDS: LASIX IV SCH (09:35)
[2018-08-16] MEDS: ICAR-C PO SCH ×2 (09:35→22:09)
[2018-08-16] MEDS: LIDODERM TOP SCH (09:36)
[2018-08-16] MEDS: SUBOXONE 8 MG/2 MG SL SCH ×2 (09:36→22:08)
[2018-08-16] MEDS: LACTULOSE PO SCH (09:37)
[2018-08-16] MEDS: DULCOLAX PR SCH (09:38)
[2018-08-16] MEDS ORDERED: KLOR-CON PO ONE (09:58)
--- NOTE | 2018-08-16 11:01 | PROGRESS NOTE ---
DATE: 08/16/2018 SUBJECTIVE: This patient is feeling better, but she gets short of breath every time she does any kind of physical activity. She is having bowel movements. She is urinating with any kind of problems as well. Her hemoglobin is 7.9 and for now, we will monitor. We will continue physical therapy. Likely, this patient will be discharged in the next 24 to 48 hours. I already discussed the case with Pulmonary Department and Infectious Disease Department. They both will follow this patient as an outpatient. Case has been discussed also with the oncology social worker to see if we can help this patient with the medications and probably, she will need oxygen as well. OBJECTIVE: Vital Signs: Temperature 97.7 degrees, pulse 93, respiratory rate 18, blood pressure 117/66, oxygen saturation 94% on 3 L of nasal cannula. HEENT: Head normocephalic. No trauma. PERRLA. Neck: Supple. I cannot see JVD because of her neck size. Central trachea. Chest: Decreased breath sounds mostly at the bases with crepitus and rhonchi at the bases as well. Cardiovascular: RRR. Abdomen: Soft, nontender, nondistended. No hepatosplenomegaly. Extremities: 1+ lower extremity edema. No clubbing. No cyanosis. Neurological: The patient is alert and oriented x3. No focal deficits. LABORATORY: WBC 7.8, hemoglobin 7.9, hematocrit 28.4, platelets 561,000. Sodium 140, potassium 3.3, chloride 96, bicarbonate 32, BUN 4, creatinine 0.5, glucose 104, calcium 9. ASSESSMENT AND PLAN: 1. Sepsis secondary to streptococcal pneumonia and parapneumonic effusion status post thoracentesis on 07/30/2018, status post left-sided pneumothorax on 08/01/2018, which is likely post procedural. Pigtail has been placed and removed as well a few days ago. Chest x- ray looks better. She is not complaining of chest pain at this moment. She is complaining of shortness of breath with physical activity. She will probably require oxygen to go home. At this moment, she is using 3 L. 2. Hypoxemic respiratory failure with chronic hypercapnic respiratory failure. She seems to be more stable pulmonary department on board. We will continue to monitor. Will need more physical therapy. She needs to lose weight as well. 3. Constipation, resolved. 4. Microcytic anemia, likely chronic. Continue with iron tablets. 5. Deep vein thrombosis prophylaxis with Lovenox. 6. Oral thrush. Continue with the Mycelex Troches, while this patient is on antibiotics. 7. Hypokalemia. I will replace the potassium today. 8. Physical deconditioning. Continue physical therapy and occupational therapy. cc: Joseph Martins MD
[2018-08-16] MEDS: MYCOSTATIN POWDER TOP SCH ×2 (12:32→22:12)
--- NOTE | 2018-08-16 14:51 | INFECTIOUS DISEASE PROGRESS NO ---
DATE: 08/16/2018 PRESENT ILLNESS: The patient has a pneumococcal pneumonia with parapneumonic effusion. The effusion has been drained. The patient had been running fever but recently since she was put on Zosyn she has not had any further fever. MEDICATION: The patient is on Zosyn as a single agent. PHYSICAL EXAMINATION: Vital Signs: Temperature is 98 degrees, pulse 93, respirations 18, blood pressure 120/60. General: This is an obese, young female. She is in no acute distress. Head, eyes, ears, nose, throat: She can hear my spoken words and see near objects. She does not have any white patches on her tongue. Neck: No stiffness. Lungs: There were diminished breath sounds, but I did not hear any rales or rhonchi. Cardiovascular: Heart rate is regular. Abdomen: Soft and nontender. Thorax: The drain site is healing up well. It is not swollen, red, or draining. Abdomen: Soft and nontender. Neurologic: Patient is alert. She ambulates without difficulty. LAB AND X-RAY: Chest x-ray shows bibasilar pneumonia versus atelectasis. Creatinine is 0.5. GFR is greater than 60. CBC shows a white count of 7,840, hemoglobin 7.9, and platelet count 561,000. ASSESSMENT AND PLAN: The patient has pneumococcal pneumonia with parapneumonic effusion. Her fever has cleared. The plan is to send the patient home tomorrow on a combination of Augmentin and Levaquin for a week. By the end of that treatment the patient will have had 29 days of antibiotics. I have requested that the patient come to my office for an appointment in 1 week. At that time, the patient will be examined and a repeat chest x-ray will be taken. COMORBIDITIES: The only one is, is that she is obese. cc: Carloz Antonio MD MTDD
[2018-08-16] MEDS ORDERED: STERILE WATER INJ. INJ ONE (15:26)
[2018-08-16] MEDS ORDERED: CATHFLO IV ONE (15:26)
[2018-08-16] MEDS: FOLIC ACID 1 MG in NS 50 ML IV SCH (22:05)
[2018-08-17] MEDS: MYCELEX TROCHE PO SCH ×3 (02:27→14:47)
[2018-08-17] MEDS: ZOSYN 4.5 GM in NS 100 ML IV SCH ×2 (02:30→10:30)
[2018-08-17] MEDS: DUONEB (A & A) INH SCH ×4 (03:00→15:42)
[2018-08-17] MEDS: LOVENOX SUBQ SCH (06:50)
[2018-08-17] MEDS ORDERED: PROTONIX PO SCH (07:00)
[2018-08-17] MEDS: MUCOMYST 20% INH SCH (07:25)
[2018-08-17 07:27] VITALS: BP 106/68
--- NOTE | 2018-08-17 07:32 | Diag Imaging Result Doc PS360 ---
EXAM: CHEST-1 VIEW HISTORY: SOB TECHNIQUE: Portable chest single view COMPARISON: 08/16/2018 FINDINGS: Poor inspiratory effort with basilar atelectasis. There is also vascular distention and possibly underlying infiltrates on the left. There may be several small cavities in the lower lateral left hemithorax. This is similar to the prior study. There is a small amount of pleural fluid. IMPRESSION: No interval improvement. Electronically signed by Emile Hou 08/17/2018 7:30 AM
[2018-08-17] MEDS: LIDODERM TOP SCH (08:51)
[2018-08-17] MEDS: LACTULOSE PO SCH (08:52)
[2018-08-17] MEDS: SUBOXONE 8 MG/2 MG SL SCH (08:52)
[2018-08-17] MEDS: LYRICA PO SCH ×2 (08:52→14:47)
[2018-08-17] MEDS: ICAR-C PO SCH (08:52)
[2018-08-17] MEDS: LASIX IV SCH (08:52)
[2018-08-17 09:31] LABS: HEMATOCRIT 29.9 % (37.0-47.0); HEMOGLOBIN 8.4 g/dL (12.0-16.0)
[2018-08-17 10:07] LABS: AGAP 11; BUN 3 mg/dL (8-22); CHLORIDE 98 mmol/L (98-107); COSMO 276; CREATININE 0.5 mg/dL (0.5-0.9); ESTIMATED GFR > 60; GLUCOSE 100 mg/dL (70-104); POTASSIUM 3.6 mmol/L (3.5-5.1); SODIUM 140 mmol/L (136-145); TCO2 31 mmol/L (25-35)
[2018-08-17] MEDS: DULCOLAX PR SCH (10:16)
[2018-08-17] MEDS: MYCOSTATIN POWDER TOP SCH (11:43)
[2018-08-17] MEDS ORDERED: PNEUMOVAX 23 IM ONE (13:54)
--- NOTE | 2018-08-17 14:59 | INFECTIOUS DISEASE PROGRESS NO ---
DATE: 08/17/2018 Ms. Singh is being discharged today. She is allergic to amoxicillin, so we will send her home on Levaquin 500 mg by mouth daily for 14 days and Flagyl 500 mg every 8 hours for 14 days and then see her back in our office in 2 weeks. These plans have been discussed with and recommended by Dr. Antonio. When the patient completes her antibiotics she will have received 5 weeks antibiotic treatment. Dictated by JEN Londono for Carloz Antonio MD This chart was documented by, JEN Londono and accurately reflects the services performed, treatment plan and medical decisions as attested by the providers signature Carloz Antonio MD. cc: Carloz Antonio MD MTDArnulfo
--- NOTE | 2018-08-18 05:05 | DISCHARGE SUMMARY ---
ADMISSION DATE: 07/25/2018 DISCHARGE DATE: 08/17/2018 DISCHARGE DIAGNOSES: 1. Sepsis secondary to streptococcal pneumonia and parapneumonic effusion status post thoracentesis on 07/30/2018 complicated with left-sided pneumothorax on 08/01/2018. 2. Hypoxemic respiratory failure with chronic hypercapnic respiratory failure. 3. Streptococcal pneumonia. 4. Constipation. 5. Microcytic anemia. 6. Oral thrush. 7. Hypokalemia. 8. Morbid obesity with a body mass index of 49.4. 9. Chronic pain disorder. HOSPITAL COURSE: A 37-year-old female with a past medical history of chronic pain and obesity, who presented to [facility] with progressive shortness of breath for a week, productive cough with greenish sputum, pleurisy with chest pain with shortness of breath that has been getting worse. In the emergency department, she was found to have pneumonia, leukocytosis. She was admitted due to respiratory failure also. She was placed on empiric antibiotics, pulmonary toilet, nebulizer, and Mucomyst. She does have some pulmonary edema. No history of heart failure. For her pain, we will continue with her Suboxone. Since this patient was not improving, we asked for a CT scan that showed bilateral pleural effusion and dense consolidation bilaterally compatible with multilobar pneumonia. Diuresis was initiated, and we started discussing the patient with Pulmonary Department. For her hypoxemic respiratory failure, that was likely a combination of several issues. Then she was transferred to the ICU, where she was still hypoxemic. She was tachycardic. She was tachypneic, so we decided to transfer this patient to [facility] for evaluation by Pulmonary Department and Infectious Disease Department. Upon examination with pulmonary department, they agree with the continuation with antibiotics and diuretics. They believed that the bilateral pleural effusion was likely empyema, and they agree with thoracentesis. But the size of the left pleural effusion was small in relation to the opacifications seen on the plain film and thoracentesis at that time on 07/28/2018, was not performed. Infectious Disease Department evaluated this patient, and they agree with treating this patient with cefepime. They discontinued Zyvox and azithromycin, and they placed this patient on vancomycin. They ordered a streptococcal urinary antigen, test, and immunoglobulin level. The streptococcal urinary antigen has been positive. Because of the thoracentesis was aborted, we consulted the surgery department to do a left-sided thoracentesis versus a left chest tube placement and the thoracentesis was done on 07/30/2018, where about 600 mL of fluid from the left chest has been removed. We sent that to the laboratory but no bacteria grew. The patient has been on antibiotics since the first day and probably, that is the reason why no bacteria was seen. The cefepime and vancomycin has been stopped, and we started this patient on Rocephin because of her pneumococcal pneumonia with associated parapneumonic effusion. On 08/01/2018, we did a CT scan that showed development of several air fluid levels in the large multiloculated left pleural effusion. This is suggestive of infection or bronchopleural fistula, also worsening of right pleural effusion and extensive bilateral pneumonia. We were considering VATS for this patient, but because of her weight, has not been done and we tried to use a CT- guided pigtail catheter for any fluid drainage on the left chest per Radiology if needed. We also suggested physical therapy to start working on this patient and encourage p.o. intake. In the meantime, will continue with vancomycin and Rocephin. As a point of the hospitalization, we saw the evidence of hydropneumothorax that was probably due to the procedure performed, but that has been getting better on a daily basis, only showing a small apical pneumothorax. The patient also presented some oral lesions probably related with oral thrush, and we started this patient on Mycelex troches while this patient was here on antibiotics. Then the patient was severely constipated. We tried multiple procedures including enema suppositories and of course, laxatives. She finally started having bowel movements after using lactulose. The patient was improving on a daily basis. Since then, WBC was still somewhat elevated. We changed the ceftriaxone and vancomycin to Zosyn. After that, the WBC improved and actually has been normal for at least 1 week. Today, I ask for home O2 evaluation, and it looks like this patient does not need oxygen to go home. I discussed the case with Dr. Bains, and he will follow up this patient as an outpatient in 2 weeks. Also, I discussed the case with Infectious Disease Department, who suggested to discharge this patient with levofloxacin and Flagyl. This patient will be discharged home. She refused to go to a rehab center. She is not complaining of shortness of breath. We will try to help her to get her medications. healthcare social worker on board. PHYSICAL EXAMINATION: Vital signs: Temperature 98.1 degrees, pulse 105, respiratory rate 20, blood pressure 106/68, oxygen saturation 93 on room air. HEENT: Head normocephalic. No trauma. PERRLA. Neck: Supple. No JVD. No masses. Central trachea. Chest: Decreased breath sounds at the bases with some crepitus at the bases as well. Cardiovascular: RRR. Slightly tachycardic. Abdomen: Soft, obese, nontender, nondistended. No hepatosplenomegaly. Extremities: 1+ lower extremity edema. No clubbing. No cyanosis. Neurological: The patient is alert and oriented x3. No focal deficits. LABORATORY: Hemoglobin 8.4, hematocrit 29.9. Sodium 140, potassium 3.6, chloride 98, bicarbonate 31, BUN 3, creatinine 0.5, glucose 100, calcium 9. DISCHARGE MEDICATIONS: Lyrica 50 mg p.o. daily, Librium 10 mg p.o. t.i.d. as needed, Suboxone 8 mg/2 mg one tablet sublingual b.i.d., Protonix 40 mg p.o. daily, Flagyl 500 mg p.o. q.8 hours, levofloxacin 500 mg p.o. daily, lactulose 30 mg p.o. daily, Icar C one tablet p.o. twice a day, furosemide 40 mg p.o. daily, Ventolin HFA 2 puff inhaler inhaled q.6 hours as needed for shortness of breath, Tylenol 650 mg p.o. q.6 hours as needed for fever. TIME DISCHARGING THIS PATIENT: 35 minutes. cc: Joseph Martins MD
== END 2018-08-17 15:45 | disposition home or self-care (01) | DRG 871 ==
LOC: P.ED 13:00 → SUATTDRO 18:53 → P.MEDSURG 18:53 → P.ICU 07-27 00:39 → 3S 07-28 17:31 → ICU 08-01 13:26 → 3S 08-04 01:00 → 3N 08-14 11:40
PROVIDERS: ATTEND Internal Medicine
CPT/HCPCS: 32557; 36415; 36569; 71010; 71020; 71045; 71046; 71250; 71260; 74019; 74020; 76604; 80048; 80053; 80202; 81001; 81025; 82330; 82607; 82728; 82746; 82784; 82805; 82945; 82947; 82948; 83540; 83550; 83605; 83615; 83735; 83880; 83986; 84100; 84132; 84157; 84295; 85014; 85018; 85025; 85027; 85610; 85730; 86701; 87040; 87070; 87088; 87116; 87205; 87206; 87389; 87899; 89051; 90732; 93005; 93010; 93306; 94640; 94660; 94667; 94668; 94761; 94762; 96365; 96375; 97110; 97116; 97162; 97165; 97530; 99285; A9270; C8929; C9113; J0330; J0456; J0592; J0692; J0696; J1650; J1756; J1940; J2020; J2250; J2270; J2300; J2405; J2543; J2997; J3370; J3480; J7030; J7040; J7050; Q9957; Q9967; S0164; XXXXX

== ENCOUNTER 2018-08-20 12:56 | Inpatient (IN) ==
[2018-08-20 13:40] LABS: ALLEN TEST NO; BE 8.7 mmoll (-3.0-3.0); BLOOD TYPE ARTERIAL; HCO3-(ACT) 31.7 mmoll (20.0-26.0); METHB 1.3 % (0.0-1.5); O2(CT) 13.4 mL/dL (15.0-23.0); O2HB 95.6 % (95.0-99.0); PCO2(98.6) 34 mmHg (35-45); PO2(98.6) 150 mmHg (60-100); SAMPLE BLOOD; SAO2 98.7 % (95.0-100.0); THB 9.7 g/dL (11.5-17.4)
[2018-08-20 13:41] LABS: MODALITY ROOM AIR
[2018-08-20 13:43] LABS: pH(98.6) 7.57 (7.35-7.45)
--- NOTE | 2018-08-20 14:17 | Diag Imaging Result Doc PS360 ---
CHEST-2 VIEWS - 08/20/2018 INDICATION: recent pneumonia, SOB today COMPARISON: 08/17/2018 FINDINGS: There is an air-fluid collection at the lateral left lung base similar to prior exams. This measures 7.9 x 4.7 cm. There are small bibasilar infiltrate similar to prior. There is a trace right pleural effusion. Heart size remains top normal. IMPRESSION: Little change from prior. Electronically signed by Raymond Schmidt 08/20/2018 2:15 PM
[2018-08-20] MEDS ORDERED: OFIRMEV 1000 MG/ISOTONIC SOLN 1,000 MG/100 ML BOTTLE IV ONE (14:33)
[2018-08-20 14:57] LABS: BASO# 0.03 X1000 (0.0-0.2); BASO% 0.2 % (0.0-0.8); EOS# 0.01 X1000 (0.0-0.7); EOS% 0.1 % (0.0-10.0); HEMATOCRIT 33.1 % (37.0-47.0); HEMOGLOBIN 9.6 g/dL (12.0-16.0); IMM GRAN# 0.05 X1000 (0.0-0.04); IMM GRAN% 0.4 % (0.0-0.5); LYMPH# 1.32 X1000 (1.2-3.4); LYMPH% 10.5 % (20.5-51.1); MCH 22.9 PG (27-31); MONO# 1.05 X1000 (0.11-0.59); MONO% 8.4 % (1.7-9.3); MPV 11.1 FL (7.4-10.4); NEUT# 10.07 X1000 (1.4-6.5); NEUT% 80.4 % (42.2-75.2); PLT 668 X1000 (130-400); RBC 4.19 XMIL (4.2-5.4); RDW 18.2 % (11.5-14.5); WBC 12.53 X1000 (4.8-10.8)
[2018-08-20] MEDS ORDERED: VANCOMYCIN 1 GM/NS 1 GM/250 ML IVPB IV ONE ×2 (15:06→18:00)
[2018-08-20] MEDS ORDERED: ROCEPHIN 1 GM in NS 50 ML IV ONE (15:06)
[2018-08-20 15:20] LABS: AGAP 16; ALB/GLOB RATIO 0.7; ALBUMIN 3.3 g/dL (3.5-5.0); ALKALINE PHOSPHATASE 75 U/L (32-104); BUN 5 mg/dL (8-22); CALCIUM 9.1 mg/dL (8.8-10.2); CHLORIDE 89 mmol/L (98-107); COSMO 264; CREATININE 0.5 mg/dL (0.5-0.9); ESTIMATED GFR > 60; GLUCOSE 98 mg/dL (70-104); GOT 12 U/L (10-30); GPT < 5 U/L (10-36); POTASSIUM 3.2 mmol/L (3.5-5.1); SODIUM 133 mmol/L (136-145); TCO2 28 mmol/L (25-35); TOTAL BILIRUBIN 0.44 mg/dL (0.20-1.00); TOTAL PROTEIN 7.8 g/dL (6.3-8.3)
[2018-08-20] MEDS: NS 1,000 ML IV SCH (15:33)
[2018-08-20] MEDS ORDERED: KLOR-CON PO ONE (15:37)
--- NOTE | 2018-08-20 15:44 | PROVIDER DOCUMENTATION ---
This chart was entered by Senait Mccormick Scribe, acting as scribe for Reji Mcginnis PA. HPI-General Adult - General Chief Complaint: Nausea/Vomiting Stated Complaint: n/v Time Seen by Provider: 08/20/18 13:10 Source: patient, old records Allergies/Adverse Reactions: Patient Allergies Allergy/AdvReac Type Severity Reaction Status Date / Time amoxicillin Allergy ITCHING Verified 08/17/18 14:10 ketorolac tromethamine * Allergy HIVES Verified 04/21/17 07:56 [From Toradol] Home Medications: Home Medication List Medication Instructions Recorded Confirmed Last Taken Type Buprenorphine/Naloxone S.l. 1 each SL BID 10/10/17 07/25/18 07/25/18 History [Suboxone 8 mg/2 mg Film] Chlordiazepoxide [Librium] 10 mg PO TID PRN PRN 10/10/17 07/25/18 07/25/18 History Pregabalin [Lyrica] 50 mg PO DAILY 10/10/17 07/26/18 07/25/18 History Acetaminophen [Tylenol] 650 mg PO Q6H PRN PRN #20 tablet 08/17/18 Unknown Rx Albuterol Sulfate Inhaler 2 puff INH Q6H PRN PRN #1 inhaler 08/17/18 Unknown Rx [Ventolin Hfa] Furosemide [Lasix] 40 mg PO DAILY #90 tab 08/17/18 Unknown Rx Iron Carbonyl/Ascorbic Acid 1 ea PO BID #60 tab 08/17/18 Unknown Rx [Icar-C] Lactulose 30 ml PO DAILY #1 udc 08/17/18 Unknown Rx Levofloxacin [Levaquin] 500 mg PO DAILY 14 Days #14 tab 08/17/18 Unknown Rx Metronidazole [Flagyl] 500 mg PO Q8H 14 Days #42 tab 08/17/18 Unknown Rx Pantoprazole [Protonix] 40 mg PO DAILY@0700 #60 tab 08/17/18 Unknown Rx - History of Present Illness -Gen Adult Nature of Presenting Problems: 37 y/o female presents to ED with worsening N/V and SOB onset 3 days ago. Pt was recently admitted for pneumonia and sepsis, had a pneumothorax while undergoing thoracentesis, and was discharged home 5 days ago. Pt is alert and oriented. Location of Pain/Injury: reports: none Pain Radiation: reports: no radiation Quality of Pain: reports: none Severity: reports: moderate, severe Onset/Duration: reports: 3 days ago Timing: reports: still present, getting worse Context/Activities at Onset: reports: none Modifying Factors: improves with: nothing Associated Symptoms: reports: nausea, shortness of breath, vomiting Similar Symptoms Previously?: Yes Recently seen or treated by another doctor?: Yes (discharged after admission 5 days ago) Review of Systems - Adult - REVIEW OF SYSTEMS - ADULT Constitutional: denies: chills, fever Eyes: reports: no symptoms reported Ears, Nose, Mouth & Throat: reports: no symptoms reported Cardiovascular: denies: chest pain, palpitations Respiratory: reports: shortness of breath. denies: cough Gastrointestinal: reports: nausea, vomiting. denies: abdominal pain, diarrhea Genitourinary: reports: no symptoms reported Musculoskeletal: denies: back pain, joint pain Integumentary: reports: no symptoms reported Neurological: denies: dizziness/vertigo, seizure Psychiatric: reports: no symptoms reported Endocrine: reports: no symptoms reported Hematologic/Lymphatic: reports: no symptoms reported Allergic/Immunologic: reports: no symptoms reported All Other Systems: Reviewed and Negative Past History - Adult - PAST MEDICAL HISTORY-ADULT Review of Records: reports: Old Records Reviewed, Nursing Assessment Review, Medications Reviewed Major Childhood Illnesses: reports: denies history Cardiovascular: reports: denies history, blood clots (PE) Respiratory: reports: asthma, pneumonia, other (pneumothorax, PE) Gastrointestinal: reports: denies history Obstetrical/Gynecological: reports: denies history Genitourinary: reports: denies history Musculoskeletal: reports: other (RESTLESS LEG SYNDROME-NOT ON MEDICATION CURRENTLY FOR THIS.) Neurological: reports: denies history Psychiatric: reports: depression Endocrine/Immune: reports: denies history Other Conditions: reports: denies history, MRSA Additional History: RLS - PRIOR SURGERIES/PROCEDURES Surgical/Procedure History: reports: cholecystectomy, tonsillectomy, gastric bypass, other (gastric bypass) - PRIOR HOSPITALIZATIONS Prior Hospitalizations: reports: none - IMMUNIZATION STATUS Childhood Immunizations: See Nurse Assessment Flu Vaccine: See Nurse Assessment - FAMILY HISTORY Family History: reviewed, not pertinent - SOCIAL HISTORY Smoking: non-smoker Substance Use: none/never Alcohol Use Frequency: never Living Situation: family Physical Exam-General - PHYSICAL EXAM-ADULT Initial Vital Signs Reviewed: Yes - CONSTITUTIONAL General Appearance: appears well, alert, no apparent distress, other (tearful) - EYES Eyes: PERRL/EOMI, pink conjunctivae - HEAD, EARS, NOSE, MOUTH & THROAT HENMT: normocephalic/atraumatic, moist mucous membranes, other (poor dentition) - NECK Neck: non-tender, full range of motion - RESPIRATORY Respiratory: chest non-tender, lungs clear, decreased breath sounds (lower L) - CARDIOVASCULAR Cardiovascular: normal peripheral pulses, regular rate, rhythm - GASTROINTESTINAL (ABDOMEN) Abdominal Exam: normal bowel sounds, non tender, soft - MUSCULOSKELETAL Back Exam: normal inspection, no CVA tenderness Extremity: normal range of motion, non-tender, normal gait - SKIN Integumentary: normal color, warm/dry - NEUROLOGIC Neurologic: grossly normal - PSYCHIATRIC Psych/Mental Status: normal mood/affect, normal thought content, normal thought process, tearful Progress - PLAN OF CARE/RESULTS Progress/Plan/Lab Results: Vital Signs - 8 hr 08/20/18 13:02 Temperature 99.4 F Pulse Rate 107 H Respiratory Rate 18 Blood Pressure 130/75 O2 Sat by Pulse Oximetry 95 Bedside Urine ED: Urine Bedside Start: 08/20/18 13:15 Freq: Status: Active Protocol: Activity Type Activity Date Activity User E-Sign Co-Sign Detail Recorded Client Recorded Date Recorded By Document 08/20/18 13:15 [id number] 08/20/18 13:16 [id number] 08/20/18 13:15 Point of Care [Bedside Point of Care] -Lot # [id number] - Results Negative -Control Line Visible? Yes Laboratory Results - last 24 hr 08/20/18 13:35 Specimen Type ARTERIAL Sample Site R BRACHIAL pH 7.57 H* pCO2 34 L pO2 150 H HCO3 31.7 H Base Excess 8.7 H Oxyhemoglobin 95.6 ABG O2 Sat (Calculated) 13.4 L ABG O2 Saturation 98.7 ABG Carboxyhemoglobin 1.90 ABG Methemoglobin 1.3 Scott Test NO A-a O2 Difference -43.0 Total Hemoglobin 9.7 L Lactate 0.90 Liter Flow 0.0 Blood Gas Modality ROOM AIR FiO2 % 21.0 Orders Category Date Time Status Saline Loc NOW Care 08/20/18 13:15 Active CHEST-2 VIEWS [RAD] Stat Exams 08/20/18 13:15 Taken ABG [RESP] Routine Lab 08/20/18 13:35 Completed BLOOD CULTURE [BLDCUL] Stat Lab 08/20/18 14:01 Ordered CBC WITH ELECTRONIC DIFF [HEME] Stat Lab 08/20/18 13:15 Uncollected COMPREHENSIVE METABOLIC PANEL [CHEM] Stat Lab 08/20/18 13:15 Uncollected INFLUENZA SCREEN A/B Stat Lab 08/20/18 13:15 Uncollected Laboratory Tests 08/20/18 08/20/18 13:35 14:23 WBC 12.53 H RBC 4.19 L Hgb 9.6 L Hct 33.1 L MCV 79.0 L MCH 22.9 L MCHC 29.0 L RDW Std Deviation 18.2 H Plt Count 668 H MPV 11.1 H Immature Gran % (Auto) 0.4 Neut % (Auto) 80.4 H Lymph % (Auto) 10.5 L Keith % (Auto) 8.4 Eos % (Auto) 0.1 Baso % (Auto) 0.2 Immature Gran # (Auto) 0.05 H Neut # (Auto) 10.07 H Lymph # (Auto) 1.32 Keith # (Auto) 1.05 H Eos # (Auto) 0.01 Baso # (Auto) 0.03 Specimen Type ARTERIAL Sample Site R BRACHIAL pH 7.57 H* pCO2 34 L pO2 150 H HCO3 31.7 H Base Excess 8.7 H Oxyhemoglobin 95.6 ABG O2 Sat (Calculated) 13.4 L ABG O2 Saturation 98.7 ABG Carboxyhemoglobin 1.90 ABG Methemoglobin 1.3 Scott Test NO A-a O2 Difference -43.0 Total Hemoglobin 9.7 L Lactate 0.90 Liter Flow 0.0 Blood Gas Modality ROOM AIR FiO2 % 21.0 Dr. Toledo aware of pt and in agreement c plan of care and labs. Result Diagrams: 08/20/18 14:23 08/20/18 14:23 - XRAY 1 XRAY Study: Chest Impression: Abnormal (FINDINGS: There is an air-fluid collection at the lateral left lung base similar to prior exams. This measures 7.9 x 4.7 cm. There are small bibasilar infiltrate similar to prior. There is a trace right pleural effusion. Heart size remains top normal. IMPRESSION: Little change from prior. Electronically signed by Raymond Schmidt 08/20/2018 2:15 PM) - CONSULTS/PCP/HOSPITALIST Notification #1 *Consult/PCP/Hospitalist*: JEN Brunson for Dr. Watson Time Discussed: 15:42 Consult Disposition: Admit Departure - Departure Date of Disposition Decision: 08/20/18 Time of Disposition Decision: 15:43 DIAGNOSIS: Pneumonia, Respiratory alkalosis, Hypokalemia Disposition: ADMITTED INPATIENT 09 Certified Medical Emergency: Emergent Condition: Stable Referrals and Follow-Ups: None,PCP [Primary Care Provider] - - Critical Care Note This patient required my direct & personal management of CC.: No Attestation - Physician/ [place] Attestation Patient care was provided by Advanced Practice Provider:: Yes Advanced Practice Provider:: Reji Mcginnis Advanced Practice Provider documentation review:: The Mid-level provider documentation, treatment plan and medical decision making was reviewed by the physician who agrees with all treatment and medical decision making by the MLP. The physician spent face to face time with patient:: No Advanced Practice Provider documentation review:: Supervising physician onsite and consulted in the evaluation and care of this patient. The physician did not have a face to face encounter with the patient. This chart was documented by the indicated scribe, (Senait Mccormick, Donald) and accurately reflects the services I performed and decisions made by Ras bueno Steven Wesley, PA, as attested by the provider's signature.
[2018-08-20] MEDS ORDERED: ZOFRAN IV ONE (15:57)
[2018-08-20] MEDS ORDERED: NS 1,000 ML IV ONE (16:43)
[2018-08-20] MEDS ORDERED: XOPENEX NEB INH PRN (16:44)
[2018-08-20] MEDS ORDERED: VENTOLIN HFA INH PRN (16:51)
[2018-08-20] MEDS ORDERED: FOLIC ACID 1 MG in NS 50 ML IV SCH (17:00)
[2018-08-20] MEDS ORDERED: VANCOMYCIN IV PER PHARMACY MISC SCH (17:00)
[2018-08-20] MEDS ORDERED: MAGNESIUM SULFATE 2 GM/S.W.I. 2 GM/50 ML IVPB IV ONE (17:07)
[2018-08-20 17:13] LABS: INR 1.08; PROTIME 14.9 Seconds (11.0-16.0)
[2018-08-20 17:41] LABS: URINE SOURCE CLEAN CATCH
[2018-08-20 17:42] LABS: BILIRUBIN URINE NEGATIVE (NEGATIVE); BLOOD URINE NEGATIVE (NEGATIVE); COLOR YELLOW; GLUCOSE URINE NEGATIVE (NEGATIVE); KETONE URINE 40 mg/dL (NEGATIVE); LEUKOCYTES URINE NEGATIVE (NEGATIVE); NITRITE URINE NEGATIVE (NEGATIVE); PROTEIN URINE 50 mg/dL (NEGATIVE); SP GRAVITY URINE 1.026; TURBIDITY URINE HAZY (CLEAR); UROBILINOGEN URINE NORMAL (NORMAL)
[2018-08-20 17:43] LABS: UR EPITHELIAL CELLS >10 /HPF (<10); URINE BACTERIA NEGATIVE /HPF; URINE RBC <10 /HPF (<10)
[2018-08-20] MEDS: LIBRIUM PO PRN (18:29)
[2018-08-20] MEDS: XOPENEX NEB INH SCH ×2 (19:25→23:25)
--- NOTE | 2018-08-20 19:48 | HISTORY AND PHYSICAL ---
DATE OF ADMISSION: 08/20/2018. CHIEF COMPLAINT: Nausea, vomiting and shortness of breath. HISTORY OF PRESENT ILLNESS: Ms. Singh is a [id number] female who was discharged from our service three days ago. At that time, she had a diagnosis of pneumonia with parapneumonic effusion and was positive for strep pneumo on urine antigen. She had a prolonged stay and underwent thoracentesis with subsequent iatrogenic pneumothorax. There was discussion of VATS. However, given the patient's body habitus, it was felt like more conservative measures were appropriate. She had 29 days of antibiotics and was discharged on five more days of antibiotics. She reports that she has continued to take those as well as her Lasix, but she has had increasing nausea, vomiting and shortness of breath and chills essentially since she left. When she got to the ER, chest x-ray showed continued air fluid collection in the left, lateral lung base measuring almost 8 x 5 cm. Her white count is at 12.5. She has metabolic alkalosis. She is hemodynamically stable, but given the recurrent effusion and her symptoms, it was felt that she will need admission for further treatment and evaluation. PAST MEDICAL HISTORY: 1. Recent pneumonia with parapneumonic effusions status post thoracentesis. 2. Strep pneumo pneumonia. 3. Chronic respiratory failure. 4. Morbid obesity. 5. History of narcotic dependence on Suboxone therapy. 6. Chronic constipation. SURGICAL HISTORY: 1. Gastric bypass. 2. Tonsillectomy. 3. Cholecystectomy. SOCIAL HISTORY: Denies tobacco or alcohol use. She is on Suboxone therapy for a history of opiate dependence. FAMILY HISTORY: Noncontributory. REVIEW OF SYSTEMS: 14 point review of systems obtained and found to be negative with the exception of the HPI. ALLERGIES: AMOXICILLIN AND TORADOL. HOME MEDICATIONS: 1. Suboxone 8 mg sublingual b.i.d. 2. Librium 10 mg t.i.d. as needed for anxiety. 3. Lyrica 50 mg p.o. t.i.d. 4. Tylenol 650 mg p.o. q. 6 hours. 5. Ventolin HFA 2 puffs inhaled q.6 hours as needed. 6. Lasix 40 mg daily. 7. Icar C 1 p.o. b.i.d. 8. Lactulose 30 mL p.o. daily. 9. Levaquin 500 mg p.o. daily. 10.Flagyl 500 mg p.o. q. 8 hours. 11.Protonix 40 mg p.o. daily. REVIEW OF SYSTEMS: 14 point review of systems obtained and found to be negative with the exception of the HPI. PHYSICAL EXAMINATION: VITAL SIGNS: Blood pressure is 116/68, heart rate 98, respiratory rate 18 and O2 saturation 95% on nasal cannula. Temperature is 99.4. GENERAL: Morbidly obese female lying in the hospital bed in no acute distress. NEUROLOGICAL: Awake, alert and oriented. Follows commands. No focal deficits. HEENT: Normocephalic, atraumatic. Pupils are equal, round and reactive to light. Oral mucosa is very dry. Trachea is midline. CHEST: Essentially clear to auscultation. Diminished over the left lung base. CV: Slightly tachycardic. S1, S2 noted. No murmurs. GI: Soft, nondistended and nontender. Bowel sounds are active. EXTREMITIES: Trace edema bilaterally. Pulses are 2+. DIAGNOSTIC DATA: Chest x-ray shows 8 x 5 cm air fluid collection in the left lateral lung base. Small basilar infiltrates. Trace right pleural effusion. WBC 12.53, hemoglobin 9.6, hematocrit 33.1, platelet count 668, INR 1.08. ABG on room air showed a pH of 7.57, pCO2 of 34 and pO2 of 150 with a bicarbonate of 31.7. Sodium 133, potassium 3.2, chloride 89, CO2 28 , anion gap 16, BUN 5, creatinine 0.5, glucose 98, calcium 9.1, magnesium 1.6, AST 12, ALT less than 5, albumin 3.3 and urinalysis is negative. ASSESSMENT AND PLAN: 1. Recurrent pneumonia with recurrent parapneumonic effusion: We will increase her antibiotics to meropenem and add vancomycin. We will continue breathing treatments and aggressive pulmonary toilet. We have ordered blood and sputum cultures and will consult infectious disease, surgery and pulmonary. We will check daily chest x-rays. 2. Metabolic alkalosis: She is volume depleted on exam and has been taking Lasix. She is also hyponatremic and hypokalemic. All likely mild volume depletion. We will start some IV fluids albeit at a gentle rate. We will monitor volume status. 3. Microcytic anemia: Last admission, she had full iron studies done which showed fairly severe folate deficiency as well as iron deficiency. She is on Icar which we will continue. We will also add IV folate for her folic acid deficiency. 4. Hyponatremia and hypokalemia: Likely secondary to her diuretics. We will replace with exogenous potassium and light IV fluids. 5. Chronic pain: Will continue her home medications with added MiraLAX for bowel regimen. 6. DVT prophylaxis will be added with SCDs. Further recommendations to follow. Dictated by JEN Serna for Madelin Watson MD cc: JEN Serna MD I performed a face to face encounter on the patient. I reviewed all imaging and labs for the patient. I agree with the H&P as dictated. The patient presented to the ER with a chief complaint of nausea, vomiting and worsening shortness of breath. A chest x ray showed a left loculated pleural effusion as well as pneumonia. On exam, the patient is alert and oriented x 4. Her breath sounds are diminished in the left lower lung field. Her abdomen is obese and mildly tender to palpation. Hypoactive bowel sounds are noted. Blood cultures have been obtained. Sputum culture is pending. Will start broad spectrum antibiotics and consult general surgery and ID. Will also obtain an x ray of the abdomen. THO
[2018-08-20] MEDS ORDERED: SUBOXONE 8 MG/2 MG FILM SL SCH (21:00)
[2018-08-20] MEDS: MERREM 1 GM in NS 50 ML IV SCH (22:03)
[2018-08-20] MEDS: ICAR-C PO SCH (22:03)
[2018-08-20] MEDS: FOLIC ACID 1 MG in NS 50 ML IV SCH (22:56)
[2018-08-21] MEDS: NS 1,000 ML IV SCH ×3 (02:07→22:25)
[2018-08-21] MEDS: LIBRIUM PO PRN ×2 (02:38→15:48)
[2018-08-21] MEDS: XOPENEX NEB INH SCH ×6 (03:25→22:44)
[2018-08-21] MEDS: PROTONIX PO SCH (06:03)
[2018-08-21] MEDS: VANCOMYCIN 2 GM in NS 500 ML IV SCH ×2 (06:03→21:08)
[2018-08-21] MEDS: MERREM 1 GM in NS 50 ML IV SCH ×2 (06:03→15:13)
[2018-08-21 07:21] LABS: BASO# 0.08 X1000 (0.0-0.2); BASO% 0.9 % (0.0-0.8); EOS# 0.07 X1000 (0.0-0.7); EOS% 0.8 % (0.0-10.0); HEMATOCRIT 29.8 % (37.0-47.0); HEMOGLOBIN 8.6 g/dL (12.0-16.0); IMM GRAN# 0.02 X1000 (0.0-0.04); IMM GRAN% 0.2 % (0.0-0.5); LYMPH# 1.24 X1000 (1.2-3.4); LYMPH% 13.4 % (20.5-51.1); MCH 23.4 PG (27-31); MCHC 28.9 g/dL (33-37); MONO# 1.04 X1000 (0.11-0.59); MONO% 11.3 % (1.7-9.3); MPV 10.7 FL (7.4-10.4); NEUT# 6.77 X1000 (1.4-6.5); NEUT% 73.4 % (42.2-75.2); PLT 573 X1000 (130-400); RBC 3.68 XMIL (4.2-5.4); RDW 18.2 % (11.5-14.5); WBC 9.22 X1000 (4.8-10.8)
[2018-08-21 08:51] LABS: AGAP 13; BUN 4 mg/dL (8-22); CALCIUM 7.9 mg/dL (8.8-10.2); CHLORIDE 96 mmol/L (98-107); COSMO 267; CREATININE 0.5 mg/dL (0.5-0.9); ESTIMATED GFR > 60; GLUCOSE 103 mg/dL (70-104); SODIUM 135 mmol/L (136-145); TCO2 26 mmol/L (25-35)
[2018-08-21] MEDS ORDERED: KLOR-CON PO ONE (09:00)
[2018-08-21] MEDS ORDERED: LYRICA PO SCH (09:00)
[2018-08-21] MEDS: LACTULOSE PO SCH (09:50)
[2018-08-21] MEDS: ICAR-C PO SCH ×2 (09:51→21:09)
[2018-08-21] MEDS ORDERED: ZOFRAN IV PRN (09:58)
[2018-08-21] MEDS: SUBOXONE 8 MG/2 MG SL SCH ×2 (11:40→22:25)
--- NOTE | 2018-08-21 14:00 | CONSULTATION ---
DATE OF CONSULTATION: 08/21/2018 SUBJECTIVE: Ms. Marlen Sinhg is a 37-year-old morbidly obese white female who recently had a prolonged hospital hospitalization here with bilateral basilar pneumonia. She has been on IV antibiotics for at least 3 weeks during her hospitalization. She underwent thoracentesis by myself for fluid that had no evidence of infection initially, and then she underwent CT-guided drainage of a hydropneumothorax left chest by Radiology and again this fluid was thin and clear. She has developed another area of fluid collection in the left lower lobe. Otherwise her chest x- ray has improved over the last 3 weeks. She was sent home and she stated that she had some shortness of breath, nausea and vomiting and returned to the emergency department and has been readmitted. She is on multiple IV antibiotics again. We will ask Radiology to evaluate her chest x-ray and see if they can with CT-guidance drain this other loculated fluid collection left lower lobe. cc: Mavis Wright MD
[2018-08-21] MEDS ORDERED: MILK OF MAGNESIA PO ONE (14:10)
--- NOTE | 2018-08-21 14:39 | PROGRESS NOTE ---
DATE: 08/21/2018 SUBJECTIVE: The patient complains of nausea and abdominal discomfort. OBJECTIVE: Vital Signs: Temperature 98.1, blood pressure 118/66, heart rate 93, respirations 17, O2 sats 96% on 2 L nasal cannula. General: This is a morbidly obese female sitting up in bed in no acute distress. Heart: S1, S2 normal. Regular rate and rhythm. Lungs: Equal air entry. Diminished breath sounds in the left lung base. Abdomen: Positive bowel sounds. Soft, nontender, nondistended. Extremities: No edema, no cyanosis. Neurologic: The patient is alert and oriented x 3. LABS: White blood cell count 9.2, hemoglobin 8.6, hematocrit 29, platelets 573,000. Sodium 135, potassium 3, chloride 96, CO2 26, BUN 4, creatinine 0.5, glucose 103. ASSESSMENT AND PLAN: 1. Pneumonia with a loculated left parapneumonic effusion. Continue with antibiotics. General Surgery and ID have been consulted. 2. Nausea with vomiting. Will order an abdominal x-ray. The x-ray done several days ago does reveal constipation. Will start the patient on scheduled laxative therapy as well as antiemetics. 3. Morbid obesity. Aware. 4. Chronic pain. Continue on Suboxone. 5. Iron deficiency anemia. Continue with Icar C. 6. Hypokalemia. Will replace the patient's potassium. 7. DVT prophylaxis. Continue with SCDs. cc: Madelin Watson MD
[2018-08-21] MEDS: LYRICA PO SCH ×2 (15:13→21:11)
--- NOTE | 2018-08-21 15:40 | Diag Imaging Result Doc PS360 ---
ABDOMEN FLAT/UPRIGHT - 08/21/2018 INDICATION: abdominal pain COMPARISON: 08/13/2018 FINDINGS: There is moderate constipation. The rectal stool impaction has resolved. No bowel obstruction. IMPRESSION: Improvement in the moderate constipation. Electronically signed by Raymond Schmidt 08/21/2018 3:37 PM
--- NOTE | 2018-08-21 17:33 | INFECTIOUS DISEASE PROGRESS NO ---
DATE: 08/21/2018 PRESENT ILLNESS: The patient was discharged recently with pneumococcal pneumonia with a parapneumonic effusion. She developed nausea, vomiting and dyspnea at home. The exact reason why this happened is uncertain to me. I think it is possible that the medicine may have caused her to have nausea and vomiting, and specifically the Flagyl. Based on the patient's chest x-ray, prior pneumonia looks to be the same and is not any worse. The patient does have 1 out of 2 blood cultures positive for gram-positive cocci. This could be a contaminant due to Staph epidermidis or it could be a pathogen due to Staph aureus or a recurrence of the Streptococcus pneumoniae or could be recurrence of the Streptococcus pneumoniae infection. MEDICATIONS: I agree with treating the patient with vancomycin and meropenem pending further studies. PHYSICAL EXAMINATION: Vital Signs: Temperature is 98.1, pulse 93, respirations 14, blood pressure 118/66. General: This is an obese young female. Today she looks to be in no acute distress and, in fact, she was eating her lunch when I went in and saw her. Head, Eyes, Ears, Nose and Throat: She can hear my spoken words and see near objects. She does not have any white patches on her tongue. Neck: No meningismus. Lungs: Clear to auscultation. Cardiovascular: Regular heart rate. Abdomen: Soft and nontender. Neurologic: The patient is alert. She can move her extremities. There is no tremor. LAB AND X-RAY: Chest x-ray shows an air-fluid collection in the left chest at the base. There are also bibasilar infiltrates. The x-ray appears to be the same as when the patient was discharged. As mentioned above, 1 out of 2 blood cultures are growing a gram-positive coccus. CBC shows a white count of 9220, hemoglobin 8.6, and platelet count 573,000. Blood gases show a pH of 7.57, a PO2 of 150 and a pCO2 of 34. Creatinine is 0.5. GFR is greater than 60. Liver function studies are normal. Urinalysis showed white cells, but no bacteria. Urine cultures negative. Swab for influenza is negative. ASSESSMENT AND PLAN: The patient is appears to be over her nausea and vomiting. She does have a positive blood culture and her pneumonia with a parapneumonic effusion is still present. I think it would be reasonable to continue vancomycin and meropenem pending further results of laboratory tests. COMORBIDITIES: She is on narcotic dependence and she takes Suboxone for that. She is obese and she had a history of pneumococcal pneumonia. cc: Carloz Antonio MD
[2018-08-21] MEDS: FOLIC ACID 1 MG in NS 50 ML IV SCH (21:09)
[2018-08-21] MEDS: COLACE PO SCH (21:09)
[2018-08-21] MEDS: MIRALAX PO SCH (21:09)
[2018-08-21] MEDS: DULCOLAX PR SCH (21:10)
--- NOTE | 2018-08-21 21:11 | PULMONOLOGY CONSULTATION ---
DATE: 08/21/2018 REQUESTING PHYSICIAN: Dr. Watson. REASON FOR CONSULTATION: Pneumothorax. HISTORY OF PRESENT ILLNESS: Ms. Singh is a 37-year-old white female who was admitted to the hospital 07/25/2018 until 08/17/2018 with a pneumonia which was likely due to strep pneumonia given a positive urinary antigen. The patient's course was complicated by a pleural effusion. She underwent thoracentesis and cultures were negative but she developed a pneumothorax. Due to body habitus, a chest tube was felt to be high risk. The patient underwent drainage by CT-guided catheter placement. The patient was discharged 08/17/2018 on Levaquin and Flagyl. She subsequently developed some fevers and chills along with some nausea and was readmitted to the hospital yesterday. The patient did have mild leukocytosis upon presentation but has remained afebrile. PAST MEDICAL HISTORY: Problem list 1. Recent prolonged hospitalization for pneumococcal pneumonia, pleural effusion, pneumothorax, as per above. 2. Chronic pain syndrome. 3. Depression. 4. Irritable bowel syndrome. 5. Status post cholecystectomy. 6. Status post gastric bypass. 7. Status post tonsillectomy . SOCIAL HISTORY: The patient is a never smoker. The patient denies alcohol use. FAMILY HISTORY: Positive for coronary artery disease, hypertension, diabetes. REVIEW OF SYSTEMS: As noted in the HPI but is otherwise negative. PHYSICAL EXAM: Reveals a morbidly obese white female resting comfortably in no distress. Blood pressure 139/78, heart rate 101, respiratory rate 19, oxygen saturation 95% on 2 L per nasal cannula.HEENT: Pupils are equal and reactive. Oropharynx is clear. Neck: Supple. Chest: Reveals good air entry bilaterally with crackles at the left base. Cardiac: S1-S2. Abdomen: Obese and soft. Extremities: Reveal trace edema. LABORATORIES: Chest x-ray reveals pleural effusion on the left with an air-fluid level present. White blood count 9.22, hemoglobin 8.6, platelet count 573,000. IMPRESSION: A 37-year-old with morbid obesity, chronic hypoxemic respiratory failure, pleural effusion with an air-fluid level. Chart has been reviewed. Dr. Wright has recommended CT- guided placement of a pigtail catheter for repeat drainage. I agree with this recommendation. RECOMMENDATION: 1. Continue antibiotics per Infectious Disease. 2. Await CT-guided drainage and fluid evaluation. cc: Dipesh Gant MD
[2018-08-22] MEDS: XOPENEX NEB INH SCH ×6 (03:11→23:25)
[2018-08-22] MEDS: MERREM 1 GM in NS 50 ML IV SCH ×3 (03:35→21:23)
[2018-08-22] MEDS: MOVANTIK PO SCH (06:44)
--- NOTE | 2018-08-22 07:00 | Diag Imaging Result Doc PS360 ---
EXAM: CHEST-PORTABLE HISTORY: Dyspnea TECHNIQUE: Portable chest single view COMPARISON: 08/20/2018 FINDINGS: Poor inspiratory effort. There are small bilateral pleural effusions. The bilateral infiltrates with pulmonary edema. The heart is mildly prominent. Overall the findings are more prominent than on the prior study. IMPRESSION: Interval worsening Electronically signed by Emile Hou 08/22/2018 6:57 AM
[2018-08-22 07:32] LABS: BASO# 0.09 X1000 (0.0-0.2); EOS# 0.11 X1000 (0.0-0.7); EOS% 1.2 % (0.0-10.0); HEMATOCRIT 30.6 % (37.0-47.0); HEMOGLOBIN 8.7 g/dL (12.0-16.0); LYMPH# 1.39 X1000 (1.2-3.4); LYMPH% 15.6 % (20.5-51.1); MCH 23.3 PG (27-31); MCHC 28.4 g/dL (33-37); MONO# 1.04 X1000 (0.11-0.59); MONO% 11.7 % (1.7-9.3); NEUT# 6.29 X1000 (1.4-6.5); NEUT% 70.5 % (42.2-75.2); PLT 598 X1000 (130-400); RBC 3.73 XMIL (4.2-5.4); RDW 17.9 % (11.5-14.5); WBC 8.92 X1000 (4.8-10.8)
[2018-08-22 07:35] LABS: INR 1.09
[2018-08-22 07:36] LABS: PTT 44.6 Seconds (22.3-41.8)
[2018-08-22 07:53] LABS: AGAP 12; BUN 4 mg/dL (8-22); CALCIUM 8.8 mg/dL (8.8-10.2); CHLORIDE 102 mmol/L (98-107); COSMO 277; CREATININE 0.6 mg/dL (0.5-0.9); ESTIMATED GFR > 60; GLUCOSE 108 mg/dL (70-104); POTASSIUM 4.1 mmol/L (3.5-5.1); SODIUM 140 mmol/L (136-145); TCO2 26 mmol/L (25-35)
[2018-08-22] MEDS: NS 1,000 ML IV SCH (08:46)
[2018-08-22] MEDS: VANCOMYCIN 2 GM in NS 500 ML IV SCH ×2 (08:47→22:29)
--- NOTE | 2018-08-22 12:11 | Diag Imaging Result Doc PS360 ---
EXAM: CT PLEURAL DRN CATH W/CT GUIDE INDICATION: 12F drainage of L chest fluid collection. TECHNIQUE: COMPARISON: 08/10/2018 FINDINGS: Risks, benefits, and alternatives were discussed with the patient and informed consent was obtained. The patient was placed in a right posterior oblique position and was prepped and draped in sterile fashion. Local anesthesia was achieved with 1% lidocaine solution. Using CT guidance, a 25 cm 12-Austrian pigtail drainage catheter was inserted into the multiloculated hydropneumothorax on the left using an anterior lateral approach. The catheter was secured with a catheter dressing and was connected to an accordion drain. A sample of the cloudy straw-colored fluid that was aspirated was sent for laboratory analysis. There were no known complications. The patient tolerated the procedure well. IMPRESSION: Technically successful CT-guided left pleural drainage catheter placement. Electronically signed by Edmond Petit 08/22/2018 12:08 PM
--- NOTE | 2018-08-22 12:31 | PROGRESS NOTE ---
DATE: 08/22/2018 SUBJECTIVE: The patient just returned from a CT-guided pleural drainage. She denies having any nausea. She does complain of pain at the insertion site of the catheter. OBJECTIVE: Vital Signs: Temperature 98.2 degrees, blood pressure 129/66, heart rate 97, respirations 16, O2 saturation 97% on 2 L nasal cannula. General: This is a morbidly obese female sitting at the edge of the bed, in no acute distress. Heart: S1, S2 normal. Regular rate and rhythm. Lungs: Equal air entry bilaterally. No crackles. No rales. Abdomen: Positive bowel sounds. Soft, obese, nontender, nondistended. Extremities: No edema. No cyanosis. Neurologic: The patient is alert and oriented x3. LABORATORY DATA: White blood cell count 8.9, hemoglobin 8.7, hematocrit 30, platelets 598,000. Sodium 140, potassium 4.1, chloride 102, CO2 26, BUN 4, creatinine 0.6, glucose 108. DIAGNOSTIC STUDIES: Chest x-ray shows bilateral infiltrates with pulmonary edema. ASSESSMENT AND PLAN: 1. Pneumonia with a loculated left parapneumonic effusion status post pleural drainage. Continue with antibiotic therapy. Will follow up on the cultures. Further management as per the general surgeon,Infectious Disease, and Pulmonary. 2. Morbid obesity. Aware. 3. Constipation. Continue with scheduled laxative therapy. 4. Neuropathy. Continue on Lyrica. 5. Iron deficiency anemia. Continue on Icar C. 6. Bacteremia. One bottle of the blood cultures are growing gram-positive cocci. Continue with antibiotic therapy. Will await the results of the cultures. 7. Deep vein thrombosis prophylaxis. Will start the patient on Lovenox. cc: Madelin Watson MD [facility]
[2018-08-22] MEDS: LYRICA PO SCH ×4 (15:10→21:38)
[2018-08-22] MEDS: PROTONIX PO SCH (15:40)
[2018-08-22] MEDS: MIRALAX PO SCH ×2 (15:40→21:25)
--- NOTE | 2018-08-22 15:49 | PROGRESS NOTE ---
DATE: 08/22/2018 Ms. Ruthie Singh underwent a CT-guided placement of a left-sided drain per Dr. Edmond Petit earlier today to remove some more fluid from the left chest. The fluid is thin and brown in color. The 12-Mongolian pigtail drain is on suction and we will leave it in place for now and repeat a chest x-ray tomorrow. She is receiving IV antibiotics for her pneumonia. She has lost 100 pounds since she has gotten sick. We need to encourage nutrition. cc: Mavis Wright MD
[2018-08-22] MEDS: ICAR-C PO SCH ×2 (15:50→21:25)
[2018-08-22] MEDS: COLACE PO SCH ×2 (15:50→21:25)
[2018-08-22] MEDS: LACTULOSE PO SCH (15:50)
[2018-08-22] MEDS: SUBOXONE 8 MG/2 MG SL SCH ×3 (15:54→21:25)
--- NOTE | 2018-08-22 18:28 | INFECTIOUS DISEASE PROGRESS NO ---
DATE: 08/22/2018 PRESENT ILLNESS: Ms. Singh was recently discharged with a pneumococcal pneumonia and a parapneumonic effusion. At home, she developed some dyspnea, nausea and vomiting, and returned to the hospital. At this point, one of two of her blood cultures is growing a gram- positive coccus, which may or may not be a contaminant. MEDICATIONS: She is receiving IV vancomycin per pharmacy dosing and meropenem 1 g IV every 8 hours. PHYSICAL EXAMINATION: Vital Signs: Temperature is 98 degrees, pulse rate 95, respiratory rate 15, blood pressure 138/74, O2 saturation 97% on 2 L nasal cannula. General: This is a morbidly obese, chronically ill-appearing middle-aged female. She is lying in bed, currently in no acute distress. HEENT: Atraumatic, normocephalic. Oral mucous membranes are pink and moist. Conjunctivae are pale. Neck: Supple. Trachea is midline. Cardiovascular: Heart rate and rhythm are regular. Normal sinus rhythm on the monitor. Radial and pedal pulses are palpable bilaterally. Respiratory: Bibasilar rales noted. Upper lobes are clear. Abdomen: Soft, obese and nontender. Bowel sounds are active. Neurologic: She is awake, alert, and oriented with some generalized weakness. Integumentary: There is a left-sided pleural drain in place which has some pink/yellow fluid in the accordion drain. LABORATORY AND X-RAY: Today, her white count is 8.92 hemoglobin 8.7, platelet count 598,000. Creatinine is 0.6. Estimated GFR is greater than 60. There is a gram-positive coccus growing to the to 1/2 of her blood cultures which is yet to be identified. Chest x-ray today shows interval worsening with small bilateral pleural effusions. Bilateral infiltrates with pulmonary edema. ASSESSMENT AND PLAN: Ms. Singh has been treated for pneumococcal pneumonia with a parapneumonic effusion. Today, she has had a pleural drain put in on the left. That fluid is available in the lab, and we have put in orders to check for routine culture, AFB culture and smear, body fluid analysis and fungal culture and stain. The patient states she is feeling some better today. For now, we will continue her vancomycin and meropenem as ordered, pending final cultures. These plans have been discussed with and recommended by Dr. Antonio. COMORBIDITIES: For Ms. [place] include morbid obesity, narcotic dependence and chronic respiratory failure. Dictated by JEN Londono for Carloz Antonio MD This chart was documented by, JEN Londono and accurately reflects the services performed, treatment plan and medical decisions as attested by the providers signature Carloz Antonio MD. cc: Carloz Antonio MD [facility]
[2018-08-22 18:37] LABS: BODY FLUID SOURCE PLEURAL FLUID; MONOS 7 %; POLYS 93 %; WBC BF 15414 /cumm
[2018-08-22] MEDS: DULCOLAX PR SCH (21:25)
[2018-08-22] MEDS: FOLIC ACID 1 MG in NS 50 ML IV SCH (21:25)
[2018-08-22] MEDS: LIBRIUM PO PRN (21:26)
[2018-08-23] MEDS: MERREM 1 GM in NS 50 ML IV SCH ×3 (04:49→21:34)
[2018-08-23] MEDS: XOPENEX NEB INH SCH ×6 (05:14→23:28)
[2018-08-23] MEDS: PROTONIX PO SCH (06:02)
[2018-08-23] MEDS: MOVANTIK PO SCH (06:02)
[2018-08-23 07:41] LABS: BASO% 1.3 % (0.0-0.8); EOS# 0.19 X1000 (0.0-0.7); EOS% 2.5 % (0.0-10.0); HEMATOCRIT 30.2 % (37.0-47.0); HEMOGLOBIN 8.5 g/dL (12.0-16.0); LYMPH# 1.74 X1000 (1.2-3.4); LYMPH% 22.6 % (20.5-51.1); MCH 23.2 PG (27-31); MCHC 28.1 g/dL (33-37); MCV 82.5 FL (81-99); MONO% 11.7 % (1.7-9.3); MPV 10.6 FL (7.4-10.4); NEUT# 4.77 X1000 (1.4-6.5); NEUT% 61.9 % (42.2-75.2); PLT 536 X1000 (130-400); RBC 3.66 XMIL (4.2-5.4); RDW 17.8 % (11.5-14.5)
--- NOTE | 2018-08-23 08:01 | Diag Imaging Result Doc PS360 ---
CHEST-PORTABLE - 08/23/2018 INDICATION: Dyspnea COMPARISON: 08/22/2018 FINDINGS: There has been placement of a left basilar pleural drainage catheter in good position. There is significant multifocal bilateral infiltrate. No pneumothorax or large pleural effusion. Stable cardiomegaly. IMPRESSION: No complication. Electronically signed by Raymond Schmidt 08/23/2018 7:59 AM
[2018-08-23 08:31] LABS: AGAP 10; BUN 3 mg/dL (8-22); CHLORIDE 101 mmol/L (98-107); COSMO 274; CREATININE 0.5 mg/dL (0.5-0.9); ESTIMATED GFR > 60; GLUCOSE 103 mg/dL (70-104); POTASSIUM 3.4 mmol/L (3.5-5.1); SODIUM 139 mmol/L (136-145); TCO2 28 mmol/L (25-35)
[2018-08-23] MEDS: VANCOMYCIN 2 GM in NS 500 ML IV SCH (10:18)
[2018-08-23] MEDS: SUBOXONE 8 MG/2 MG SL SCH ×2 (10:20→20:25)
[2018-08-23] MEDS: LYRICA PO SCH ×3 (10:20→20:25)
[2018-08-23] MEDS: ICAR-C PO SCH ×2 (10:20→20:24)
[2018-08-23] MEDS: LIBRIUM PO PRN (10:20)
[2018-08-23] MEDS: COLACE PO SCH ×2 (10:20→20:24)
[2018-08-23] MEDS: LOVENOX SUBQ SCH (10:21)
[2018-08-23] MEDS: MIRALAX PO SCH ×2 (10:21→20:24)
[2018-08-23] MEDS: LACTULOSE PO SCH (10:21)
[2018-08-23 11:08] LABS: BANDS 2 % (0-1); EOS 2 % (1-10); LYMPHS 22 % (21-51); MONO 4 % (1-9); SEGS 64 % (42-75)
[2018-08-23] MEDS ORDERED: KLOR-CON PO ONE (13:15)
[2018-08-23 15:01] LABS: INR 1.08; PROTIME 14.9 Seconds (11.0-16.0)
[2018-08-23] MEDS: KLONOPIN PO PRN (15:35)
--- NOTE | 2018-08-23 15:48 | PROGRESS NOTE ---
DATE: 08/23/2018 SUBJECTIVE: The patient is awake. She is tearful, requesting that she needs something for depression. OBJECTIVE: Vital signs are as follows: Temperature 97.5, pulse 95, blood pressure is 135/71, oxygen saturation is 100%. Respiratory rate is 14. HEENT: She is atraumatic, normocephalic. Cardiovascular: S1, S2. Respiratory: Has evidence of good air entry bilaterally. She does have left pleural drainage catheter on the left side. Abdomen: Obese, nontender. No masses felt. Extremities: Edema in the lower extremities. Central Nervous System: No obvious focal deficits noted. LABORATORY DATA: WBC is 7.7, hematocrit is 30.2 with a platelet count of 536,000. INR is 1.08. Sodium is 139, potassium 3.4, chloride 101. Bicarb 28. BUN is 3, creatinine 0.5. X-ray of the chest shows significant multifocal bilateral infiltrates. ASSESSMENT AND PLAN: 1. Pneumonia with left parapneumonic effusion. Continue antibiotics. The patient does have a drain placed into the left pleural space. 2. Hypokalemia. Replace potassium level and check magnesium level. 3. Anemia. Check serum iron, TIBC, ferritin, B12, as well as folic acid level. Also stool for occult blood. 4. Depression. Start antidepressant. 5. Bacteremia. Blood cultures positive for gram-positive cocci. Urine for strep pneumonia noted to be positive. Continue antibiotic management as recommended by the Infectious Disease team. 6. Deep vein thrombosis prophylaxis; Lovenox. cc: Antonio Fontanez MD
[2018-08-23] MEDS: LEXAPRO PO SCH (17:03)
--- NOTE | 2018-08-23 17:45 | INFECTIOUS DISEASE PROGRESS NO ---
DATE: 08/23/2018 PRESENT ILLNESS: Ms. Singh is being treated for pneumococcal pneumonia and a parapneumonic effusion. She has had a pleural drain put in on the left by Dr. Wright. At this point 1/2 of her blood cultures is growing gram-positive cocci which may or may not be a contaminant. MEDICATIONS: She is receiving IV vancomycin per pharmacy dosing as well as meropenem 1 g IV every 8 hours. Unfortunately she has missed some doses due to lack of IV site availability. PHYSICAL EXAMINATION: Vital Signs: Temperature is 98.2 degrees, pulse rate 105 , respiratory rate 14, blood pressure 151/90, O2 saturation is 98% on 2 L nasal cannula. General : This is a morbidly obese chronically ill-appearing middle-aged female. She is sitting up in bed currently in no acute distress. HEENT: Atraumatic, normocephalic. Oral mucous membranes are pink and moist. Conjunctivae are pale. Neck: Supple. Trachea is midline. Respiratory : Lung sounds are clear in the upper lobes. Bibasilar rales. Cardiovascular: Heart rate and rhythm are regular and tachy. Sinus tachycardia on the monitor. Pedal and radial pulses are palpable bilaterally. Abdomen: Soft, obese and nontender. Bowel sounds are active. Neurologic: She is awake, alert, and oriented. Moving around independently in the bed. Left pleural accordion drain is in place. LABORATORY AND X-RAY: Today her white count is 7.7, hemoglobin 8.5, platelet count 536,000, creatinine is 0.5, estimated GFR is greater than 60. Her pleural fluid showed WBCs of 15,414, 93% polynuclear and 7% mononuclear with no fluid crystals. So far there is no growth on the pleural fluid and no bacteria seen on the Gram stain. There is 1/2 blood cultures growing a gram-positive coccus. Chest x-ray today shows significant multifocal bilateral infiltrates with left basilar pleural drain in good position. Urine strep pneumoniae antigen was positive. ASSESSMENT/PLAN: Ms. Singh is being treated for pneumococcal pneumonia with a parapneumonic effusion with a pleural drain on the left side. We are still awaiting final culture results to rule out the possibility of a bacteremia as well. Her urine streptococcus pneumoniae antigen was positive however this was true back on her last admission as well and does not rule out the possibility of a superinfection. So for now we will continue with her vancomycin and meropenem as ordered. Unfortunately she has already missed a dose of meropenem due to the nurses having trouble restarting an IV. The PICC team is not able to get to her until tomorrow so I have asked them to try to start a peripheral IV in the interim which they are attempting to do at this point using ultrasound guidance. These plans have been discussed with and recommended by Dr. Antonio. COMORBIDITIES: Include morbid obesity, narcotic dependence and chronic respiratory failure. Dictated by JEN Londono for Carloz Antonio MD This chart was documented by, JEN Londono and accurately reflects the services performed, treatment plan and medical decisions as attested by the providers signature Carloz Antonio MD. cc: Carloz Antonio MD [facility]
[2018-08-23] MEDS: DULCOLAX PR SCH (20:24)
[2018-08-23] MEDS: FOLIC ACID 1 MG in NS 50 ML IV SCH (20:35)
--- NOTE | 2018-08-23 22:56 | PULMONOLOGY PROGRESS NOTE ---
DATE: 08/23/2018 SUBJECTIVE: The patient is awake and alert. She reports she feels a little stronger. OBJECTIVE: Vital Signs: The patient has remained afebrile for the last 24 hours. Blood pressure 142/94, heart rate 104, respiratory rate 16, oxygen saturation 100%. HEENT: Pupils are equal and reactive. Oropharynx is clear. Neck: Supple. Chest: Decreased breath sounds at the left base. Cardiac: S1-S2. Abdomen: Soft and obese. Extremities: Without edema. LABORATORIES: Chest x-ray: Reveals cardiomegaly, with stable placement of the left basilar drain. Microbiology: Pleural fluid reveals no growth. Pleural fluid revealed no bacteria on staining. One out of two blood cultures are positive. IMPRESSION: A 37-year-old, status post treatment for pneumococcal pneumonia, chronic pneumothorax/cavitary area at the left base, with subsequent drainage, with 1 out of 2 blood cultures which were positive, which may or may not represent a contaminant. RECOMMENDATIONS: 1. Continue current drainage procedure. 2. Encourage patient to ambulate. 3. New antibiotics per Infectious Disease. 4. Extra recommendations pending outcome of culture results. cc: Dipesh Gant MD
[2018-08-24] MEDS: XOPENEX NEB INH SCH ×6 (03:35→23:11)
[2018-08-24] MEDS: MERREM 1 GM in NS 50 ML IV SCH ×4 (05:06→23:21)
[2018-08-24] MEDS: PROTONIX PO SCH (06:27)
[2018-08-24] MEDS: MOVANTIK PO SCH (06:27)
--- NOTE | 2018-08-24 07:22 | Diag Imaging Result Doc PS360 ---
EXAM: CHEST-PORTABLE 08/24/2018 HISTORY: Dyspnea TECHNIQUE: AP portable at 0612 COMMENT: There is blunting of both costophrenic angles, with an apparent loculated collection on the left which has been drained with a pigtail catheter. There is alveolar opacity in both lung bases and the heart size is slightly enlarged. Compared to 08/23/2018 there has been some improvement particularly with regard to the right lower lobe. IMPRESSION: Improving pulmonary edema. Electronically signed by See Benites 08/24/2018 7:20 AM
[2018-08-24] MEDS: VANCOMYCIN 2 GM in NS 500 ML IV SCH ×3 (08:15→16:38)
[2018-08-24] MEDS: MIRALAX PO SCH ×2 (08:27→21:18)
[2018-08-24] MEDS: ICAR-C PO SCH ×2 (08:27→21:16)
[2018-08-24] MEDS: SUBOXONE 8 MG/2 MG SL SCH ×2 (08:27→21:17)
[2018-08-24] MEDS: LEXAPRO PO SCH (08:27)
[2018-08-24] MEDS: COLACE PO SCH ×2 (08:27→21:18)
[2018-08-24] MEDS: LACTULOSE PO SCH (08:27)
[2018-08-24] MEDS: LOVENOX SUBQ SCH (08:29)
[2018-08-24] MEDS: LYRICA PO SCH ×4 (08:29→17:56)
[2018-08-24 08:32] LABS: AGAP 10; BUN 3 mg/dL (8-22); CALCIUM 8.8 mg/dL (8.8-10.2); CHLORIDE 101 mmol/L (98-107); COSMO 272; CREATININE 0.5 mg/dL (0.5-0.9); ESTIMATED GFR > 60; GLUCOSE 94 mg/dL (70-104); POTASSIUM 3.8 mmol/L (3.5-5.1); SODIUM 138 mmol/L (136-145); TCO2 27 mmol/L (25-35)
[2018-08-24] MEDS: KLONOPIN PO PRN ×2 (14:51→21:18)
--- NOTE | 2018-08-24 14:51 | PROGRESS NOTE ---
DATE: 08/24/2018 SUBJECTIVE: The patient is awake. Feels much better today. OBJECTIVE: Vital signs: Temperature 97.8 degrees, pulse 102, respiratory rate 16, blood pressure is 133/83, oxygen saturation is 98%. HEENT: Atraumatic, normocephalic. Cardiovascular: S1, S2. Respiratory: Has evidence of good air entry bilaterally. Abdomen: Obese, nontender. No masses felt. Extremities: Has edema in the lower extremities. Central nervous system: No obvious focal deficit noted. LABS: Sodium is 138, potassium 3.8, chloride is 101, bicarb 27, BUN is 3, creatinine 0.5. ASSESSMENT AND PLAN: 1. Pneumonia with left parapneumonic effusion. Continue antibiotics. Management of left parapneumonic effusion per Surgery/Pulmonology. 2. Anemia. Follow up on hemoglobin, hematocrit. Transfuse PRBCs as needed. 3. Depression. Continue antidepressant. 4. Bacteremia. Continue antibiotics as recommended by ID. 5. Deep vein thrombosis prophylaxis. Patient is on Lovenox. cc: Antonio Fontanez MD
[2018-08-24] MEDS: DULCOLAX PR SCH (21:17)
--- NOTE | 2018-08-24 21:35 | INFECTIOUS DISEASE PROGRESS NO ---
DATE: 08/24/2018 PRESENT ILLNESS: The patient is being treated for pneumococcal pneumonia with a parapneumonic effusion. She has a pleural drain in place. The patient had 2 blood cultures drawn. One blood culture is not growing anything. The other blood culture is growing a gram-positive coccus that has not been identified. MEDICATIONS: The patient is on a combination of vancomycin and meropenem. PHYSICAL EXAMINATION: Vital Signs: Temperature is 98.1 degrees, pulse 103, respirations 18, blood pressure 136/77. General: This is a morbidly obese and sedated middle-aged female. She is in no acute distress. Head, eyes, ears, nose, and throat: She does not have any drainage from her nose or ears. She does not have any white patches on her tongue. Neck: No meningismus. Lungs: Clear to auscultation. Cardiovascular: Regular heart rate. Abdomen: Soft and nontender. Neurologic: The patient is sedated. She did respond when I asked her to open her mouth, but she did respond when I asked her to open her mouth. She does not have a tremor. DIAGNOSTIC STUDIES: There is no CBC for today. Chest x-ray shows improvement in the bilateral infiltrates. Creatinine is 0.5 GFR is greater than 60. As mentioned above, the blood cultures had been drawn when she came in. One blood culture did not grow anything. The other blood culture is growing a gram-positive coccus which has not yet been identified. ASSESSMENT AND PLAN: The patient has pneumococcal pneumonia with a parapneumonic effusion. A drain is in place. She has a positive blood culture, the significance of which I am uncertain at this time. My plan is to continue with meropenem and vancomycin. COMORBIDITIES: The patient has: 1. Morbid obesity. 2. She also has narcotic dependence. cc: Carloz Antonio MD
[2018-08-24] MEDS: FOLIC ACID 1 MG in NS 50 ML IV SCH (23:53)
[2018-08-25] MEDS: XOPENEX NEB INH SCH ×6 (03:29→23:40)
[2018-08-25] MEDS: MERREM 1 GM in NS 50 ML IV SCH ×3 (05:05→20:11)
[2018-08-25] MEDS: MOVANTIK PO SCH (06:01)
[2018-08-25] MEDS: PROTONIX PO SCH (06:01)
[2018-08-25] MEDS: VANCOMYCIN 2 GM in NS 500 ML IV SCH ×2 (06:01→16:52)
--- NOTE | 2018-08-25 07:29 | Diag Imaging Result Doc PS360 ---
EXAM: CHEST-PORTABLE INDICATION: Dyspnea TECHNIQUE: One view COMPARISON: 08/24/2018 FINDINGS: The pigtail catheter on the left has been removed. The loculated effusion on the left and the smaller effusion on the right are approximately stable. Airspace consolidations at the lung bases are stable. No new consolidation is identified. Cardiac silhouette is stable. IMPRESSION: Interval removal of pigtail drainage catheter. Stable chest, otherwise. Electronically signed by Edmond Petit 08/25/2018 7:27 AM
[2018-08-25 07:58] LABS: AGAP 8; BUN 3 mg/dL (8-22); CALCIUM 8.4 mg/dL (8.8-10.2); CHLORIDE 104 mmol/L (98-107); COSMO 280; CREATININE 0.4 mg/dL (0.5-0.9); ESTIMATED GFR > 60; GLUCOSE 103 mg/dL (70-104); POTASSIUM 3.7 mmol/L (3.5-5.1); SODIUM 142 mmol/L (136-145); TCO2 30 mmol/L (25-35)
[2018-08-25] MEDS: ICAR-C PO SCH ×2 (08:28→20:12)
[2018-08-25] MEDS: LOVENOX SUBQ SCH (08:28)
[2018-08-25] MEDS: LEXAPRO PO SCH (08:28)
[2018-08-25] MEDS: MIRALAX PO SCH ×2 (08:28→23:23)
[2018-08-25] MEDS: COLACE PO SCH ×2 (08:28→20:12)
[2018-08-25] MEDS: LYRICA PO SCH ×3 (08:28→16:52)
[2018-08-25] MEDS: SUBOXONE 8 MG/2 MG SL SCH ×2 (08:28→20:11)
[2018-08-25] MEDS: LACTULOSE PO SCH (08:29)
--- NOTE | 2018-08-25 09:54 | PROGRESS NOTE ---
DATE: 08/25/2018 Ms. Ruthie Singh had a 12-Faroese pigtail catheter placed in the left chest by radiology under CT guidance to drain some loculated fluid in the inferior aspect of the left chest. The fluid was thin. It is mostly red and the drainage has decreased. I removed the drain yesterday evening. She remains on IV antibiotics for bilateral pneumonia and maximum pulmonary physiotherapy needs to continue. cc: Mavis Wright MD
[2018-08-25] MEDS ORDERED: NS 250 ML ONE (11:51)
[2018-08-25] MEDS: KLONOPIN PO PRN (12:00)
--- NOTE | 2018-08-25 16:26 | PROGRESS NOTE ---
DATE: 08/25/2018 SUBJECTIVE: Patient resting in bed. Not in any obvious distress. OBJECTIVE: Vital signs: Vital signs are as follows: Temperature 98.2 degrees, pulse is 80, respirations 16, blood pressure 120/72, oxygen saturation is 100%. HEENT: She is atraumatic, normocephalic. Cardiovascular system: S1, S2. Respiratory system: Has evidence of good air entry bilaterally. Abdomen: Soft, nontender. No masses felt. Extremities: No evidence of edema. Central nervous system: No obvious focal deficits noted. LABS: Labs are as follows: Sodium is 142, potassium 3.7, chloride is 104, bicarbonate is 30. BUN is 3 creatinine 0.4. ASSESSMENT AND PLAN: 1. Pneumonia with left parapneumonic effusion. Continue antibiotics. Also management of left parapneumonic effusion per Surgery/Pulmonology. 2. Bacteremia secondary to Streptococcus aureus and also mitis. Antibiotic management per infectious disease team. 3. Anemia. Follow up on hemoglobin, hematocrit, transfuse packed red blood cells as needed. 4. Depression. Continue current antidepressant. 5. Deep vein thrombosis prophylaxis. Lovenox. cc: Antonio Fontanez MD
[2018-08-25 17:46] LABS: BASO# 0.12 X1000 (0.0-0.2); BASO% 1.6 % (0.0-0.8); EOS# 0.21 X1000 (0.0-0.7); EOS% 2.8 % (0.0-10.0); HEMATOCRIT 30.4 % (37.0-47.0); HEMOGLOBIN 8.6 g/dL (12.0-16.0); IMM GRAN# 0.02 X1000 (0.0-0.04); IMM GRAN% 0.3 % (0.0-0.5); LYMPH# 1.73 X1000 (1.2-3.4); LYMPH% 23.4 % (20.5-51.1); MCH 23.2 PG (27-31); MCHC 28.3 g/dL (33-37); MCV 81.9 FL (81-99); MONO# 0.73 X1000 (0.11-0.59); MONO% 9.9 % (1.7-9.3); MPV 10.7 FL (7.4-10.4); NEUT# 4.57 X1000 (1.4-6.5); PLT 520 X1000 (130-400); RBC 3.71 XMIL (4.2-5.4); RDW 17.3 % (11.5-14.5); WBC 7.38 X1000 (4.8-10.8)
[2018-08-25 17:58] LABS: AGAP 8; BUN 3 mg/dL (8-22); CALCIUM 8.5 mg/dL (8.8-10.2); CHLORIDE 99 mmol/L (98-107); COSMO 273; CREATININE 0.5 mg/dL (0.5-0.9); ESTIMATED GFR > 60; GLUCOSE 113 mg/dL (70-104); POTASSIUM 3.7 mmol/L (3.5-5.1); SODIUM 138 mmol/L (136-145); TCO2 31 mmol/L (25-35)
[2018-08-25 18:18] LABS: EOS 3 % (1-10); LYMPHS 23 % (21-51); MONO 4 % (1-9); SEGS 70 % (42-75)
--- NOTE | 2018-08-25 18:34 | INFECTIOUS DISEASE PROGRESS NO ---
DATE: 08/25/2018 PRESENT ILLNESS: Ms. Singh is being treated for pneumococcal pneumonia with a parapneumonic effusion. One out of two of her blood cultures so far have grown a strep mitis/ strep aureus. This may be a contaminant, but even if it is not, we are covering her for this organism with her current medication regimen. MEDICATIONS: She is receiving meropenem 1 g IV every 8 hours and IV vancomycin per pharmacy dosing. Today is day 5 of these medications. PHYSICAL EXAMINATION: Vital Signs: Temperature is 98.1 degrees, pulse rate 94 , respiratory rate 16, blood pressure 117/75, O2 saturation is 97% on 2 L nasal cannula. General: This is a morbidly obese, ill-appearing female. She is sitting up in bed, currently drowsy but arousable. HEENT: Atraumatic, normocephalic. Oral mucous membranes are pink and moist. Conjunctivae are pale. Neck: Supple. Trachea is midline. Respiratory: Lung sounds are clear in the upper lobes. Diminished in the bases. Cardiovascular: Heart rate and rhythm are regular. Normal sinus rhythm on the monitor. Pedal and radial pulses are +2 bilaterally. Abdomen: Soft, obese, and nontender. Bowel sounds are active. Neurologic: She is drowsy but arousable and oriented. Able to move around independently in the bed. Integumentary: There is a dressing in place to her left flank where the previous pleural drain had been. She also has a PICC line to the right upper arm. The site is without edema, erythema, or drainage. LABORATORY AND X-RAY: Today her creatinine is 0.4. Estimated GFR is greater than 60. Chest x-ray today shows loculated effusion on the left and a smaller effusion on the right which are stable, as well as airspace consolidations at the lung bases. Pathology has come back, which is negative for malignancy. ASSESSMENT AND PLAN: Ms. Singh is being treated for pneumococcal pneumonia with a parapneumonic effusion. There is 1/2 blood cultures which have grown a strep mitis/strep aureus. She is receiving IV vancomycin as well as meropenem, which we will continue at this time. Repeat blood cultures were done yesterday and we are awaiting those results. These plans have been discussed with and recommended by Dr. Antonio. COMORBIDITIES: For this patient include morbid obesity, chronic respiratory failure, and history of narcotic dependence. Dictated by JEN Londono for Carloz Antonio MD This chart was documented by, JEN Londono and accurately reflects the services performed, treatment plan and medical decisions as attested by the providers signature Carloz Antonio MD. cc: Carloz Antonio MD [facility]
[2018-08-25] MEDS: FOLIC ACID 1 MG in NS 50 ML IV SCH (20:11)
[2018-08-25] MEDS: DULCOLAX PR SCH (23:23)
[2018-08-26] MEDS: KLONOPIN PO PRN ×2 (00:04→16:55)
[2018-08-26] MEDS: XOPENEX NEB INH SCH ×6 (03:30→23:20)
[2018-08-26] MEDS: VANCOMYCIN 2 GM in NS 500 ML IV SCH ×2 (03:32→16:50)
[2018-08-26] MEDS: MERREM 1 GM in NS 50 ML IV SCH ×3 (03:32→20:38)
--- NOTE | 2018-08-26 04:30 | PULMONOLOGY PROGRESS NOTE ---
DATE: 08/25/2018 SUBJECTIVE: The patient is awake, alert and conversant. Her chest tube has been removed. She is ambulating in the hallway. OBJECTIVE: Vital Signs: The patient has been afebrile for the last 24 hours. Blood pressure is 146/74, heart rate 88, respiratory rate 20, oxygen saturation 97% on nasal cannula. HEENT: Pupils are equal and reactive. Oropharynx is clear. Neck: Supple. Chest: Reveals crackles at the left base. Cardiac: S1 and S2. Abdomen: Obese and soft. Extremities: Without edema. LABORATORY DATA: White blood count 7.38, hemoglobin 8.6, platelet count 520,000. No new laboratory data. IMPRESSION: The patient is a 37-year-old with chronic pneumothorax/cavity at the left base with pleural effusion, status post treatment for pneumococcal pneumonia, negative pleural fluid cultures, 1/2 blood cultures positive for strep marabilis/strep mitis (possible contaminant). RECOMMENDATIONS: 1. Continue antibiotics per Infectious Disease. 2. Encourage the patient to ambulate in the hallway. cc: Dipesh Gant MD
[2018-08-26] MEDS: PROTONIX PO SCH (06:21)
[2018-08-26] MEDS: MOVANTIK PO SCH (06:21)
--- NOTE | 2018-08-26 06:43 | Diag Imaging Result Doc PS360 ---
EXAM: CHEST-1 VIEW HISTORY: pneumonia TECHNIQUE: Portable chest single view COMPARISON: 08/25/2018 FINDINGS: Poor inspiratory effort. A right-sided PICC line has been placed. The tip overlies the distal superior vena cava. Heart is mildly enlarged and there is pulmonary edema. There are small bilateral pleural effusions. There may be underlying infiltrates in the lower lungs as well. IMPRESSION: No interval improvement. Electronically signed by Emile Hou 08/26/2018 6:41 AM
[2018-08-26] MEDS: LYRICA PO SCH ×3 (08:24→16:50)
[2018-08-26] MEDS: MIRALAX PO SCH ×2 (08:24→20:37)
[2018-08-26] MEDS: LEXAPRO PO SCH (08:25)
[2018-08-26] MEDS: COLACE PO SCH ×2 (08:25→20:38)
[2018-08-26] MEDS: SUBOXONE 8 MG/2 MG SL SCH ×2 (08:25→20:38)
[2018-08-26] MEDS: ICAR-C PO SCH ×2 (08:25→20:38)
[2018-08-26] MEDS: LOVENOX SUBQ SCH (08:26)
[2018-08-26] MEDS: LACTULOSE PO SCH (08:29)
--- NOTE | 2018-08-26 16:12 | PROGRESS NOTE ---
DATE: 08/26/2018 SUBJECTIVE: The patient is awake, not in any obvious distress. OBJECTIVE: Vital signs: Temperature 98 degrees, pulse 96, respiratory 16, blood pressure 130/82, oxygen saturation is 97%. HEENT: The patient is atraumatic and normocephalic. Cardiovascular: S1 and S2. Respiratory: Has evidence of good air entry bilaterally. Abdomen: Soft and nontender. No masses felt. Extremities: No evidence of edema which is significant. Neurologic: No obvious focal deficits noted. LABORATORY DATA: Magnesium level is 1.8. ASSESSMENT AND PLAN: 1. Pneumonia with left parapneumonic effusion. Continue antibiotics. Management of left foot the left parapneumonic effusion past surgeries/pulmonology. 2. Bacteremia secondary to Streptococcus oralis and also Streptococcus mitis. Antibiotic per Infectious Disease Team. 3. Anemia. Follow up on hemoglobin and hematocrit. Transfuse packed red blood cells as needed. 4. Depression. Continue antidepressant. 5. Deep vein thrombosis prophylaxis. Lovenox. cc: Antonio Fontanez MD
--- NOTE | 2018-08-26 17:56 | INFECTIOUS DISEASE PROGRESS NO ---
DATE: 08/26/2018 PRESENT ILLNESS: Ms. Singh is being treated for pneumococcal pneumonia and parapneumonic effusion. She did have a left pleural drain, which has been removed. There is a Strep bacteremia as well. MEDICATION: She is receiving day 6 of meropenem 1 g IV every 8 hours, and IV vancomycin per pharmacy dosing. PHYSICAL EXAMINATION: Vital Signs: Temperature is 98 degrees, pulse rate 96, respiratory rate 16, blood pressure 130/82, O2 saturation 97% on 2 L nasal cannula. General: This is a morbidly obese, chronically ill-appearing female. She is sitting up in bed, currently in no acute distress. HEENT: Atraumatic, normocephalic. Oral mucous membranes are pink and moist. Conjunctivae are pale. Neck: Supple. Trachea is midline. Cardiovascular: Heart rate and rhythm are regular. Normal sinus rhythm on the monitor. Radial and pedal pulses are palpable bilaterally. Respiratory: Lung sounds are clear in the upper lobes, diminished bilaterally. Abdomen: Soft, obese, nontender. Bowel sounds are active. Neurologic: She is a awake, alert, and oriented, able to move independently in the bed. Integumentary: There is a PICC line in place to the right upper arm. The site is without edema, erythema, or drainage. She also has a dressing in place to her left flank, where the previous pleural drain was. LABORATORY AND X-RAY: No labs today. Chest x-ray shows small bilateral pleural effusions and possible underlying infiltrates in the lower lung, with no interval improvement. ASSESSMENT AND PLAN: Ms. Singh is being treated for a pneumococcal pneumonia and a strep bacteremia. Based on her sterile blood cultures, today is day 2 of her treatment. For now, we will continue her vancomycin and meropenem as ordered. She will require 14 days of treatment for her strep bacteremia. These plans have been discussed with and recommended by Dr. Antonio. COMORBIDITIES: Morbid obesity, chronic respiratory failure, and history of narcotic dependence. Dictated by JEN Londono for Carloz Antonio MD This chart was documented by, JEN Londono and accurately reflects the services performed, treatment plan and medical decisions as attested by the providers signature Carloz Antonio MD. cc: Carloz Antonio MD [facility]WR[facility] HEALTH SYSTEMArnulfo
[2018-08-26] MEDS: DULCOLAX PR SCH (20:39)
[2018-08-26] MEDS: FOLIC ACID 1 MG in NS 50 ML IV SCH (23:50)
[2018-08-27] MEDS: MERREM 1 GM in NS 50 ML IV SCH ×3 (03:50→21:12)
[2018-08-27] MEDS: XOPENEX NEB INH SCH ×6 (03:53→23:00)
[2018-08-27] MEDS: VANCOMYCIN 2 GM in NS 500 ML IV SCH (04:35)
[2018-08-27] MEDS: MOVANTIK PO SCH (06:11)
[2018-08-27] MEDS: PROTONIX PO SCH (06:11)
--- NOTE | 2018-08-27 08:37 | Diag Imaging Result Doc PS360 ---
EXAM: CT THORAX W/O CONTRAST HISTORY: SOB TECHNIQUE: CT chest without contrast COMPARISON: 08/22/2018 FINDINGS: There is a small right-sided pleural effusion measuring 2.7 cm posteriorly and inferiorly in the midline. There is a thin long loculated collection in the lateral left hemithorax. This measures approximately 2.5 cm in greatest thickness. There are likely loculations within this with different air-fluid levels and air bubbles. There is atelectasis/infiltrates/or scarring in the lower lungs. The heart is not enlarged. No thoracic aortic aneurysm. Stable adenopathy. There are surgical clips at the GE junction and the gallbladder has been removed. No focal hepatic normality to the organs in the upper abdomen. IMPRESSION: 1.Small right pleural effusion similar to the prior study 2.There is a complex fluid collection in the posterior and lateral left hemithorax. This is smaller than on the prior study 3.Basilar atelectasis although there may be underlying small infiltrates or scarring This exam was performed using automated exposure control, adjustment of mA or kV according to patient size, and/or use of iterative reconstruction technique. Electronically signed by Emile Hou 08/27/2018 8:34 AM
[2018-08-27] MEDS: SUBOXONE 8 MG/2 MG SL SCH ×2 (08:59→20:05)
[2018-08-27] MEDS: COLACE PO SCH ×2 (09:01→20:14)
[2018-08-27] MEDS: LACTULOSE PO SCH (09:01)
[2018-08-27] MEDS: LEXAPRO PO SCH (09:01)
[2018-08-27] MEDS: ICAR-C PO SCH ×2 (09:01→20:14)
[2018-08-27] MEDS: LYRICA PO SCH ×3 (09:02→16:38)
[2018-08-27] MEDS: MIRALAX PO SCH ×2 (09:02→20:14)
[2018-08-27] MEDS: LOVENOX SUBQ SCH (09:02)
[2018-08-27] MEDS: KLONOPIN PO PRN (12:09)
--- NOTE | 2018-08-27 16:32 | PROGRESS NOTE ---
DATE: 08/27/2018 SUBJECTIVE: This morning Ms. Singh refers to be feeling a little bit weak but no fever. OBJECTIVE: Vitals: Blood pressure is 134/85, pulse is 93, respiration is 18, temperature 98 degrees. General: Ms. Singh is a 37-year-old morbidly obese female, BMI is 45.5, she is in bed, no seemingly distress. Mucosa is pink and moist. Anicteric. Acyanotic. Neck: Supple. No JVD. Chest: Air entry is bilaterally reduced, there is crackles posterior. Cardiovascular: Regular rate and rhythm. Abdomen: Soft, distended but nontender. Bowel sounds present. Extremities: No pedal edema. 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 No focal neurological deficit. Musculoskeletal: There is a dressing over the left posterior chest wall where the drainage was. LABORATORY DATA: None for today. Patient microbiology did show strep mitis culture, 1/2 was positive, previously she had a urine strep antigen positive but the culture blood was negative. A CT scan this morning showed small right pleural effusion similar to prior study. There is a complex fluid collection in the posterior lateral left hemithorax. This is smaller than the prior study. There is bibasilar atelectasis although there may be underlying small infiltrates or scarring. ASSESSMENT: 1. Loculated left pleural effusion, patient is status post thoracentesis. The repeat CT scan continues to show a complex fluid collection in the posterior lateral left hemithorax. I think patient would eventually need a chest tube with maybe VATS with chest tube placement and decortication, surgery is on board and we will wait for their further recommendation with that regard . 2. Status post streptococcal pneumonia and bacteremia. 3. Depression. Patient is on medications. 4. Constipation improved. 5. Strep mitis/strep oralis bacteremia but this was only 1/2. I am not sure if this was a true bacteremia or it was a contaminant. In any case repeat blood culture is negative. cc: Hal Carney MD
[2018-08-27] MEDS: DULCOLAX PR SCH (20:14)
[2018-08-27] MEDS: FOLIC ACID 1 MG in NS 50 ML IV SCH ×2 (21:56→22:09)
[2018-08-28] MEDS: XOPENEX NEB INH SCH ×6 (03:05→23:10)
[2018-08-28] MEDS: MERREM 1 GM in NS 50 ML IV SCH ×3 (05:10→21:26)
[2018-08-28] MEDS: VANCOMYCIN 2 GM in NS 500 ML IV SCH ×2 (05:45→22:47)
[2018-08-28] MEDS: MOVANTIK PO SCH (06:34)
[2018-08-28] MEDS: PROTONIX PO SCH (06:35)
[2018-08-28 07:40] LABS: BASO# 0.05 X1000 (0.0-0.2); BASO% 0.7 % (0.0-0.8); HEMATOCRIT 29.3 % (37.0-47.0); HEMOGLOBIN 8.1 g/dL (12.0-16.0); IMM GRAN# 0.02 X1000 (0.0-0.04); IMM GRAN% 0.3 % (0.0-0.5); LYMPH% 22.5 % (20.5-51.1); MCH 22.7 PG (27-31); MCHC 27.6 g/dL (33-37); MCV 82.1 FL (81-99); MONO# 0.73 X1000 (0.11-0.59); MONO% 10.9 % (1.7-9.3); MPV 10.6 FL (7.4-10.4); NEUT# 4.17 X1000 (1.4-6.5); NEUT% 62.6 % (42.2-75.2); PLT 445 X1000 (130-400); RBC 3.57 XMIL (4.2-5.4); WBC 6.67 X1000 (4.8-10.8)
[2018-08-28 08:07] LABS: AGAP 8; ALB/GLOB RATIO 0.9; ALBUMIN 2.8 g/dL (3.5-5.0); ALKALINE PHOSPHATASE 63 U/L (32-104); BUN 3 mg/dL (8-22); CALCIUM 8.6 mg/dL (8.8-10.2); CHLORIDE 100 mmol/L (98-107); COSMO 274; CREATININE 0.4 mg/dL (0.5-0.9); ESTIMATED GFR > 60; GLUCOSE 100 mg/dL (70-104); GOT 6 U/L (10-30); GPT < 5 U/L (10-36); POTASSIUM 3.2 mmol/L (3.5-5.1); SODIUM 139 mmol/L (136-145); TCO2 31 mmol/L (25-35); TOTAL BILIRUBIN 0.34 mg/dL (0.20-1.00); TOTAL PROTEIN 5.8 g/dL (6.3-8.3)
[2018-08-28] MEDS: LOVENOX SUBQ SCH (08:31)
[2018-08-28] MEDS: LYRICA PO SCH ×3 (08:31→17:09)
[2018-08-28] MEDS: SUBOXONE 8 MG/2 MG SL SCH ×2 (08:31→20:07)
[2018-08-28] MEDS: MIRALAX PO SCH ×2 (08:31→20:06)
[2018-08-28] MEDS: COLACE PO SCH ×2 (08:31→20:06)
[2018-08-28] MEDS: LEXAPRO PO SCH (08:32)
[2018-08-28] MEDS: ICAR-C PO SCH ×2 (08:32→20:06)
[2018-08-28] MEDS: LACTULOSE PO SCH (08:32)
--- NOTE | 2018-08-28 09:03 | Diag Imaging Result Doc PS360 ---
EXAM: CHEST-PORTABLE - 08/28/2018 HISTORY: dyspnea TECHNIQUE: Portable chest COMPARISON: 08/26/2018 FINDINGS: There is mild cardiomegaly. There are vascular congestion, small right pleural effusion, small to medium left pleural effusion similar to prior. No pneumothorax identified. PICC remains in place. IMPRESSION: Apparent pulmonary edema similar to prior. Electronically signed by Sylvester Joseph 08/28/2018 9:00 AM
[2018-08-28] MEDS: KLONOPIN PO PRN ×2 (11:54→21:24)
[2018-08-28] MEDS ORDERED: KLOR-CON PO ONE (14:51)
--- NOTE | 2018-08-28 15:06 | PROGRESS NOTE ---
DATE: 08/28/2018 SUBJECTIVE: Patient is awake. Not in any obvious distress. OBJECTIVE: Vital signs: Temperature 98.5 degrees, pulse is 101, respiratory rate is 18, blood pressure is 137/85, oxygen saturation is 98%. HEENT: Atraumatic, normocephalic. Cardiovascular: S1, S2. Respiratory: Has evidence of good air entry bilaterally. Abdomen: Obese, nontender. No masses. Extremities: No evidence of significant edema. Central nervous system: No obvious focal deficits noted. LABS: WBC 6.67, hematocrit 29.3, platelet count of 445,000. Sodium is 139, potassium 3.2, chloride is 100, bicarb 31, BUN is 3, creatinine 0.4. ASSESSMENT AND PLAN: 1. Pneumonia with left parapneumonic effusion. Continue antibiotics. Management of the left parapneumonic effusion. Surgery/pulmonology. 2. Bacteremia secondary to strep oralis and also strep mitis. Antibiotic per Infectious Disease team. 3. Hypokalemia. Replace potassium. Check magnesium level. 4. Anemia. Follow up on hemoglobin and hematocrit. Transfuse PRBCs as needed. 5. Depression. Continue antidepressant. 6. Deep vein thrombosis prophylaxis. Lovenox. cc: Antonio Fontanez MD
[2018-08-28] MEDS: DULCOLAX PR SCH (20:06)
[2018-08-28] MEDS: FOLIC ACID 1 MG in NS 50 ML IV SCH (22:02)
[2018-08-29] MEDS: XOPENEX NEB INH SCH ×6 (03:25→23:15)
[2018-08-29] MEDS: MOVANTIK PO SCH (06:13)
[2018-08-29] MEDS: PROTONIX PO SCH (06:13)
[2018-08-29] MEDS: MERREM 1 GM in NS 50 ML IV SCH ×2 (06:13→13:58)
[2018-08-29 07:44] LABS: AGAP 10; BUN 3 mg/dL (8-22); CALCIUM 8.7 mg/dL (8.8-10.2); CHLORIDE 100 mmol/L (98-107); COSMO 276; CREATININE 0.5 mg/dL (0.5-0.9); ESTIMATED GFR > 60; GLUCOSE 95 mg/dL (70-104); POTASSIUM 3.4 mmol/L (3.5-5.1); SODIUM 140 mmol/L (136-145); TCO2 30 mmol/L (25-35)
[2018-08-29] MEDS: LOVENOX SUBQ SCH (08:17)
[2018-08-29] MEDS: COLACE PO SCH ×2 (08:17→20:52)
[2018-08-29] MEDS: MIRALAX PO SCH ×2 (08:17→20:52)
[2018-08-29] MEDS: LEXAPRO PO SCH (08:17)
[2018-08-29] MEDS: LACTULOSE PO SCH (08:17)
[2018-08-29] MEDS: ICAR-C PO SCH ×2 (08:17→20:52)
[2018-08-29] MEDS: LYRICA PO SCH ×3 (08:18→16:49)
[2018-08-29] MEDS: SUBOXONE 8 MG/2 MG SL SCH ×2 (08:18→20:52)
[2018-08-29] MEDS: KLONOPIN PO PRN ×2 (14:02→23:42)
[2018-08-29] MEDS ORDERED: KLOR-CON PO ONE (17:08)
--- NOTE | 2018-08-29 17:49 | PROGRESS NOTE ---
DATE: 08/29/2018 SUBJECTIVE: The patient resting in bed. Not in any obvious distress. OBJECTIVE: Vital Signs: Temperature is 97.6, pulse 91, respirations 20, blood pressure is 130/70, oxygen 98%. HEENT: Atraumatic, normocephalic. Cardiovascular: S1, S2. Respiratory system: Has evidence of good air entry bilaterally. Abdomen: Soft, nontender. Extremities: No significant edema. Central nervous system: No obvious focal deficits. LABS: Sodium is 140, potassium 3.4, chloride 100, bicarb 30, BUN is 3, creatinine 0.4. X-ray of the chest done on 08/28/2018 shows evidence of apparent pulmonary edema. CT scan of the chest done on 08/27/2018 shows a small right pleural effusion. Complex fluid collection in the posterior and lateral left hemithorax, as well as basilar atelectasis, although there may be underlying small infiltrates or scarring. ASSESSMENT AND PLAN: 1. Pneumonia with left parapneumonic effusion. Continue antibiotics. For the left parapneumonic effusion, Surgery as well as Pulmonology following. 2. Bacteremia, secondary to strep oralis as well as strep mitis. Antibiotics per infectious disease team. 3. Hypokalemia. Replace potassium level. 4. Anemia. Follow up on hemoglobin and hematocrit. Transfuse packed red blood cells as needed. 5. Depression. Continue escitalopram. 6. Deep vein thrombosis prophylaxis. Lovenox. 7. Gastrointestinal prophylaxis. Proton pump inhibitor. cc: Antonio Fontanez MD
[2018-08-29] MEDS: ROCEPHIN 2 GM in NS 50 ML IV SCH (18:20)
--- NOTE | 2018-08-29 18:20 | INFECTIOUS DISEASE PROGRESS NO ---
DATE: 08/29/2018 PRESENT ILLNESS: Ms. Singh is being treated for a pneumococcal pneumonia and parapneumonic effusion. There is also a Strep bacteremia. MEDICATION: She is receiving meropenem 1 g IV every 8 hours and IV vancomycin per pharmacy dosing. Based on her sterile blood cultures, today is day 5 of her treatment for the bacteremia. PHYSICAL EXAMINATION: Vital Signs: Temperature is 97.6, pulse rate 91, respiratory rate 12, blood pressure 130/72, O2 sats 98% on room air. General: This is a morbidly obese, chronically ill-appearing female. She is sitting on the side of the bed, currently in no acute distress. HEENT: Atraumatic, normocephalic. Oral mucous membranes are pink and moist. Conjunctivae are pale. Neck: Supple. Trachea is midline. Cardiovascular: Heart rate and rhythm are regular. Normal sinus rhythm on the monitor. Pedal and radial pulses are palpable bilaterally. Respiratory: Lung sounds are clear and diminished bilaterally. Abdomen: Soft , obese, nontender. Bowel sounds are active. Neurologic: She is awake, alert and oriented, and ambulating in the halls without assistance. LABORATORY AND X-RAY: Today there is no CBC, but creatinine is 0.6. Estimated GFR is greater than 60. No imaging reports today, but yesterday her chest x-ray showed apparent pulmonary edema similar to prior. CT scan done two days ago shows bibasilar atelectasis, with possible underlying small infiltrates or scarring. ASSESSMENT AND PLAN: Ms. Singh is being treated for a pneumococcal pneumonia and a Strep bacteremia. Today is day 5 of treatment for her bacteremia based on her sterile blood cultures. She needs 14 total days of treatment for that. We will discontinue her IV vancomycin and meropenem at this point and start her on Rocephin 2 g IV twice a day. We will also draw a procalcitonin in the morning since most of her imaging reports are vague as to whether it is an actual pneumonia or fluid. Previously, there was no growth on her pleural fluid on the cultures. Tentative plan is for her to be discharged in a couple of days, if the procalcitonin level shows that it is unlikely she has a respiratory tract infection. We will continue her on 2 g of IV Rocephin daily at home. The patient does not have any insurance and also states she is unable to get transportation to the hospital, even though she only lives 2 miles away. She does not have money for the bus. I have gone ahead and put in a social work consult for her to see if there is something they can do so that she can get her last few days of medication for her bacteremia at home. Also before she leaves, we will consider the results of her procalcitonin as to whether she needs continued treatment for pneumonia or if a respiratory tract infection is unlikely. These plans have been discussed with and recommended by Dr. Antonio. COMORBIDITIES: For Ms. Singh include morbid obesity, chronic respiratory failure and history of narcotic dependence. Dictated by JEN Londono for Carloz Antonio MD This chart was documented by, JEN Londono and accurately reflects the services performed, treatment plan and medical decisions as attested by the providers signature Carloz Antonio MD. cc: Carloz Antonio MD MTDD
[2018-08-29] MEDS: DULCOLAX PR SCH (20:52)
[2018-08-29] MEDS: FOLIC ACID 1 MG in NS 50 ML IV SCH (23:42)
[2018-08-30] MEDS: XOPENEX NEB INH SCH ×6 (03:35→23:01)
[2018-08-30] MEDS: ROCEPHIN 2 GM in NS 50 ML IV SCH ×2 (05:30→17:14)
[2018-08-30] MEDS: PROTONIX PO SCH (06:31)
[2018-08-30] MEDS: MOVANTIK PO SCH (06:31)
[2018-08-30 07:52] LABS: BASO# 0.06 X1000 (0.0-0.2); BASO% 0.9 % (0.0-0.8); EOS# 0.23 X1000 (0.0-0.7); EOS% 3.5 % (0.0-10.0); HEMATOCRIT 29.8 % (37.0-47.0); HEMOGLOBIN 8.5 g/dL (12.0-16.0); LYMPH# 1.82 X1000 (1.2-3.4); LYMPH% 27.3 % (20.5-51.1); MCH 23.4 PG (27-31); MCHC 28.5 g/dL (33-37); MCV 81.9 FL (81-99); MONO# 0.64 X1000 (0.11-0.59); MONO% 9.6 % (1.7-9.3); MPV 11.1 FL (7.4-10.4); NEUT# 3.91 X1000 (1.4-6.5); NEUT% 58.7 % (42.2-75.2); PLT 400 X1000 (130-400); RBC 3.64 XMIL (4.2-5.4); RDW 16.6 % (11.5-14.5); WBC 6.66 X1000 (4.8-10.8)
[2018-08-30 08:14] LABS: AGAP 9; BUN 4 mg/dL (8-22); CALCIUM 8.5 mg/dL (8.8-10.2); CHLORIDE 102 mmol/L (98-107); COSMO 280; CREATININE 0.5 mg/dL (0.5-0.9); ESTIMATED GFR > 60; GLUCOSE 96 mg/dL (70-104); POTASSIUM 3.7 mmol/L (3.5-5.1); SODIUM 142 mmol/L (136-145); TCO2 31 mmol/L (25-35)
[2018-08-30] MEDS: ICAR-C PO SCH ×2 (09:02→20:42)
[2018-08-30] MEDS: LEXAPRO PO SCH (09:02)
[2018-08-30] MEDS: COLACE PO SCH ×2 (09:02→20:42)
[2018-08-30] MEDS: LOVENOX SUBQ SCH (09:02)
[2018-08-30] MEDS: LYRICA PO SCH ×3 (09:02→17:14)
[2018-08-30] MEDS: SUBOXONE 8 MG/2 MG SL SCH ×2 (09:02→20:42)
[2018-08-30] MEDS: LACTULOSE PO SCH (09:04)
[2018-08-30] MEDS: MIRALAX PO SCH ×2 (09:10→20:41)
[2018-08-30] MEDS: KLONOPIN PO PRN ×2 (13:32→20:42)
--- NOTE | 2018-08-30 16:22 | PROGRESS NOTE ---
DATE: 08/30/2018 SUBJECTIVE: Patient has no focal complaints. OBJECTIVE: Blood pressure 144/77, heart rate of 86, respiratory rate of 22, temperature 98 degrees, 97% on room air.Cardiovascular: Irregular rate and rhythm. Pulmonary : Bilateral breath sounds. Clear to auscultation. Gastrointestinal: Soft, nontender, nondistended. Bowel sounds are positive. PROBLEM LIST: 1. Pneumonia, left parapneumonic effusion. Despite her prolonged course, she is doing really well, especially considering that the last time I saw her she looked like she was on the threshold of intubation, so she is much improved. Appreciate Dr. Antonio' and Dr. Gant's intervention. Fortunately, I guess she did not require decortication. 2. Streptococcus mitis oralis bacteremia, which is a group D Streptococcus. She is on Rocephin. She needs to complete 2 weeks. Today will be day 6 I believe. Unfortunately, she has very limited resources, no car. It is going to be difficult to give her medications at home or have her come back and get medications, so she has got another 8 days of treatment and will likely be inpatient unless we work with Social Work to see about other options. 3. Hypokalemia, stable. 4. Anemia. Stable hemoglobin and hematocrit. 5. Depression. She is on Lexapro. She requested prescriptions for that to go home. We will continue to follow. DISPOSITION: Again pending improvement or completion of her IV antibiotics. cc: Jordan Escobar MD MTDD
--- NOTE | 2018-08-30 19:31 | INFECTIOUS DISEASE PROGRESS NO ---
DATE: 08/30/2018 PRESENT ILLNESS: Ms. Singh is being treated for pneumococcal pneumonia and parapneumonic effusion, as well as a Strep bacteremia. MEDICATIONS: Based on the sterile blood cultures, today is day 6 of treatment for her bacteremia. She is currently receiving Rocephin 2 g IV every 12 hours. PHYSICAL EXAMINATION: Vital Signs: Temperature is 98, pulse rate 86, respiratory rate 22, blood pressure 144/77, O2 sats 97% on room air. General: This is a morbidly obese, chronically ill- appearing female. She is lying in the bed currently in no acute distress. HEENT: Atraumatic, normocephalic. Oral mucous membranes are pink and moist. Conjunctivae are pale. Neck: Supple. Trachea is midline. Cardiovascular: Heart rate and rhythm are regular. Normal sinus rhythm on the monitor. Pedal and radial pulses are palpable bilaterally. Respiratory: Lung sounds are clear in the upper lobes, diminished in the mid and bases bilaterally. Abdomen : Soft, obese and nontender. Bowel sounds are active. Neurologic: She is awake, alert, oriented and able to ambulate without assistance. LABORATORY AND X-RAY: Today her white count is 6.66, hemoglobin 8.5, platelet count is 400,000. Creatinine is 0..5 estimated GFR is greater than 60. No imaging reports today. ASSESSMENT AND PLAN: Ms. Singh is being treated for pneumococcal pneumonia and Strep bacteremia. She is on day 6 of her treatment for her bacteremia and will need a total of 14 days. At this point, we will continue Rocephin as ordered. We are awaiting results of her procalcitonin to see if there is need to treat her for an actual pneumonia or if it is simply fluid. Hopefully, we can discharge her tomorrow with daily IV Rocephin 2 g. Unfortunately, there are some obstacles to home treatment as well as to outpatient infusion. She can get a bus voucher for during the week, however, they do not run on the weekends. Social workers are looking at what can be done for her to complete treatment for the bacteremia. These plans have been discussed with and recommended by Dr. Antonio. COMORBIDITIES: For Ms. Singh include morbid obesity, chronic respiratory failure and history of narcotic dependence. Dictated by JEN Londono for Carloz Antonio MD This chart was documented by, JEN Londono and accurately reflects the services performed, treatment plan and medical decisions as attested by the providers signature Carloz Antonio MD. cc: Carloz Antonio MD MTDD
[2018-08-30] MEDS: FOLIC ACID 1 MG in NS 50 ML IV SCH (20:41)
[2018-08-30] MEDS: DULCOLAX PR SCH (20:42)
[2018-08-31] MEDS: XOPENEX NEB INH SCH ×5 (03:29→20:10)
[2018-08-31] MEDS: ROCEPHIN 2 GM in NS 50 ML IV SCH (04:19)
[2018-08-31] MEDS: PROTONIX PO SCH (06:15)
[2018-08-31] MEDS: MOVANTIK PO SCH (06:15)
[2018-08-31 07:19] LABS: BASO# 0.06 X1000 (0.0-0.2); BASO% 0.9 % (0.0-0.8); EOS# 0.22 X1000 (0.0-0.7); EOS% 3.4 % (0.0-10.0); HEMATOCRIT 29.7 % (37.0-47.0); HEMOGLOBIN 8.5 g/dL (12.0-16.0); LYMPH# 1.66 X1000 (1.2-3.4); LYMPH% 25.8 % (20.5-51.1); MCH 23.2 PG (27-31); MCHC 28.6 g/dL (33-37); MCV 80.9 FL (81-99); MONO# 0.54 X1000 (0.11-0.59); MONO% 8.4 % (1.7-9.3); NEUT# 3.96 X1000 (1.4-6.5); NEUT% 61.5 % (42.2-75.2); PLT 374 X1000 (130-400); RBC 3.67 XMIL (4.2-5.4); RDW 16.7 % (11.5-14.5); WBC 6.44 X1000 (4.8-10.8)
[2018-08-31 07:28] LABS: AGAP 9; BUN 4 mg/dL (8-22); CALCIUM 8.5 mg/dL (8.8-10.2); CHLORIDE 104 mmol/L (98-107); COSMO 282; CREATININE 0.6 mg/dL (0.5-0.9); ESTIMATED GFR > 60; GLUCOSE 101 mg/dL (70-104); POTASSIUM 3.8 mmol/L (3.5-5.1); SODIUM 143 mmol/L (136-145); TCO2 30 mmol/L (25-35)
--- NOTE | 2018-08-31 07:52 | Diag Imaging Result Doc PS360 ---
CHEST-2 VIEWS - 08/31/2018 INDICATION: abnormal exam COMPARISON: 08/28/2018 FINDINGS: There has been slight increase in size of the small bilateral pleural effusions. Stable faint infiltrates in the lung bases bilaterally. Stable significant linear atelectasis in the lung bases. Heart size remains top normal. IMPRESSION: Slight increase in the size of the bilateral pleural effusions. Electronically signed by Raymond Schmidt 08/31/2018 7:49 AM
[2018-08-31] MEDS: SUBOXONE 8 MG/2 MG SL SCH (09:40)
[2018-08-31] MEDS: ICAR-C PO SCH (09:41)
[2018-08-31] MEDS: LOVENOX SUBQ SCH (09:42)
[2018-08-31] MEDS: COLACE PO SCH (09:42)
[2018-08-31] MEDS: MIRALAX PO SCH (09:42)
[2018-08-31] MEDS: LEXAPRO PO SCH (09:42)
[2018-08-31] MEDS: LACTULOSE PO SCH (09:42)
[2018-08-31] MEDS: LYRICA PO SCH ×2 (09:42→14:27)
[2018-08-31] MEDS ORDERED: LASIX IV SCH (11:15)
--- NOTE | 2018-08-31 12:24 | PROGRESS NOTE ---
DATE: 08/31/2018 SUBJECTIVE: Patient has no focal complaints. OBJECTIVE: Vital signs: Blood pressure is 122/74, heart rate is 68, respiratory 15, temperature 98.5 degrees. Cardiovascular: Regular rate and rhythm. Pulmonary: Bilateral breath sounds. Clear to auscultation. GI: Soft, nontender, nondistended. Bowel sounds are positive. LABORATORY DATA: White count is 6, hemoglobin and hematocrit 8 and 29, platelets 374,000. Basic was normal. PROBLEM LIST: 1. Pneumonia, left parapneumonic effusion. Per x-ray though looks like fluid is increased a bit. That is probably related to fluid. I am just going to initiate some diuretic and we will see how she does. Clinically she is doing better. 2. Streptococcus mitis and oralis bacteremia. She will need 2 weeks total, today is day 7 so another week. So early next week she will go home. I have suggested she probably could go home Wednesday and then get her last couple doses outpatient through PICC. She is looking at that. She has no ride to take her to on the weekends, so we are kind of stuck there at least through the wednesday. 3. Anemia, stable. 4. Depression. She is on Lexapro and well-controlled. DISPOSITION: Anticipate discharge next week. cc: Jordan Escobar MD MTDD
[2018-08-31] MEDS: KLONOPIN PO PRN (13:07)
--- NOTE | 2018-08-31 18:18 | INFECTIOUS DISEASE PROGRESS NO ---
DATE: 08/31/2018 Ms. Singh had a procalcitonin level come back today at less than 0.10, making it very unlikely that she has a respiratory tract infection. So at this point, she only needs to complete treatment for her bacteremia. We will go ahead and discontinue her PICC line and give her Levaquin to finish out the treatment of her bacteremia. She has already completed 7 days using Rocephin. She has a bottle of Levaquin which we discharged her with previously that has 12 pills in the bottle. I have explained to her that she only needs to take 7 of those, one a day for the next 7 days, and that will complete her treatment for her bacteremia. Since she does not have a respiratory tract infection at this point, we will not follow up with her for now but will be available on a p.r.n. basis. These plans have been discussed with and recommended by Dr. Antonio. Dictated by JEN Londono for Carloz Antonio MD This chart was documented by, JEN Londono and accurately reflects the services performed, treatment plan and medical decisions as attested by the providers signature Carloz Antonio MD. cc: Carloz Antonio MD
[2018-08-31 19:41] VITALS: BP 134/85
== END 2018-08-31 21:20 | disposition home or self-care (01) | DRG 194 ==
LOC: ED 12:56 → SUATTDRO 17:16 → 3N 17:16
PROVIDERS: ATTEND Internal Medicine
CPT/HCPCS: 32557; 36569; 71010; 71020; 71045; 71046; 71250; 74019; 74020; 80048; 80053; 80202; 81001; 81025; 82805; 83735; 84145; 85025; 85610; 85730; 87040; 87070; 87077; 87088; 87102; 87116; 87186; 87205; 87206; 87275; 87276; 87449; 87804; 87899; 88312; 89051; 94640; 94761; 94799; 96365; 96367; 96368; 96375; 99285; A9270; J0131; J0696; J1650; J1940; J2185; J2405; J3370; J3475; J7030; J7040; J7050